=== PATIENT | male | born 1965 ===

== ENCOUNTER 2018-02-07 17:34 | Inpatient (IN) | payer MEDICARE, MEDICAID ==
--- NOTE | 2018-02-07 18:35 | C.PDOC ---
History Of Present Illness 52 y/o male, with PMHx of HIV, CVA with left side weakness, seizure, and schizophrenia, is sent to ED from [facility] for elevated BUN and creatinine. Limited history, pt is awake but confused. No complaints at this time. Time Seen by Provider: 02/07/18 18:34 Chief Complaint (Nursing): Abnormal Labs History Per: Patient History/Exam Limitations: clinical condition Past Medical History Reviewed: Historical Data, Nursing Documentation, Vital Signs Vital Signs: Last Vital Signs Temp 98.2 F 02/08/18 16:00 Pulse 83 02/08/18 16:00 Resp 20 02/08/18 16:00 BP 135/72 02/08/18 16:00 Pulse Ox 99 02/08/18 16:00 - Medical History PMH: HIV, Schizophrenia, Seizures, TIA Family History: States: Unknown Family Hx - Social History Hx Alcohol Use: No Hx Substance Use: No Review Of Systems Review Of Systems: ROS cannot be obtained secondary to pt's inabilty to answer questions. Physical Exam - Physical Exam Appears: Non-toxic, No Acute Distress Skin: Normal Color, Warm, Dry Head: Atraumatic, Normacephalic Eye(s): bilateral: Normal Inspection Oral Mucosa: Moist Neck: Supple Cardiovascular: Rhythm Regular Respiratory: Normal Breath Sounds, No Rales, No Rhonchi, No Wheezing Gastrointestinal/Abdominal: Soft, No Tenderness Back: No CVA Tenderness Neurological/Psych: Oriented x3 ED Course And Treatment - Laboratory Results Result Diagrams: 02/08/18 13:37 02/08/18 13:37 O2 Sat by Pulse Oximetry: 98 (RA) Pulse Ox Interpretation: Normal Medical Decision Making Medical Decision Makin yr old male presents from [place] for Elevated BUN:Cr. No other complaints. Has been at baseline mentation and physical capacity per RN from [facility]. Unk baseline Cr- per [facility] staff. Will likely require renal workup. Plan: Blood work UA CXR bladder scan Appreciate consult w/ Dr. Kait Gonzalez, to admit to his service. Afebrile here, no N/V. Urine unremarkable. Disposition - Disposition Disposition: HOSPITALIZED Disposition Time: 23:00 Condition: GOOD - Clinical Impression Clinical Impression: NIURKA (acute kidney injury), Elevated BUN, Elevated creatine kinase - Scribe Statement The provider has reviewed the documentation as recorded by the Scribe KP All medical record entries made by the Scribe were at my direction and personally dictated by me. I have reviewed the chart and agree that the record accurately reflects my personal performance of the history, physical exam, medical decision making, and the department course for this patient. I have also personally directed, reviewed, and agree with the discharge instructions and disposition.
[2018-02-07 18:37] LABS: BASO % 0.3 % (0.0-2.0); EOS # 0.1 K/uL (0.0-0.7); EOS % 1.3 % (0.0-4.0); MEAN CELL VOLUME 96.2 fL (80.0-94.0); MEAN CORPUSCULAR HEMOGLOBIN 32.5 pg (27.0-31.0); MEAN CORPUSCULAR HGB CONC 33.8 g/dL (33.0-37.0); MEAN PLATELET VOLUME 7.3 fL (7.2-11.7); MONO # 0.9 K/uL (0.0-0.8); MONO % 8.7 % (0.0-10.0); NEUT # 7.6 K/uL (1.8-7.0); NEUT % 70.7 % (50.0-75.0); RBC 3.39 Mil/uL (4.40-5.90); WHITE BLOOD COUNT 10.8 K/uL (4.8-10.8)
[2018-02-07 18:47] LABS: ALB/GLOB RATIO 1.1 (1.0-2.1); ALBUMIN 3.7 g/dL (3.5-5.0); CALCIUM 8.8 mg/dl (8.6-10.4)
[2018-02-07 20:33] LABS: URINE BACTERIA RARE (<OCC); URINE BILIRUBIN NEGATIVE (NEGATIVE); URINE BLOOD 2+ (NEGATIVE); URINE CLARITY Hazy (Clear); URINE COLOR Yellow (YELLOW); URINE GLUCOSE (UA) 3+ mg/dL (Normal); URINE LEUKOCYTE ESTERASE TRACE Leu/uL (Negative); URINE PROTEIN 2+ mg/dL (NEGATIVE); URINE UROBILINOGEN NORMAL mg/dL (0.2-1.0)
[2018-02-08] MEDS ORDERED: ENTECAVIR 1 MG PO SCH (00:30)
[2018-02-08] MEDS ORDERED: Sodium Chloride 0.9% 1,000 ML IV SCH (00:45)
--- NOTE | 2018-02-08 10:23 | CP.PCM.CON ---
History of Present Illness - History of Present Illness History of Present Illness: 52 y/o male, with PMHx of HIV, h/o CVA with left side, seizure history, and schizophrenia, is sent to ED from [facility] for elevated BUN and creatinine. Limited history, pt is awake but confused. No complaints at this time. Unable to get hx from patient Review of Systems - Review of Systems Systems not reviewed;Unavailable: Altered Mental Status Past Patient History - Past Medical History & Family History Past Medical History?: Yes Pertinent Family History: unknown - Past Social History Smoking Status: Heavy Smoker > 10 Cigarettes Daily Home Situation {Lives}: Halfway - CARDIAC Hx Cardiac Disorders: No - PULMONARY Hx Respiratory Disorders: No - NEUROLOGICAL Hx Seizures: Yes Hx Transient Ischemic Attacks (TIA): Yes - HEENT Hx HEENT Problems: No - RENAL Hx Chronic Kidney Disease: No - ENDOCRINE/METABOLIC Hx Endocrine Disorders: No - HEMATOLOGICAL/ONCOLOGICAL Hx Human Immunodeficiency Virus (HIV): Yes - INTEGUMENTARY Hx Dermatological Problems: No - MUSCULOSKELETAL/RHEUMATOLOGICAL Hx Musculoskeletal Disorders: Yes Hx Falls: Yes Hx Fractures: Yes Hx Unsteady Gait: Yes - GASTROINTESTINAL Hx Gastrointestinal Disorders: No - GENITOURINARY/GYNECOLOGICAL Hx Genitourinary Disorders: No - PSYCHIATRIC Hx Schizophrenia: Yes Hx Substance Use: No - SURGICAL HISTORY Hx Surgeries: No - ANESTHESIA Hx Anesthesia: Yes Hx Anesthesia Reactions: No Meds Allergies/Adverse Reactions: Allergies Allergy/AdvReac Type Severity Reaction Status Date / Time No Known Allergies Allergy Unverified 02/07/18 17:47 - Medications Medications: Current Medications Docusate Sodium (Colace) 100 mg PO HS [facility] Emtricitabine/Tenofovir (Truvada 200 Mg-300 Mg) 1 tab PO DAILY [facility] PRN Reason: Protocol Heparin Sodium (Porcine) (Heparin) 5,000 units SC Q12 [facility] Home Med (Etravirine [Intelence]) 200 mg PO BID [facility] Home Med (Entecavir [Entecavir]) 1 mg PO Q2D [facility] Sodium Chloride (Sodium Chloride 0.9%) 1,000 mls @ 50 mls/hr IV .Q20H [facility] Last Admin: 02/08/18 01:15 Dose: 50 mls/hr Leucovorin Calcium (Leucovorin) 10 mg PO DAILY [facility] Mirtazapine (Remeron) 15 mg PO HS [facility] Olanzapine (Zyprexa) 15 mg PO HS [facility] Raltegravir (Isentress) 400 mg PO BID [facility] PRN Reason: Protocol Topiramate (Topamax) 25 mg PO DAILY [facility] Vitamin B Complex/Vitamin C (Berocca) 1 tab PO DAILY [facility] Physical Exam - Constitutional Appears: No Acute Distress, Chronically Ill - Head Exam Head Exam: ATRAUMATIC, NORMAL INSPECTION - Eye Exam Eye Exam: EOMI, Normal appearance - Neck Exam Neck exam: Positive for: Normal Inspection. Negative for: Tenderness - Respiratory Exam Respiratory Exam: Clear to Auscultation Bilateral, NORMAL BREATHING PATTERN - Cardiovascular Exam Cardiovascular Exam: REGULAR RHYTHM, +S1 - GI/Abdominal Exam GI & Abdominal Exam: Distended, Organomegaly. absent: Tenderness - Extremities Exam Extremities exam: Positive for: normal inspection. Negative for: tenderness - Neurological Exam Neurological exam: Altered - Skin Skin Exam: Dry, Warm Results - Vital Signs Recent Vital Signs: Last Vital Signs Temp 98.1 F 02/08/18 00:00 Pulse 78 02/08/18 00:00 Resp 20 02/08/18 00:00 BP 140/83 02/08/18 00:00 Pulse Ox 98 02/08/18 01:19 - Labs Result Diagrams: 02/07/18 18:31 02/07/18 18:31 Labs: Laboratory Results - last 24 hr 02/07/18 02/07/18 02/07/18 18:31 18:31 18:58 WBC 10.8 RBC 3.39 L Hgb 11.0 L Hct 32.6 L MCV 96.2 H MCH 32.5 H MCHC 33.8 RDW 15.0 H Plt Count 209 MPV 7.3 Neut % (Auto) 70.7 Lymph % (Auto) 19.0 L [place] % (Auto) 8.7 Eos % (Auto) 1.3 Baso % (Auto) 0.3 Neut # (Auto) 7.6 H Lymph # (Auto) 2.0 [place] # (Auto) 0.9 H Eos # (Auto) 0.1 Baso # (Auto) 0.0 Sodium 140 Potassium 4.1 Chloride 113 H Carbon Dioxide 13 L Anion Gap 18 BUN 58 H Creatinine 6.3 H Est GFR ( Amer) 11 Est GFR (Non-Af Amer) 9 Random Glucose 100 Calcium 8.8 Magnesium 2.4 H Total Bilirubin 0.4 AST 86 H ALT 50 Alkaline Phosphatase 116 Total Protein 7.2 Albumin 3.7 Globulin 3.5 Albumin/Globulin Ratio 1.1 Urine Color Urine Clarity Urine pH Ur Specific [place] Urine Protein Urine Glucose (UA) Urine Ketones Urine Blood Urine Nitrate Urine Bilirubin Urine Urobilinogen Ur Leukocyte Esterase Urine WBC (Auto) Urine RBC (Auto) Urine Bacteria 02/07/18 20:13 WBC RBC Hgb Hct MCV MCH MCHC RDW Plt Count MPV Neut % (Auto) Lymph % (Auto) [place] % (Auto) Eos % (Auto) Baso % (Auto) Neut # (Auto) Lymph # (Auto) [place] # (Auto) Eos # (Auto) Baso # (Auto) Sodium Potassium Chloride Carbon Dioxide Anion Gap BUN Creatinine Est GFR ( Amer) Est GFR (Non-Af Amer) Random Glucose Calcium Magnesium Total Bilirubin AST ALT Alkaline Phosphatase Total Protein Albumin Globulin Albumin/Globulin Ratio Urine Color Yellow Urine Clarity Hazy Urine pH 7.0 Ur Specific [place] 1.010 Urine Protein 2+ H Urine Glucose (UA) 3+ H Urine Ketones Negative Urine Blood 2+ H Urine Nitrate Negative Urine Bilirubin Negative Urine Urobilinogen Normal Ur Leukocyte Esterase Trace Urine WBC (Auto) 6 H Urine RBC (Auto) 10 H Urine Bacteria Rare Assessment & Plan (1) NIURKA (acute kidney injury) Status: Acute (2) HIV (human immunodeficiency virus infection) Status: Acute (3) CVA (cerebral vascular accident) Status: Acute (4) Metabolic acidosis Status: Acute - Assessment and Plan (Free Text) Assessment: Unclear if renal failure is acute or acute on chronic No hx from patient Will need to contact family or NH Will check renal US- just done Will hydrate with bicarb gtt Obtain further workup for possible NIURKA Plan: renal US serial chemistries quantify protein excretion renal workup IV bicarb gtt
[2018-02-08] MEDS: Emtricitabine-Tenofovir 200 mg-300 mg Tab PO SCH (10:58)
[2018-02-08] MEDS: Vitamin B Complex/Vitamin C Tab PO SCH (10:58)
--- NOTE | 2018-02-08 11:37 | RAD ---
Chest x-ray single frontal view History: Admission. Comparison: None available. Findings: Biapical pleural thickening with upper lobe granulomatous changes. Small to moderate left pleural effusion with left basilar airspace opacity. Venous congestion. Right hilar prominence. Tortuous ectatic aorta. Mild cardiomegaly. Degenerative changes in the spine and shoulders. Impression: Biapical pleural thickening with upper lobe granulomatous changes. Small to moderate left pleural effusion with left basilar airspace opacity. Venous congestion. Right hilar prominence. Tortuous ectatic aorta. Mild cardiomegaly.
[2018-02-08] MEDS: Sodium Bicarbonate 8.4% 50 MEQ in Dextrose 5%/0.45% NS 1,000 ML IV SCH (11:46)
--- NOTE | 2018-02-08 13:28 | US ---
Renal ultrasound History: Elevated BUN and creatinine levels. Comparison: None available. Technique: Real-time sonography was performed through the kidneys. Findings: Calcification and plaque within the aorta. Under distended but otherwise grossly preserved urinary bladder. Right kidney: 9.0 x 5.2 x 4.6 centimeters. Increased echogenicity of the renal parenchymal cortex suggestive for medical renal disease. Upper pole hypoechoic cyst measuring 1.2 x 0.8 x 1.0 centimeters. Mid to lower pole hypoechoic cyst measuring 1.8 x 2.1 x 2.1 centimeters. Upper pole echogenic nonobstructive calcification/calculus measuring 4 millimeters. Midpole echogenic nonobstructive calcification/calculus measuring 4 millimeters. Left Kidney: 11.4 x 6.0 x 5.7 centimeters. Increased echogenicity of the renal parenchymal cortex suggestive for medical renal disease. Midpole echogenic calcification/calculus measuring 6 x 5 x 8 millimeters. Moderate left renal hydronephrosis. Left proximal ureter is dilated. Impression: Moderate left renal hydroureteronephrosis. 8 millimeter echogenic calculus/calcification within the left kidney. Right renal cysts. Two 4 millimeter echogenic calcifications/calculi in the right kidney. No gross right renal hydronephrosis. Increased echogenicity of the bilateral renal parenchymal cortices suggestive for medical renal disease. Clinical correlation.
[2018-02-08 13:41] LABS: HEMOGLOBIN 11.8 g/dL (12.0-18.0); MEAN CELL VOLUME 96.9 fL (80.0-94.0); MEAN CORPUSCULAR HEMOGLOBIN 33.2 pg (27.0-31.0); MEAN CORPUSCULAR HGB CONC 34.2 g/dL (33.0-37.0); MEAN PLATELET VOLUME 6.9 fL (7.2-11.7); RBC 3.57 Mil/uL (4.40-5.90); RED CELL DISTRIBUTION WIDTH 14.9 % (11.5-14.5); WHITE BLOOD COUNT 8.7 K/uL (4.8-10.8)
[2018-02-08 13:59] LABS: ALBUMIN 3.8 g/dL (3.5-5.0); ALT/SGPT 51 U/L (21-72); AST/SGOT 86 U/L (17-59); BLOOD UREA NITROGEN 58 mg/dL (9-20); CALCIUM 8.9 mg/dl (8.6-10.4); GFR NON-AFRICAN AMERICAN 9
[2018-02-08 14:36] LABS: HEPATITIS B CORE AB NEGATIVE (NEGATIVE)
[2018-02-08] MEDS: INTELENCE 200 MG PO SCH (19:51)
--- NOTE | 2018-02-08 23:14 | CP.PCM.HP ---
History of Present Illness - History of Present Illness History of Present Illness: 52-year-old male patient with PMH of HIV, CVA with left-sided weakness, schizophrenia and seizure is sent to ED from [facility] as he had elevated BUN and creatinine. Unable to get detailed history from patient as he is awake but confused. Present on Admission - Present on Admission Any Indicators Present on Admission: No Past Patient History - Past Medical History & Family History Past Medical History?: Yes - Past Social History Smoking Status: Heavy Smoker > 10 Cigarettes Daily Home Situation {Lives}: Detention - CARDIAC Hx Cardiac Disorders: No - PULMONARY Hx Respiratory Disorders: No - NEUROLOGICAL Hx Seizures: Yes Hx Transient Ischemic Attacks (TIA): Yes - HEENT Hx HEENT Problems: No - RENAL Hx Chronic Kidney Disease: No - ENDOCRINE/METABOLIC Hx Endocrine Disorders: No - HEMATOLOGICAL/ONCOLOGICAL Hx Human Immunodeficiency Virus (HIV): Yes - INTEGUMENTARY Hx Dermatological Problems: No - MUSCULOSKELETAL/RHEUMATOLOGICAL Hx Musculoskeletal Disorders: Yes Hx Falls: Yes Hx Fractures: Yes Hx Unsteady Gait: Yes - GASTROINTESTINAL Hx Gastrointestinal Disorders: No - GENITOURINARY/GYNECOLOGICAL Hx Genitourinary Disorders: No - PSYCHIATRIC Hx Schizophrenia: Yes Hx Substance Use: No - SURGICAL HISTORY Hx Surgeries: No - ANESTHESIA Hx Anesthesia: Yes Hx Anesthesia Reactions: No Meds Allergies/Adverse Reactions: Allergies Allergy/AdvReac Type Severity Reaction Status Date / Time No Known Allergies Allergy Unverified 02/07/18 17:47 Physical Exam - Constitutional Appears: Well - Head Exam Head Exam: ATRAUMATIC, NORMAL INSPECTION, NORMOCEPHALIC - Eye Exam Eye Exam: EOMI, Normal appearance, PERRL Pupil Exam: NORMAL ACCOMODATION, PERRL - ENT Exam ENT Exam: Mucous Membranes Moist, Normal Exam - Neck Exam Neck exam: Positive for: Normal Inspection - Respiratory Exam Respiratory Exam: Decreased Breath Sounds - Cardiovascular Exam Cardiovascular Exam: REGULAR RHYTHM, +S1, +S2 - GI/Abdominal Exam GI & Abdominal Exam: Diminished Bowel Sounds, Soft - Rectal Exam Rectal Exam: Deferred Results - Vital Signs Recent Vital Signs: Last Vital Signs Temp 98.2 F 02/08/18 16:00 Pulse 83 02/08/18 16:00 Resp 20 02/08/18 16:00 BP 135/72 02/08/18 16:00 Pulse Ox 98 02/08/18 21:04 - Labs Result Diagrams: 02/09/18 08:29 02/10/18 07:33 Labs: Laboratory Results - last 24 hr 02/08/18 02/08/18 13:37 13:37 WBC 8.7 RBC 3.57 L Hgb 11.8 L Hct 34.6 L MCV 96.9 H MCH 33.2 H MCHC 34.2 RDW 14.9 H Plt Count 216 MPV 6.9 L Sodium 144 Potassium 3.8 Chloride 114 H Carbon Dioxide 14 L Anion Gap 20 BUN 58 H Creatinine 6.4 H Est GFR ( Amer) 11 Est GFR (Non-Af Amer) 9 Random Glucose 152 H Calcium 8.9 Phosphorus 5.9 H Total Bilirubin 0.4 AST 86 H ALT 51 Alkaline Phosphatase 118 Total Protein 7.7 Albumin 3.8 Globulin 3.9 Albumin/Globulin Ratio 1.0 Hep B Core IgM Ab Negative
[2018-02-09] MEDS: Sodium Bicarbonate 8.4% 50 MEQ in Dextrose 5%/0.45% NS 1,000 ML IV SCH ×2 (03:11→14:56)
[2018-02-09 08:38] LABS: HEPATITIS B SURFACE AG Reactive (NEGATIVE)
[2018-02-09 08:41] LABS: HEPATITIS C ANTIBODY REACTIVE (NEGATIVE)
[2018-02-09 08:41] LABS: BASO % 0.1 % (0.0-2.0); EOS # 0.2 K/uL (0.0-0.7); EOS % 2.8 % (0.0-4.0); HEMOGLOBIN 10.8 g/dL (12.0-18.0); LYMPH # 1.4 K/uL (1.0-4.3); LYMPH % 17.4 % (20.0-40.0); MEAN CELL VOLUME 96.6 fL (80.0-94.0); MEAN CORPUSCULAR HEMOGLOBIN 33.8 pg (27.0-31.0); MEAN PLATELET VOLUME 7.2 fL (7.2-11.7); MONO # 0.5 K/uL (0.0-0.8); MONO % 6.5 % (0.0-10.0); NEUT # 5.8 K/uL (1.8-7.0); NEUT % 73.2 % (50.0-75.0); RBC 3.21 Mil/uL (4.40-5.90); RED CELL DISTRIBUTION WIDTH 14.9 % (11.5-14.5)
[2018-02-09 08:49] LABS: HEP B SURFACE AG CONF CONFIRMED POSITIVE
[2018-02-09 09:04] LABS: ALB/GLOB RATIO 0.9 (1.0-2.1); ALBUMIN 3.1 g/dL (3.5-5.0); CALCIUM 8.4 mg/dl (8.6-10.4)
[2018-02-09] MEDS: INTELENCE 200 MG PO SCH ×2 (10:06→17:25)
[2018-02-09] MEDS: ENTECAVIR 1 MG PO SCH (10:07)
[2018-02-09] MEDS: Emtricitabine-Tenofovir 200 mg-300 mg Tab PO SCH (10:08)
--- NOTE | 2018-02-09 11:03 | CP.PCM.PN ---
Subjective - Date & Time of Evaluation Date of Evaluation: 02/09/18 Time of Evaluation: 08:30 - Subjective Subjective: clinically same Objective - Vital Signs/Intake and Output Vital Signs (last 24 hours): Temp Pulse Resp BP Pulse Ox 98 F 80 20 147/83 99 02/09/18 00:00 02/09/18 00:00 02/09/18 00:00 02/09/18 00:00 02/09/18 00:00 Intake and Output: 02/09/18 02/09/18 06:59 18:59 Intake Total 600 Output Total 750 Balance -150 - Medications Medications: Current Medications Docusate Sodium (Colace) 100 mg PO HS [facility] Last Admin: 02/08/18 22:03 Dose: 100 mg Emtricitabine/Tenofovir (Truvada 200 Mg-300 Mg) 1 tab PO DAILY [facility] PRN Reason: Protocol Last Admin: 02/09/18 10:08 Dose: 1 tab Heparin Sodium (Porcine) (Heparin) 5,000 units SC Q12 [facility] Last Admin: 02/09/18 10:06 Dose: 5,000 units Home Med (Patient's Own Medication) 1 tab PO BID [facility] Last Admin: 02/09/18 10:06 Dose: 1 tab Home Med (Patient's Own Medication) 1 tab PO Q2D [facility] Last Admin: 02/09/18 10:07 Dose: 1 tab Sodium Bicarbonate 50 meq/ (Dextrose/Sodium Chloride) 1,050 mls @ 75 mls/hr IV .Q14H [facility] Last Admin: 02/09/18 03:11 Dose: 75 mls/hr Leucovorin Calcium (Leucovorin) 10 mg PO DAILY [facility] Last Admin: 02/09/18 10:08 Dose: 10 mg Mirtazapine (Remeron) 15 mg PO HS [facility] Last Admin: 02/08/18 22:04 Dose: 15 mg Olanzapine (Zyprexa) 15 mg PO HS [facility] Last Admin: 02/08/18 22:04 Dose: 15 mg Raltegravir (Isentress) 400 mg PO BID [facility] PRN Reason: Protocol Last Admin: 02/09/18 10:07 Dose: 400 mg Topiramate (Topamax) 25 mg PO DAILY [facility] Last Admin: 02/09/18 10:06 Dose: 25 mg Vitamin B Complex/Vitamin C (Berocca) 1 tab PO DAILY [facility] Last Admin: 02/08/18 10:58 Dose: 1 tab - Labs Labs: 02/09/18 08:29 02/09/18 08:29 - Constitutional Appears: Well - Head Exam Head Exam: ATRAUMATIC, NORMAL INSPECTION, NORMOCEPHALIC - Eye Exam Eye Exam: EOMI, Normal appearance, PERRL Pupil Exam: NORMAL ACCOMODATION, PERRL - ENT Exam ENT Exam: Mucous Membranes Moist, Normal Exam - Neck Exam Neck Exam: Full ROM, Normal Inspection. absent: Lymphadenopathy - Respiratory Exam Respiratory Exam: Decreased Breath Sounds - Cardiovascular Exam Cardiovascular Exam: REGULAR RHYTHM, +S1, +S2 - GI/Abdominal Exam GI & Abdominal Exam: Soft, Diminished Bowel Sounds - Rectal Exam Rectal Exam: Deferred
[2018-02-09] MEDS: Vitamin B Complex/Vitamin C Tab PO SCH (11:04)
--- NOTE | 2018-02-09 15:56 | CP.PCM.CON ---
History of Present Illness - History of Present Illness History of Present Illness: 52 y/o male, with PMHx of HIV, h/o CVA with left side weakness , seizure history , and schizophrenia, is sent to ED from shelter for elevated BUN and creatinine. will adjust doses of HAART meds - d/c truvada add viread weekly and epivir daily referred for ID eval for Hep B Hep C in setting of HIV eval in progress for renal failure Review of Systems - Review of Systems All systems: reviewed and no additional remarkable complaints except - Constitutional Constitutional: As Per HPI - EENT Eyes: absent: As Per HPI, Blind Spots, Blurred Vision, Change in Vision, Decreased Night Vision, Diplopia, Discharge, Dry Eye, Exophthalmos, Floaters, Irritation, Itchy Eyes, Loss of Peripheral Vision, Pain, Photophobia, Requires Corrective Lenses, Sees Flashes, Spots in Vision, Tunnel Vision, Other Visual Disturbances, Loss of Vision, Other Ears: absent: As Per HPI, Decreased Hearing, Ear Discharge, Ear Pain, Tinnitus, Abnormal Hearing, Disequilibrium, Dizziness, Other Nose/Mouth/Throat: absent: As Per HPI, Epistaxis, Nasal Congestion, Nasal Discharge, Nasal Obstruction, Nasal Trauma, Nose Pain, Post Nasal Drip, Sinus Pain, Sinus Pressure, Bleeding Gums, Change in Voice, Dental Pain, Dry Mouth, Dysphagia, Halitosis, Hoarsness, Lip Swelling, Mouth Lesions, Mouth Pain, Odynophagia, Sore Throat, Throat Swelling, Tongue Swelling, Facial Pain, Neck Pain, Neck Mass, Other - Cardiovascular Cardiovascular: absent: As Per HPI, Acrocyanosis, Chest Pain, Chest Pain at Rest , Chest Pain with Activity, Claudication, Diaphoresis, Dyspnea, Dyspnea on Exertion, Edema, Irregular Heart Rhythm, Pain Radiating to Arm/Neck/Jaw, Leg Edema, Leg Ulcers, Lightheadedness, Orthopnea, Palpitations, Paroxysmal Nocturnal Dyspnea, Pedal Edema, Radiating Pain, Rapid Heart Rate, Slow Heart Rate, Syncope, Other - Respiratory Respiratory: absent: As Per HPI, Cough, Dyspnea, Hemoptysis, Dyspnea on Exertion , Wheezing, Snoring, Stridor, Pain on Inspiration, Chest Congestion, Excessive Mucous Production, Change in Mucous Color, Pain with Coughing, Other - Gastrointestinal Gastrointestinal: absent: As Per HPI, Abdominal Pain, Belching, Bloating, Change in Bowel Habits, Change in Stool Character, Coffee Ground Emesis, Constipation, Cramping, Diarrhea, Dyspepsia, Dysphagia, Early Satiety, Excessive Flatus, Fecal Incontinence, Heartburn, Hematemesis, Hematochezia, Loose Stools, Melena, Nausea, Odynophagia, Temesmus, Vomiting, Other - Genitourinary Genitourinary: absent: As Per HPI, Change in Urinary Stream, Difficulty Urinating, Dysuria, Flank Pain, Hematuria, Pyuria, Nocturia, Urinary Incontinence, Urinary Frequency, Urinary Hesitance, Urinary Urgency, Voiding Freq/Small Amts, Freq UTI, Hx Renal/Bladder Calculi, Hx /Renal Surgery, Bladder Distension, Other - Musculoskeletal Musculoskeletal: As Per HPI - Integumentary Integumentary: As Per HPI, Skin Pain, Wounds - Neurological Neurological: As Per HPI - Psychiatric Psychiatric: absent: As Per HPI, Abnormal Sleep Pattern, Anhedonia, Anxiety, Auditory Hallucinations, Behavioral Changes, Change in Appetite, Change in Libido, Confusion, Depression, Difficulty Concentrating, Hallucinations, Homicidal Ideation, Hopelessness, Irritability, Memory Loss, Mood Swings, Panic Attacks, Paranoia, Suicidal Ideation, Visual Hallucinations, Tactile Hallucinations, Other - Endocrine Endocrine: absent: As Per HPI, Change in Body Appearance, Change in Libido, Cold Intolorance, Deepening of Voice, Excessive Sweating, Fatigue, Flushing, Heat Intolorance, Increase in Ring/Shoe/Hat Size, Palpitations, Polydipsia, Polyphagia, Polyuria, Other - Hematologic/Lymphatic Hematologic: absent: As Per HPI, Easy Bleeding, Easy Bruising, Lymphadenopathy, Other Past Patient History - Past Medical History & Family History Past Medical History?: Yes - Past Social History Smoking Status: Heavy Smoker > 10 Cigarettes Daily Home Situation {Lives}: Alf - CARDIAC Hx Cardiac Disorders: No - PULMONARY Hx Respiratory Disorders: No - NEUROLOGICAL Hx Seizures: Yes Hx Transient Ischemic Attacks (TIA): Yes - HEENT Hx HEENT Problems: No - RENAL Hx Chronic Kidney Disease: No - ENDOCRINE/METABOLIC Hx Endocrine Disorders: No - HEMATOLOGICAL/ONCOLOGICAL Hx Human Immunodeficiency Virus (HIV): Yes - INTEGUMENTARY Hx Dermatological Problems: No - MUSCULOSKELETAL/RHEUMATOLOGICAL Hx Musculoskeletal Disorders: Yes Hx Falls: Yes Hx Fractures: Yes Hx Unsteady Gait: Yes - GASTROINTESTINAL Hx Gastrointestinal Disorders: No - GENITOURINARY/GYNECOLOGICAL Hx Genitourinary Disorders: No - PSYCHIATRIC Hx Schizophrenia: Yes Hx Substance Use: No - SURGICAL HISTORY Hx Surgeries: No - ANESTHESIA Hx Anesthesia: Yes Hx Anesthesia Reactions: No Meds Allergies/Adverse Reactions: Allergies Allergy/AdvReac Type Severity Reaction Status Date / Time No Known Allergies Allergy Unverified 02/07/18 17:47 - Medications Medications: Current Medications Docusate Sodium (Colace) 100 mg PO HS [facility] Last Admin: 02/08/18 22:03 Dose: 100 mg Emtricitabine/Tenofovir (Truvada 200 Mg-300 Mg) 1 tab PO DAILY [facility] PRN Reason: Protocol Last Admin: 02/09/18 10:08 Dose: 1 tab Heparin Sodium (Porcine) (Heparin) 5,000 units SC Q12 [facility] Last Admin: 02/09/18 10:06 Dose: 5,000 units Home Med (Patient's Own Medication) 1 tab PO BID [facility] Last Admin: 02/09/18 10:06 Dose: 1 tab Home Med (Patient's Own Medication) 1 tab PO Q2D [facility] Last Admin: 02/09/18 10:07 Dose: 1 tab Sodium Bicarbonate 50 meq/ (Dextrose/Sodium Chloride) 1,050 mls @ 75 mls/hr IV .Q14H [facility] Last Admin: 02/09/18 14:56 Dose: 75 mls/hr Leucovorin Calcium (Leucovorin) 10 mg PO DAILY [facility] Last Admin: 02/09/18 10:08 Dose: 10 mg Mirtazapine (Remeron) 15 mg PO HS [facility] Last Admin: 02/08/18 22:04 Dose: 15 mg Olanzapine (Zyprexa) 15 mg PO [facility] Last Admin: 02/08/18 22:04 Dose: 15 mg Raltegravir (Isentress) 400 mg PO BID [facility] PRN Reason: Protocol Last Admin: 02/09/18 10:07 Dose: 400 mg Topiramate (Topamax) 25 mg PO DAILY [facility] Last Admin: 02/09/18 10:06 Dose: 25 mg Vitamin B Complex/Vitamin C (Berocca) 1 tab PO DAILY [facility] Last Admin: 02/09/18 11:04 Dose: 1 tab Physical Exam - Constitutional Appears: Non-toxic, Confused, Cachectic, Chronically Ill - Head Exam Head Exam: ATRAUMATIC, NORMAL INSPECTION, NORMOCEPHALIC - Eye Exam Eye Exam: EOMI, PERRL. absent: Scleral icterus - ENT Exam ENT Exam: Mucous Membranes Dry, Normal External Ear Exam, Normal Oropharynx - Neck Exam Neck exam: Negative for: Lymphadenopathy - Respiratory Exam Respiratory Exam: Decreased Breath Sounds, Rhonchi - Cardiovascular Exam Cardiovascular Exam: REGULAR RHYTHM, +S1, +S2 - GI/Abdominal Exam GI & Abdominal Exam: Diminished Bowel Sounds, Distended, Soft. absent: Rebound , Rigid, Tenderness - Rectal Exam Rectal Exam: Deferred - Exam Exam: NORMAL INSPECTION - Extremities Exam Extremities exam: Positive for: pedal pulses present. Negative for: calf tenderness, pedal edema, tenderness - Back Exam Back exam: absent: CVA tenderness (L), CVA tenderness (R), paraspinal tenderness - Neurological Exam Neurological exam: Alert, Altered, CN II-XII Intact, Motor Sensory Deficit - Psychiatric Exam Psychiatric exam: Depressed - Skin Skin Exam: Dry Results - Vital Signs Recent Vital Signs: Last Vital Signs Temp 98.1 F 02/09/18 07:15 Pulse 89 02/09/18 07:15 Resp 20 02/09/18 07:15 BP 131/75 02/09/18 07:15 Pulse Ox 95 02/09/18 07:15 - Labs Result Diagrams: 02/09/18 08:29 02/09/18 08:29 Labs: Laboratory Results - last 24 hr 02/08/18 02/08/18 02/09/18 13:37 13:37 08:29 WBC RBC Hgb Hct MCV MCH MCHC RDW Plt Count MPV Neut % (Auto) Lymph % (Auto) [place] % (Auto) Eos % (Auto) Baso % (Auto) Neut # (Auto) Lymph # (Auto) [place] # (Auto) Eos # (Auto) Baso # (Auto) Sodium 144 142 Potassium 3.8 3.8 Chloride 114 H 116 H Carbon Dioxide 14 L 13 L Anion Gap 20 17 BUN 58 H 54 H Creatinine 6.4 H 5.9 H Est GFR ( Amer) 11 12 Est GFR (Non-Af Amer) 9 10 Random Glucose 152 H 96 Calcium 8.9 8.4 L Phosphorus 5.9 H Magnesium 2.3 Total Bilirubin 0.4 0.3 AST 86 H 63 H D ALT 51 50 Alkaline Phosphatase 118 99 Total Protein 7.7 6.4 Albumin 3.8 3.1 L Globulin 3.9 3.3 Albumin/Globulin Ratio 1.0 0.9 L Hep Bs Antigen Reactive Hep Bs Ag Neutralizatn Confirmed positive H Hep Bs Antibody Negative Hep B Core IgM Ab Negative Hepatitis C Antibody Reactive 02/09/18 08:29 WBC 8.0 RBC 3.21 L Hgb 10.8 L Hct 31.0 L MCV 96.6 H MCH 33.8 H MCHC 35.0 RDW 14.9 H Plt Count 189 MPV 7.2 Neut % (Auto) 73.2 Lymph % (Auto) 17.4 L [place] % (Auto) 6.5 Eos % (Auto) 2.8 Baso % (Auto) 0.1 Neut # (Auto) 5.8 Lymph # (Auto) 1.4 [place] # (Auto) 0.5 Eos # (Auto) 0.2 Baso # (Auto) 0.0 Sodium Potassium Chloride Carbon Dioxide Anion Gap BUN Creatinine Est GFR ( Amer) Est GFR (Non-Af Amer) Random Glucose Calcium Phosphorus Magnesium Total Bilirubin AST ALT Alkaline Phosphatase Total Protein Albumin Globulin Albumin/Globulin Ratio Hep Bs Antigen Hep Bs Ag Neutralizatn Hep Bs Antibody Hep B Core IgM Ab Hepatitis C Antibody Assessment & Plan (1) NIURKA (acute kidney injury) Status: Acute (2) CVA (cerebral vascular accident) Status: Acute (3) HIV (human immunodeficiency virus infection) Status: Acute - Assessment and Plan (Free Text) Assessment: will review old chart check t cells monitor viral load may need rx for hep C Plan: renal eval in progress
--- NOTE | 2018-02-09 16:15 | CP.PCM.CON ---
History of Present Illness - History of Present Illness History of Present Illness: GI Service Consult CC: difficulty swallowing HPI: 52 year old man with CVA, HIV, Chronic HBV and HCV, [facility] disease[facility] No further information presently available. GI consult requested because patient has difficulty swallowing. D/W RN- she witnessed patient holds food bolus in mouth and can not swallow food, then spits it out. Patient states this problem began today. He coughs a lot. Also notes odynophagia. Poor historian. Aphasia due to prior CVA. Review of Systems - Constitutional Constitutional: Weakness - EENT Eyes: absent: Change in Vision - Cardiovascular Cardiovascular: absent: Chest Pain - Respiratory Respiratory: Cough - Gastrointestinal Gastrointestinal: As Per HPI, Dysphagia. absent: Abdominal Pain, Change in Bowel Habits, Melena - Neurological Neurological: Abnormal Gait, Weakness - Psychiatric Psychiatric: Behavioral Changes Past Patient History - Past Medical History & Family History Past Medical History?: Yes - Past Social History Smoking Status: Heavy Smoker > 10 Cigarettes Daily Drugs: Other (history of illicit drug use) Home Situation {Lives}: Correction - CARDIAC Hx Cardiac Disorders: No - PULMONARY Hx Respiratory Disorders: No - NEUROLOGICAL Hx Seizures: Yes Hx Transient Ischemic Attacks (TIA): Yes - HEENT Hx HEENT Problems: No - RENAL Hx Chronic Kidney Disease: No - ENDOCRINE/METABOLIC Hx Endocrine Disorders: No - HEMATOLOGICAL/ONCOLOGICAL Hx Human Immunodeficiency Virus (HIV): Yes - INTEGUMENTARY Hx Dermatological Problems: No - MUSCULOSKELETAL/RHEUMATOLOGICAL Hx Musculoskeletal Disorders: Yes Hx Falls: Yes Hx Fractures: Yes Hx Unsteady Gait: Yes - GASTROINTESTINAL Hx Gastrointestinal Disorders: No - GENITOURINARY/GYNECOLOGICAL Hx Genitourinary Disorders: No - PSYCHIATRIC Hx Schizophrenia: Yes Hx Substance Use: No - SURGICAL HISTORY Hx Surgeries: No - ANESTHESIA Hx Anesthesia: Yes Hx Anesthesia Reactions: No Meds Allergies/Adverse Reactions: Allergies Allergy/AdvReac Type Severity Reaction Status Date / Time No Known Allergies Allergy Unverified 02/07/18 17:47 - Medications Medications: Current Medications Docusate Sodium (Colace) 100 mg PO HS [facility] Last Admin: 02/08/18 22:03 Dose: 100 mg Heparin Sodium (Porcine) (Heparin) 5,000 units SC Q12 [facility] Last Admin: 02/09/18 10:06 Dose: 5,000 units Home Med (Patient's Own Medication) 1 tab PO BID [facility] Last Admin: 02/09/18 10:06 Dose: 1 tab Home Med (Patient's Own Medication) 1 tab PO Q2D [facility] Last Admin: 02/09/18 10:07 Dose: 1 tab Sodium Bicarbonate 50 meq/ (Dextrose/Sodium Chloride) 1,050 mls @ 75 mls/hr IV .Q14H [facility] Last Admin: 02/09/18 14:56 Dose: 75 mls/hr Lamivudine (Epivir) 50 mg PO Q24H [facility] PRN Reason: Protocol Leucovorin Calcium (Leucovorin) 10 mg PO DAILY [facility] Last Admin: 02/09/18 10:08 Dose: 10 mg Mirtazapine (Remeron) 15 mg PO HS [facility] Last Admin: 02/08/18 22:04 Dose: 15 mg Olanzapine (Zyprexa) 15 mg PO HS [facility] Last Admin: 02/08/18 22:04 Dose: 15 mg Raltegravir (Isentress) 400 mg PO BID [facility] PRN Reason: Protocol Last Admin: 02/09/18 10:07 Dose: 400 mg Tenofovir Disoproxil Fumarate (Viread) 300 mg PO Q7D [facility] PRN Reason: Protocol Topiramate (Topamax) 25 mg PO DAILY [facility] Last Admin: 02/09/18 10:06 Dose: 25 mg Vitamin B Complex/Vitamin C (Berocca) 1 tab PO DAILY [facility] Last Admin: 02/09/18 11:04 Dose: 1 tab Physical Exam - Constitutional Appears: Chronically Ill - Head Exam Additional comments: bitemporal wasting - Eye Exam Eye Exam: Normal appearance. absent: Scleral icterus - Neck Exam Additional comments: No thrush visible - Respiratory Exam Respiratory Exam: NORMAL BREATHING PATTERN - Cardiovascular Exam Cardiovascular Exam: REGULAR RHYTHM - GI/Abdominal Exam GI & Abdominal Exam: Soft. absent: Tenderness - Extremities Exam Extremities exam: Positive for: normal inspection Results - Vital Signs Recent Vital Signs: Last Vital Signs Temp 98.5 F 02/09/18 15:59 Pulse 85 02/09/18 15:59 Resp 20 02/09/18 15:59 BP 148/86 02/09/18 15:59 Pulse Ox 98 02/09/18 15:59 - Labs Result Diagrams: 02/09/18 08:29 02/09/18 08:29 Labs: Laboratory Results - last 24 hr 0902/08/18 02/09/18 13:37 13:37 08:29 WBC RBC Hgb Hct MCV MCH MCHC RDW Plt Count MPV Neut % (Auto) Lymph % (Auto) [place] % (Auto) Eos % (Auto) Baso % (Auto) Neut # (Auto) Lymph # (Auto) [place] # (Auto) Eos # (Auto) Baso # (Auto) Sodium 144 142 Potassium 3.8 3.8 Chloride 114 H 116 H Carbon Dioxide 14 L 13 L Anion Gap 20 17 BUN 58 H 54 H Creatinine 6.4 H 5.9 H Est GFR ( Amer) 11 12 Est GFR (Non-Af Amer) 9 10 Random Glucose 152 H 96 Calcium 8.9 8.4 L Phosphorus 5.9 H Magnesium 2.3 Total Bilirubin 0.4 0.3 AST 86 H 63 H D ALT 51 50 Alkaline Phosphatase 118 99 Total Protein 7.7 6.4 Albumin 3.8 3.1 L Globulin 3.9 3.3 Albumin/Globulin Ratio 1.0 0.9 L Hep Bs Antigen Reactive Hep Bs Ag Neutralizatn Confirmed positive H Hep Bs Antibody Negative Hep B Core IgM Ab Negative Hepatitis C Antibody Reactive 02/09/18 08:29 WBC 8.0 RBC 3.21 L Hgb 10.8 L Hct 31.0 L MCV 96.6 H MCH 33.8 H MCHC 35.0 RDW 14.9 H Plt Count 189 MPV 7.2 Neut % (Auto) 73.2 Lymph % (Auto) 17.4 L [place] % (Auto) 6.5 Eos % (Auto) 2.8 Baso % (Auto) 0.1 Neut # (Auto) 5.8 Lymph # (Auto) 1.4 [place] # (Auto) 0.5 Eos # (Auto) 0.2 Baso # (Auto) 0.0 Sodium Potassium Chloride Carbon Dioxide Anion Gap BUN Creatinine Est GFR ( Amer) Est GFR (Non-Af Amer) Random Glucose Calcium Phosphorus Magnesium Total Bilirubin AST ALT Alkaline Phosphatase Total Protein Albumin Globulin Albumin/Globulin Ratio Hep Bs Antigen Hep Bs Ag Neutralizatn Hep Bs Antibody Hep B Core IgM Ab Hepatitis C Antibody Assessment & Plan (1) Dysphagia Assessment and Plan: Difficulty swallowing. Unknown cause. H/O CVA and HIV- both of which could be causative. R/O Aspiration/cough Rec: swallow evaluation. Esophagram vs Modified Barium Swallow- will await speech pathologist's recommendation. Aspiration precautions. Puree diet for now Status: Acute (2) NIURKA (acute kidney injury) Assessment and Plan: subacute onset. managed by renal senior financial consultant Status: Acute (3) CVA (cerebral vascular accident) Status: Acute (4) HIV (human immunodeficiency virus infection) Assessment and Plan: ID seeing patient. Status: Acute - Date & Time Date: 02/09/18 Time: 16:22
[2018-02-09] MEDS: LamiVUDine 10 mg/ml Syringe PO SCH (17:30)
[2018-02-10] MEDS: Sodium Bicarbonate 8.4% 50 MEQ in Dextrose 5%/0.45% NS 1,000 ML IV SCH (04:45)
[2018-02-10 08:53] LABS: URINE CREATININE 28.5 mg/dL
--- NOTE | 2018-02-10 09:48 | CP.PCM.PN ---
Subjective - Date & Time of Evaluation Date of Evaluation: 02/10/18 Time of Evaluation: 09:45 - Subjective Subjective: Appears same metabolic acidosis not changed despite bicarb gtt creat elevated still left hydro on US, has echogenic kidneys too HBV and hep C noted Objective - Vital Signs/Intake and Output Vital Signs (last 24 hours): Temp Pulse Resp BP Pulse Ox 98.7 F 100 H 18 138/84 98 02/10/18 08:00 02/10/18 08:00 02/10/18 08:00 02/10/18 08:00 02/10/18 08:00 Intake and Output: 02/10/18 02/10/18 06:59 18:59 Intake Total 600 Output Total 1200 Balance -600 - Medications Medications: Current Medications Docusate Sodium (Colace) 100 mg PO HS [facility] Last Admin: 02/09/18 21:27 Dose: 100 mg Heparin Sodium (Porcine) (Heparin) 5,000 units SC Q12 [facility] Last Admin: 02/09/18 21:27 Dose: 5,000 units Home Med (Patient's Own Medication) 1 tab PO BID [facility] Last Admin: 02/09/18 17:25 Dose: 1 tab Home Med (Patient's Own Medication) 1 tab PO Q2D [facility] Last Admin: 02/09/18 10:07 Dose: 1 tab Sodium Bicarbonate 50 meq/ (Dextrose/Sodium Chloride) 1,050 mls @ 75 mls/hr IV .Q14H [facility] Last Admin: 02/10/18 04:45 Dose: 75 mls/hr Lamivudine (Epivir) 50 mg PO Q24H [facility] PRN Reason: Protocol Last Admin: 02/09/18 17:30 Dose: 50 mg Leucovorin Calcium (Leucovorin) 10 mg PO DAILY [facility] Last Admin: 02/09/18 10:08 Dose: 10 mg Mirtazapine (Remeron) 15 mg PO HS [facility] Last Admin: 02/09/18 21:27 Dose: 15 mg Olanzapine (Zyprexa) 15 mg PO HS [facility] Last Admin: 02/09/18 21:27 Dose: 15 mg Raltegravir (Isentress) 400 mg PO BID [facility] PRN Reason: Protocol Last Admin: 02/09/18 17:25 Dose: 400 mg Tenofovir Disoproxil Fumarate (Viread) 300 mg PO Q7D [facility] PRN Reason: Protocol Last Admin: 02/09/18 16:00 Dose: 300 mg Topiramate (Topamax) 25 mg PO DAILY [facility] Last Admin: 02/09/18 10:06 Dose: 25 mg Vitamin B Complex/Vitamin C (Berocca) 1 tab PO DAILY [facility] Last Admin: 02/09/18 11:04 Dose: 1 tab - Labs Labs: 02/09/18 08:29 02/10/18 07:33 - Constitutional Appears: Confused, Cachectic, Chronically Ill - Head Exam Head Exam: ATRAUMATIC, NORMAL INSPECTION - Eye Exam Eye Exam: EOMI, Normal appearance - Neck Exam Neck Exam: Normal Inspection. absent: Tenderness - Respiratory Exam Respiratory Exam: Rhonchi, NORMAL BREATHING PATTERN - Cardiovascular Exam Cardiovascular Exam: REGULAR RHYTHM, +S1 - GI/Abdominal Exam GI & Abdominal Exam: Soft. absent: Tenderness - Extremities Exam Extremities Exam: Normal Inspection. absent: Tenderness - Neurological Exam Neurological Exam: Altered, Motor Sensory Deficit - Skin Skin Exam: Dry, Warm Assessment and Plan (1) NIURKA (acute kidney injury) Status: Acute (2) HIV (human immunodeficiency virus infection) Status: Acute (3) CVA (cerebral vascular accident) Status: Acute (4) Metabolic acidosis Status: Acute - Assessment and Plan (Free Text) Plan: increase concentration and rate bicarb gtt recommend consult for hydro repeat chemistries
[2018-02-10] MEDS: Vitamin B Complex/Vitamin C Tab PO SCH (10:42)
[2018-02-10] MEDS: INTELENCE 200 MG PO SCH ×2 (10:51→17:45)
[2018-02-10] MEDS: Sodium Bicarbonate 8.4% 75 MEQ in Dextrose 5%/0.45% NS 1,000 ML IV SCH ×2 (10:52→22:40)
--- NOTE | 2018-02-10 12:02 | CP.PCM.PN ---
Subjective - Date & Time of Evaluation Date of Evaluation: 02/10/18 Time of Evaluation: 11:57 - Subjective Subjective: 55 year old male w hx cva Hiv+ admitted w renal insuffency pt is awake but not oriented pt also has [place] Psyc problems. pt has elevated creatine despite sebastian Us shows mild unitilatral [place]. A Renal insuffency non obstructing calculi podssible hydro. Suggest CT abdomen and pelvis wo contrast. recomendations to followwith ct results. Georges Objective - Vital Signs/Intake and Output Vital Signs (last 24 hours): Temp Pulse Resp BP Pulse Ox 98.7 F 100 H 18 138/84 98 02/10/18 08:00 02/10/18 08:00 02/10/18 08:00 02/10/18 08:00 02/10/18 08:00 Intake and Output: 02/10/18 02/10/18 06:59 18:59 Intake Total 600 Output Total 1200 Balance -600 - Medications Medications: Current Medications Calcium Acetate (Phoslo) 667 mg PO TID [facility] Last Admin: 02/10/18 10:42 Dose: 667 mg Docusate Sodium (Colace) 100 mg PO HS [facility] Last Admin: 02/09/18 21:27 Dose: 100 mg Heparin Sodium (Porcine) (Heparin) 5,000 units SC Q12 [facility] Last Admin: 02/10/18 10:43 Dose: 5,000 units Home Med (Patient's Own Medication) 1 tab PO BID [facility] Last Admin: 02/10/18 10:51 Dose: 1 tab Home Med (Patient's Own Medication) 1 tab PO Q2D [facility] Last Admin: 02/09/18 10:07 Dose: 1 tab Sodium Bicarbonate 75 meq/ (Dextrose/Sodium Chloride) 1,075 mls @ 100 mls/hr IV .[id number] [facility] Last Admin: 02/10/18 10:52 Dose: Not Given Lamivudine (Epivir) 50 mg PO Q24H [facility] PRN Reason: Protocol Last Admin: 02/09/18 17:30 Dose: 50 mg Leucovorin Calcium (Leucovorin) 10 mg PO DAILY [facility] Last Admin: 02/10/18 10:43 Dose: 10 mg Mirtazapine (Remeron) 15 mg PO HS [facility] Last Admin: 02/09/18 21:27 Dose: 15 mg Olanzapine (Zyprexa) 15 mg PO HS [facility] Last Admin: 02/09/18 21:27 Dose: 15 mg Raltegravir (Isentress) 400 mg PO BID [facility] PRN Reason: Protocol Last Admin: 02/10/18 10:43 Dose: 400 mg Tenofovir Disoproxil Fumarate (Viread) 300 mg PO Q7D [facility] PRN Reason: Protocol Last Admin: 02/09/18 16:00 Dose: 300 mg Topiramate (Topamax) 25 mg PO DAILY [facility] Last Admin: 02/10/18 10:51 Dose: 25 mg Vitamin B Complex/Vitamin C (Berocca) 1 tab PO DAILY [facility] Last Admin: 02/10/18 10:42 Dose: 1 tab - Labs Labs: 02/09/18 08:29 02/10/18 07:33
--- NOTE | 2018-02-10 12:30 | CP.PCM.PN ---
Subjective - Date & Time of Evaluation Date of Evaluation: 02/10/18 Time of Evaluation: 08:00 - Subjective Subjective: weak lethargic afebrile truvada d/c'd swithed to viriad q7 d and epivir Objective - Vital Signs/Intake and Output Vital Signs (last 24 hours): Temp Pulse Resp BP Pulse Ox 98.7 F 100 H 18 138/84 98 02/10/18 08:00 02/10/18 08:00 02/10/18 08:00 02/10/18 08:00 02/10/18 08:00 Intake and Output: 02/10/18 02/10/18 06:59 18:59 Intake Total 600 Output Total 1200 Balance -600 - Medications Medications: Current Medications Calcium Acetate (Phoslo) 667 mg PO TID [facility] Last Admin: 02/10/18 10:42 Dose: 667 mg Docusate Sodium (Colace) 100 mg PO HS [facility] Last Admin: 02/09/18 21:27 Dose: 100 mg Heparin Sodium (Porcine) (Heparin) 5,000 units SC Q12 [facility] Last Admin: 02/10/18 10:43 Dose: 5,000 units Home Med (Patient's Own Medication) 1 tab PO BID [facility] Last Admin: 02/10/18 10:51 Dose: 1 tab Home Med (Patient's Own Medication) 1 tab PO Q2D [facility] Last Admin: 02/09/18 10:07 Dose: 1 tab Sodium Bicarbonate 75 meq/ (Dextrose/Sodium Chloride) 1,075 mls @ 100 mls/hr IV .[id number] [facility] Last Admin: 02/10/18 10:52 Dose: Not Given Lamivudine (Epivir) 50 mg PO Q24H [facility] PRN Reason: Protocol Last Admin: 02/09/18 17:30 Dose: 50 mg Leucovorin Calcium (Leucovorin) 10 mg PO DAILY [facility] Last Admin: 02/10/18 10:43 Dose: 10 mg Mirtazapine (Remeron) 15 mg PO HS [facility] Last Admin: 02/09/18 21:27 Dose: 15 mg Olanzapine (Zyprexa) 15 mg PO HS [facility] Last Admin: 02/09/18 21:27 Dose: 15 mg Raltegravir (Isentress) 400 mg PO BID [facility] PRN Reason: Protocol Last Admin: 02/10/18 10:43 Dose: 400 mg Tenofovir Disoproxil Fumarate (Viread) 300 mg PO Q7D [facility] PRN Reason: Protocol Last Admin: 02/09/18 16:00 Dose: 300 mg Topiramate (Topamax) 25 mg PO DAILY [facility] Last Admin: 02/10/18 10:51 Dose: 25 mg Vitamin B Complex/Vitamin C (Berocca) 1 tab PO DAILY [facility] Last Admin: 02/10/18 10:42 Dose: 1 tab - Labs Labs: 02/09/18 08:29 02/10/18 07:33 - Constitutional Appears: Non-toxic, Confused, Cachectic, Chronically Ill - Head Exam Head Exam: NORMOCEPHALIC - Eye Exam Eye Exam: PERRL - ENT Exam ENT Exam: Mucous Membranes Dry - Neck Exam Neck Exam: absent: Lymphadenopathy - Respiratory Exam Respiratory Exam: Decreased Breath Sounds - Cardiovascular Exam Cardiovascular Exam: REGULAR RHYTHM, +S1, +S2 - GI/Abdominal Exam GI & Abdominal Exam: Distended, Soft - Rectal Exam Rectal Exam: Deferred - Exam Exam: NORMAL INSPECTION - Extremities Exam Extremities Exam: absent: Pedal Edema Assessment and Plan (1) NIURKA (acute kidney injury) Status: Acute (2) CVA (cerebral vascular accident) Status: Acute (3) HIV (human immunodeficiency virus infection) Status: Acute - Assessment and Plan (Free Text) Assessment: rx renewed
--- NOTE | 2018-02-10 17:27 | CT ---
Date of service: 02/10/2018 PROCEDURE: CT Abdomen and Pelvis. HISTORY: [place] COMPARISON: Comparison made with renal ultrasound 02/08/2018 TECHNIQUE: Contiguous axial images of the abdomen and pelvis without oral or intravenous contrast. Coronal and Sagittal reformats generated. Radiation dose: Total exam DLP = 454.04 mGy-cm. This CT exam was performed using one or more of the following dose reduction techniques: Automated exposure control, adjustment of the mA and/or kV according to patient size, and/or use of iterative reconstruction technique. FINDINGS: LOWER THORAX: There are atelectasis and or infiltrate changes left lung base. Mild atelectasis right lung base. . Changes of bilateral gynecomastia. Heart is enlarged with small to medium-sized pericardial effusion. Moderately large hiatal hernia with what appears represent a small amount of fluid in the distal esophagus likely due to reflux to wall thickening may in part be due to protrusion gastric mucosa however esophagitis or other intrinsic/invasive wall lesion not excluded. Clinical correlation recommended. LIVER: Unremarkable. No gross lesion or ductal dilatation. GALLBLADDER AND BILE DUCTS: Gallbladder is incompletely distended which in part accounts for thick-walled appearance. No intraluminal gallbladder calculi however correlation Clinical correlation recommended to exclude cholecystitis. . PANCREAS: Pancreas is poorly delineated though appears grossly without obvious masses or collections. SPLEEN: Spleen appears mildly enlarged. . ADRENALS: No adrenal lesions seen. KIDNEYS AND URETERS: There is a large 14 mm x 11 mm calculus within the proximal/mid left ureter with moderate to significant left-sided hydronephrosis. There is some thinning of the cortex of the left kidney. Additional nonobstructing calculi noted in the posterior aspect midpole left kidney the largest measuring 6.9 mm. Multiple scattered smaller calculi are present in the upper mid and lower pole. There are several on nonobstructing calculi seen in the upper mid and lower pole right kidney, 2 of the largest located in the lower pole adjacent to 1 another with combined size of approximately 8.7 mm in greatest dimension. 2.9 mm right renal cyst. BLADDER: The urinary bladder is partially collapsed about an in situ unclamped Owens catheter. Evaluation is therefore limited. The urinary bladder wall thickening likely due incomplete distention although muscular hypertrophy presumably contributes. Air is also present within the bladder lumen likely due to recent instrumentation however correlation with urinalysis to exclude infection with gas-forming organism. REPRODUCTIVE: Visualized few tiny prostatic calcifications. APPENDIX: Normal-appearing appendix. BOWEL: Stomach is distended with fluid and air. Multiple distended fluid-filled loops of small bowel in the left upper and mid abdomen. . Evaluation of the bowel is limited due to the lack of oral contrast material. The very large amount of stool seen throughout the colon consistent with fecal retention/constipation. . PERITONEUM: Unremarkable. No fluid collection. No free air. Small fat containing umbilical hernia. . Small fat containing left inguinal hernia. LYMPH NODES: Unremarkable. No enlarged lymph nodes. VASCULATURE: Unremarkable. No aortic aneurysm. BONES: Minor multilevel degenerative spondylosis of the lower thoracic and lumbar spine. ORIF hardware seen within the left femoral neck and proximal left femur. OTHER FINDINGS: None. IMPRESSION: There is a large calculus seen within the proximal to mid left ureter measuring up to approximately 14 mm in greatest dimension with moderate to significant left-sided hydronephrosis. Multiple additional bilateral renal calculi are also present. Large amount of stool throughout the colon consistent with fecal retention/constipation. Multiple distended fluid-filled loops of proximal small bowel left upper and mid abdomen. Mild splenomegaly. Patchy atelectasis/infiltrate changes left lung base. Cardiomegaly with small to medium-sized pericardial effusion. Large hiatal hernia with fluid level consistent with reflux. Wall thickening of the distal esophagus likely due to protrusion gastric mucosa however esophagitis or other intrinsic/invasive wall lesion not excluded. Clinical correlation recommended to determine whether endoscopy followup is recommended to exclude invasive wall lesion. See above discussion for additional
[2018-02-10] MEDS: LamiVUDine 10 mg/ml Syringe PO SCH (17:46)
--- NOTE | 2018-02-10 18:06 | CP.PCM.PN ---
Subjective - Date & Time of Evaluation Date of Evaluation: 02/10/18 Time of Evaluation: 08:30 - Subjective Subjective: clinically same Objective - Vital Signs/Intake and Output Vital Signs (last 24 hours): Temp Pulse Resp BP Pulse Ox 98.3 F 96 H 20 128/78 97 02/10/18 15:53 02/10/18 15:53 02/10/18 15:53 02/10/18 15:53 02/10/18 15:53 Intake and Output: 02/10/18 02/10/18 06:59 18:59 Intake Total 600 950 Output Total 1200 500 Balance -600 450 - Medications Medications: Current Medications Calcium Acetate (Phoslo) 667 mg PO TID [facility] Last Admin: 02/10/18 17:44 Dose: 667 mg Docusate Sodium (Colace) 100 mg PO HS [facility] Last Admin: 02/09/18 21:27 Dose: 100 mg Heparin Sodium (Porcine) (Heparin) 5,000 units SC Q12 [facility] Last Admin: 02/10/18 10:43 Dose: 5,000 units Home Med (Patient's Own Medication) 1 tab PO BID [facility] Last Admin: 02/10/18 17:45 Dose: 1 tab Home Med (Patient's Own Medication) 1 tab PO Q2D [facility] Last Admin: 02/09/18 10:07 Dose: 1 tab Sodium Bicarbonate 75 meq/ (Dextrose/Sodium Chloride) 1,075 mls @ 100 mls/hr IV .[id number] [facility] Last Admin: 02/10/18 10:52 Dose: Not Given Lamivudine (Epivir) 50 mg PO Q24H [facility] PRN Reason: Protocol Last Admin: 02/10/18 17:46 Dose: 50 mg Leucovorin Calcium (Leucovorin) 10 mg PO DAILY [facility] Last Admin: 02/10/18 10:43 Dose: 10 mg Mirtazapine (Remeron) 15 mg PO HS [facility] Last Admin: 02/09/18 21:27 Dose: 15 mg Olanzapine (Zyprexa) 15 mg PO HS [facility] Last Admin: 02/09/18 21:27 Dose: 15 mg Raltegravir (Isentress) 400 mg PO BID [facility] PRN Reason: Protocol Last Admin: 02/10/18 17:48 Dose: 400 mg Tenofovir Disoproxil Fumarate (Viread) 300 mg PO Q7D [facility] PRN Reason: Protocol Last Admin: 02/09/18 16:00 Dose: 300 mg Topiramate (Topamax) 25 mg PO DAILY [facility] Last Admin: 02/10/18 10:51 Dose: 25 mg Vitamin B Complex/Vitamin C (Berocca) 1 tab PO DAILY [facility] Last Admin: 02/10/18 10:42 Dose: 1 tab - Labs Labs: 02/09/18 08:29 02/10/18 07:33
--- NOTE | 2018-02-11 00:40 | CON ---
DATE: 02/10/2018 REASON FOR CONSULTATION: Left hydronephrosis and small non-obstructing calculi in a patient with renal insufficiency. HISTORY OF PRESENT ILLNESS: The patient was transferred from nursing facility where he has been confined. He has a history of having a stroke and also has a history of psychosis and HIV. The patient was noted to have elevated creatinine. He was transferred to the hospital. He has a Owens catheter in place. The patient can give no further history or details. He is awake, but not able to answer questions. REVIEW OF SYSTEMS: The patient appears to have no history of respiratory problems. GI, musculoskeletal, vascular, neurological, and urological symptoms cannot be assessed through history because the patient is noncommunicative. PHYSICAL EXAMINATION: HEENT: Head, ears, eyes, nose, and throat are within normal limits. NECK: Supple. There are no bruits, nodes or masses. CHEST: Clear bilaterally. There are no rales or rhonchi. HEART: Has normal sinus rhythm. ABDOMEN: Soft and nontender. Bladder is not distended. EXTREMITIES: Normal. : Penis is normal. The Owens catheter is in good position. Testicles, epididymis and cord are normal. RECTAL: Shows a 3+ non-nodular prostate. LABORATORY DATA: I have reviewed the ultrasound report and films, which show a hydronephrosis and small left non-obstructing calculi. I have also reviewed the laboratory data. IMPRESSION: Mild left hydronephrosis. PLAN: I would suggest he get a CAT scan of the abdomen and pelvis to further delineate this hydronephrosis. It is unlikely that renal failure is due to unilateral hydronephrosis; however, no evaluation of the patient can be done without consent from a responsible person since the patient is noncommunicative. In addition to which the patient is high risk for anesthesia that would be necessary for cysto and insertion of stent. We will discuss with you if CAT scan confirms that there is a significant hydronephrosis. Pete Su MD
[2018-02-11 07:30] LABS: HEMOGLOBIN 9.6 g/dL (12.0-18.0); MEAN CELL VOLUME 96.7 fL (80.0-94.0); MEAN CORPUSCULAR HEMOGLOBIN 33.5 pg (27.0-31.0); MEAN CORPUSCULAR HGB CONC 34.6 g/dL (33.0-37.0); MEAN PLATELET VOLUME 6.5 fL (7.2-11.7); RBC 2.86 Mil/uL (4.40-5.90); RED CELL DISTRIBUTION WIDTH 14.8 % (11.5-14.5); WHITE BLOOD COUNT 6.9 K/uL (4.8-10.8)
[2018-02-11 07:58] LABS: ALB/GLOB RATIO 0.9 (1.0-2.1); ALBUMIN 2.8 g/dL (3.5-5.0); CALCIUM 8.5 mg/dl (8.6-10.4)
[2018-02-11] MEDS: Sodium Bicarbonate 8.4% 75 MEQ in Dextrose 5%/0.45% NS 1,000 ML IV SCH ×2 (08:30→17:21)
--- NOTE | 2018-02-11 09:48 | CP.PCM.PN ---
Subjective - Date & Time of Evaluation Date of Evaluation: 02/11/18 Time of Evaluation: 09:45 - Subjective Subjective: remains weak, poor appetite Tenofovir stopped- might exacerbate renal failure Creat decreased to 5.3, met acidosis better with fluids [place] described as mild- followed by Objective - Vital Signs/Intake and Output Vital Signs (last 24 hours): Temp Pulse Resp BP Pulse Ox 98.1 F 98 H 20 127/79 99 02/11/18 08:00 02/11/18 08:00 02/11/18 08:00 02/11/18 08:00 02/11/18 08:00 Intake and Output: 02/11/18 02/11/18 06:59 18:59 Intake Total 250 600 Output Total 700 700 Balance -450 -100 - Medications Medications: Current Medications Calcium Acetate (Phoslo) 667 mg PO TID [facility] Last Admin: 02/10/18 17:44 Dose: 667 mg Docusate Sodium (Colace) 100 mg PO HS [facility] Last Admin: 02/10/18 21:52 Dose: 100 mg Heparin Sodium (Porcine) (Heparin) 5,000 units SC Q12 [facility] Last Admin: 02/10/18 21:53 Dose: 5,000 units Home Med (Patient's Own Medication) 1 tab PO BID [facility] Last Admin: 02/10/18 17:45 Dose: 1 tab Home Med (Patient's Own Medication) 1 tab PO Q2D [facility] Last Admin: 02/09/18 10:07 Dose: 1 tab Sodium Bicarbonate 75 meq/ (Dextrose/Sodium Chloride) 1,075 mls @ 100 mls/hr IV .[id number] [facility] Last Admin: 02/11/18 08:30 Dose: 100 mls/hr Lamivudine (Epivir) 50 mg PO Q24H [facility] PRN Reason: Protocol Last Admin: 02/10/18 17:46 Dose: 50 mg Leucovorin Calcium (Leucovorin) 10 mg PO DAILY [facility] Last Admin: 02/10/18 10:43 Dose: 10 mg Mirtazapine (Remeron) 15 mg PO [facility] Last Admin: 02/10/18 21:54 Dose: 15 mg Olanzapine (Zyprexa) 15 mg PO HS [facility] Last Admin: 02/10/18 21:52 Dose: 15 mg Raltegravir (Isentress) 400 mg PO BID [facility] PRN Reason: Protocol Last Admin: 02/10/18 17:48 Dose: 400 mg Tenofovir Disoproxil Fumarate (Viread) 300 mg PO Q7D [facility] PRN Reason: Protocol Last Admin: 02/09/18 16:00 Dose: 300 mg Topiramate (Topamax) 25 mg PO DAILY [facility] Last Admin: 02/10/18 10:51 Dose: 25 mg Vitamin B Complex/Vitamin C (Berocca) 1 tab PO DAILY [facility] Last Admin: 02/10/18 10:42 Dose: 1 tab - Labs Labs: 02/11/18 07:17 02/11/18 07:17 - Constitutional Appears: Confused, Cachectic, Chronically Ill - Head Exam Head Exam: ATRAUMATIC, NORMAL INSPECTION - Eye Exam Eye Exam: EOMI, Normal appearance - Neck Exam Neck Exam: Normal Inspection. absent: Tenderness - Respiratory Exam Respiratory Exam: Clear to Ausculation Bilateral, NORMAL BREATHING PATTERN - Cardiovascular Exam Cardiovascular Exam: REGULAR RHYTHM, +S1 - GI/Abdominal Exam GI & Abdominal Exam: Soft. absent: Tenderness - Extremities Exam Extremities Exam: Normal Inspection. absent: Tenderness - Neurological Exam Neurological Exam: Altered, Motor Sensory Deficit - Skin Skin Exam: Dry, Warm Assessment and Plan (1) NIURKA (acute kidney injury) Status: Acute (2) HIV (human immunodeficiency virus infection) Status: Acute (3) CVA (cerebral vascular accident) Status: Acute (4) Metabolic acidosis Status: Acute (5) CKD (chronic kidney disease) stage 5, GFR less than 15 ml/min Status: Acute - Assessment and Plan (Free Text) Plan: would continue IV bicarb gtt Serial chemistries Would need discussion with family before considering [employer]
[2018-02-11] MEDS: Vitamin B Complex/Vitamin C Tab PO SCH ×3 (10:59→13:25)
[2018-02-11] MEDS: INTELENCE 200 MG PO SCH ×4 (11:00→17:21)
[2018-02-11] MEDS: ENTECAVIR 1 MG PO SCH ×3 (11:00→13:27)
[2018-02-11] MEDS ORDERED: Barium Sulfate for Susp 98% w/w 340g Bottle ONE (11:09)
--- NOTE | 2018-02-11 11:53 | CP.PCM.PN ---
Subjective - Date & Time of Evaluation Date of Evaluation: 02/11/18 Time of Evaluation: 08:00 - Subjective Subjective: events noted off tenofovir +hydro rx in progress Objective - Vital Signs/Intake and Output Vital Signs (last 24 hours): Temp Pulse Resp BP Pulse Ox 98.1 F 98 H 20 127/79 99 02/11/18 08:00 02/11/18 08:00 02/11/18 08:00 02/11/18 08:00 02/11/18 08:00 Intake and Output: 02/11/18 02/11/18 06:59 18:59 Intake Total 250 600 Output Total 700 700 Balance -450 -100 - Medications Medications: Current Medications Calcium Acetate (Phoslo) 667 mg PO TID [facility] Last Admin: 02/11/18 10:59 Dose: 667 mg Docusate Sodium (Colace) 100 mg PO BID [facility] Heparin Sodium (Porcine) (Heparin) 5,000 units SC Q12 [facility] Last Admin: 02/11/18 11:00 Dose: 5,000 units Home Med (Patient's Own Medication) 1 tab PO BID [facility] Last Admin: 02/11/18 11:00 Dose: 1 tab Home Med (Patient's Own Medication) 1 tab PO Q2D [facility] Last Admin: 02/11/18 11:00 Dose: 1 tab Sodium Bicarbonate 75 meq/ (Dextrose/Sodium Chloride) 1,075 mls @ 100 mls/hr IV .[id number] [facility] Last Admin: 02/11/18 08:30 Dose: 100 mls/hr Metronidazole (Flagyl) 250 mg in 50 mls @ 100 mls/hr IVPB Q8H [facility] PRN Reason: Protocol Stop: 02/16/18 12:01 Lamivudine (Epivir) 50 mg PO Q24H [facility] PRN Reason: Protocol Last Admin: 02/10/18 17:46 Dose: 50 mg Leucovorin Calcium (Leucovorin) 10 mg PO DAILY [facility] Last Admin: 02/10/18 10:43 Dose: 10 mg Magnesium Hydroxide (Milk Of Magnesia) 30 ml PO HS [facility] Mirtazapine (Remeron) 15 mg PO HS [facility] Last Admin: 02/10/18 21:54 Dose: 15 mg Olanzapine (Zyprexa) 15 mg PO HS [facility] Last Admin: 02/10/18 21:52 Dose: 15 mg Pantoprazole Sodium (Protonix Inj) 40 mg IVP DAILY [facility] Last Admin: 02/11/18 10:59 Dose: 40 mg Raltegravir (Isentress) 400 mg PO BID [facility] PRN Reason: Protocol Last Admin: 02/11/18 11:00 Dose: 400 mg Tenofovir Disoproxil Fumarate (Viread) 300 mg PO Q7D [facility] PRN Reason: Protocol Last Admin: 02/09/18 16:00 Dose: 300 mg Topiramate (Topamax) 25 mg PO DAILY [facility] Last Admin: 02/11/18 10:59 Dose: 25 mg Vitamin B Complex/Vitamin C (Berocca) 1 tab PO DAILY [facility] Last Admin: 02/11/18 10:59 Dose: 1 tab - Labs Labs: 02/11/18 07:17 02/11/18 07:17 - Constitutional Appears: Confused, Cachectic, Chronically Ill - Head Exam Head Exam: NORMOCEPHALIC - Eye Exam Eye Exam: absent: Scleral icterus - ENT Exam ENT Exam: Mucous Membranes Dry - Neck Exam Neck Exam: absent: Lymphadenopathy - Respiratory Exam Respiratory Exam: Decreased Breath Sounds - Cardiovascular Exam Cardiovascular Exam: REGULAR RHYTHM - GI/Abdominal Exam GI & Abdominal Exam: Distended, Soft Assessment and Plan (1) INURKA (acute kidney injury) Status: Acute (2) CVA (cerebral vascular accident) Status: Acute (3) HIV (human immunodeficiency virus infection) Status: Acute - Assessment and Plan (Free Text) Assessment: await T cells
--- NOTE | 2018-02-11 11:59 | CP.PCM.PN ---
Subjective - Date & Time of Evaluation Date of Evaluation: 02/11/18 Time of Evaluation: 08:45 - Subjective Subjective: clinically same Objective - Vital Signs/Intake and Output Vital Signs (last 24 hours): Temp Pulse Resp BP Pulse Ox 98.1 F 98 H 20 127/79 99 02/11/18 08:00 02/11/18 08:00 02/11/18 08:00 02/11/18 08:00 02/11/18 08:00 Intake and Output: 02/11/18 02/11/18 06:59 18:59 Intake Total 250 600 Output Total 700 700 Balance -450 -100 - Medications Medications: Current Medications Calcium Acetate (Phoslo) 667 mg PO TID [facility] Last Admin: 02/11/18 10:59 Dose: 667 mg Docusate Sodium (Colace) 100 mg PO BID [facility] Heparin Sodium (Porcine) (Heparin) 5,000 units SC Q12 [facility] Last Admin: 02/11/18 11:00 Dose: 5,000 units Home Med (Patient's Own Medication) 1 tab PO BID [facility] Last Admin: 02/11/18 11:00 Dose: 1 tab Home Med (Patient's Own Medication) 1 tab PO Q2D [facility] Last Admin: 02/11/18 11:00 Dose: 1 tab Sodium Bicarbonate 75 meq/ (Dextrose/Sodium Chloride) 1,075 mls @ 100 mls/hr IV .[id number] [facility] Last Admin: 02/11/18 08:30 Dose: 100 mls/hr Metronidazole (Flagyl) 250 mg in 50 mls @ 100 mls/hr IVPB Q8H [facility] PRN Reason: Protocol Stop: 02/16/18 12:01 Lamivudine (Epivir) 50 mg PO Q24H [facility] PRN Reason: Protocol Last Admin: 02/10/18 17:46 Dose: 50 mg Leucovorin Calcium (Leucovorin) 10 mg PO DAILY [facility] Last Admin: 02/10/18 10:43 Dose: 10 mg Magnesium Hydroxide (Milk Of Magnesia) 30 ml PO HS [facility] Mirtazapine (Remeron) 15 mg PO HS [facility] Last Admin: 02/10/18 21:54 Dose: 15 mg Olanzapine (Zyprexa) 15 mg PO HS [facility] Last Admin: 02/10/18 21:52 Dose: 15 mg Pantoprazole Sodium (Protonix Inj) 40 mg IVP DAILY [facility] Last Admin: 02/11/18 10:59 Dose: 40 mg Raltegravir (Isentress) 400 mg PO BID [facility] PRN Reason: Protocol Last Admin: 02/11/18 11:00 Dose: 400 mg Tenofovir Disoproxil Fumarate (Viread) 300 mg PO Q7D [facility] PRN Reason: Protocol Last Admin: 02/09/18 16:00 Dose: 300 mg Topiramate (Topamax) 25 mg PO DAILY [facility] Last Admin: 02/11/18 10:59 Dose: 25 mg Vitamin B Complex/Vitamin C (Berocca) 1 tab PO DAILY [facility] Last Admin: 02/11/18 10:59 Dose: 1 tab - Labs Labs: 02/11/18 07:17 02/11/18 07:17 - Constitutional Appears: Well - Head Exam Head Exam: ATRAUMATIC, NORMAL INSPECTION, NORMOCEPHALIC - Eye Exam Eye Exam: EOMI, Normal appearance, PERRL Pupil Exam: NORMAL ACCOMODATION, PERRL - ENT Exam ENT Exam: Mucous Membranes Moist, Normal Exam - Neck Exam Neck Exam: Full ROM, Normal Inspection. absent: Lymphadenopathy - Respiratory Exam Respiratory Exam: Decreased Breath Sounds - Cardiovascular Exam Cardiovascular Exam: REGULAR RHYTHM, +S1, +S2 - GI/Abdominal Exam GI & Abdominal Exam: Soft, Diminished Bowel Sounds - Rectal Exam Rectal Exam: Deferred Assessment and Plan - Assessment and Plan (Free Text) Plan: Renal consult GI consult ID consultation Spoke to brother Lukas at length Status post modified barium swallow the report is pending MetroGel IV IPV Leucovorin Demerol Zyprexa Topamax PhosLo will also add Fleet enema as patient CT scan revealed out of stool also fluid levels Surgical consult with Dr. Pelayo As ordered 24 hour rneidng pt has renal stone on left side so s/ urology consult
[2018-02-11] MEDS: metroNIDAZOLE IV 250mg/50 ml 250 MG/50 ML BAG IVPB SCH ×2 (12:10→19:30)
[2018-02-11] MEDS: LamiVUDine 10 mg/ml Syringe PO SCH (17:20)
[2018-02-11 18:25] LABS: % CD4 (T HELPER CELL) 20 Percent (30-61); % CD8 (SUPPRESSOR T CELL) 58 Percent (12-42); ABSOLUTE CD4 CELLS 260 Cells/mcL (490-1740); ABSOLUTE CD8 CELLS 767 Cells/mcL (180-1170); ABSOLUTE LYMPHOCYTES 1326 Cells/mcL (850-3900); HELPER/SUPPRESSOR RATIO 0.34 Ratio (0.86-5.00)
[2018-02-11] MEDS: Magnesium Hydroxide Susp 30 ml UD PO SCH (22:08)
[2018-02-12 02:36] LABS: ANCA SCREEN NEGATIVE (NEGATIVE)
[2018-02-12] MEDS: metroNIDAZOLE IV 250mg/50 ml 250 MG/50 ML BAG IVPB SCH ×3 (03:42→20:24)
[2018-02-12] MEDS: Sodium Bicarbonate 8.4% 75 MEQ in Dextrose 5%/0.45% NS 1,000 ML IV SCH ×3 (04:30→19:21)
--- NOTE | 2018-02-12 05:28 | CP.PCM.CON ---
History of Present Illness - History of Present Illness History of Present Illness: Surgery 52 M w PMH of CVA, HIV, hep B/C came from assisted for elevated BUN and Cr. Pt was also found to have 1.5cm kidney stone on the L side w hydronephrosis. Ascites also noted. PT denes fever, abd pain. Tolerating Pureed diet. Pt was never on dialysis in the past. Poor historian 2/2 CVA PMH see above PSH tracheostomy Review of Systems - Review of Systems Review of Systems: See HPI Past Patient History - Past Medical History & Family History Past Medical History?: Yes - Past Social History Smoking Status: Heavy Smoker > 10 Cigarettes Daily Home Situation {Lives}: Fpc - CARDIAC Hx Cardiac Disorders: No - PULMONARY Hx Respiratory Disorders: No - NEUROLOGICAL HX Cerebrovascular Accident: Yes (left side weakness) - HEENT Hx HEENT Problems: No - RENAL Hx Chronic Kidney Disease: No - ENDOCRINE/METABOLIC Hx Endocrine Disorders: No - HEMATOLOGICAL/ONCOLOGICAL Hx Human Immunodeficiency Virus (HIV): Yes - INTEGUMENTARY Hx Dermatological Problems: No - MUSCULOSKELETAL/RHEUMATOLOGICAL Hx Musculoskeletal Disorders: Yes Hx Falls: Yes Hx Fractures: Yes Hx Unsteady Gait: Yes - GASTROINTESTINAL Hx Gastrointestinal Disorders: No - GENITOURINARY/GYNECOLOGICAL Hx Genitourinary Disorders: No - PSYCHIATRIC Hx Schizophrenia: Yes Hx Substance Use: No - SURGICAL HISTORY Hx Surgeries: No - ANESTHESIA Hx Anesthesia: Yes Hx Anesthesia Reactions: No Meds Allergies/Adverse Reactions: Allergies Allergy/AdvReac Type Severity Reaction Status Date / Time No Known Allergies Allergy Unverified 02/07/18 17:47 - Medications Medications: Current Medications Calcium Acetate (Phoslo) 667 mg PO TID [facility] Last Admin: 02/11/18 17:20 Dose: 667 mg Docusate Sodium (Colace) 100 mg PO BID [facility] Last Admin: 02/11/18 17:20 Dose: 100 mg Heparin Sodium (Porcine) (Heparin) 5,000 units SC Q12 [facility] Last Admin: 02/11/18 22:08 Dose: 5,000 units Home Med (Patient's Own Medication) 1 tab PO BID [facility] Last Admin: 02/11/18 17:21 Dose: 1 tab Home Med (Patient's Own Medication) 1 tab PO Q2D [facility] Last Admin: 02/11/18 13:27 Dose: 1 tab Sodium Bicarbonate 75 meq/ (Dextrose/Sodium Chloride) 1,075 mls @ 100 mls/hr IV .[id number] [facility] Last Admin: 02/12/18 04:30 Dose: 100 mls/hr Metronidazole (Flagyl) 250 mg in 50 mls @ 100 mls/hr IVPB Q8H [facility] PRN Reason: Protocol Stop: 02/16/18 12:01 Last Admin: 02/12/18 03:42 Dose: 100 mls/hr Ceftriaxone Sodium 1 gm/ (Sodium Chloride) 100 mls @ 100 mls/hr IVPB DAILY [facility] PRN Reason: Protocol Last Admin: 02/11/18 13:49 Dose: 100 mls/hr Lamivudine (Epivir) 50 mg PO Q24H [facility] PRN Reason: Protocol Last Admin: 02/11/18 17:20 Dose: 50 mg Leucovorin Calcium (Leucovorin) 10 mg PO DAILY [facility] Last Admin: 02/11/18 13:26 Dose: 10 mg Magnesium Hydroxide (Milk Of Magnesia) 30 ml PO HS [facility] Last Admin: 02/11/18 22:08 Dose: 30 ml Mirtazapine (Remeron) 15 mg PO HS [facility] Last Admin: 02/11/18 22:08 Dose: 15 mg Olanzapine (Zyprexa) 15 mg PO HS [facility] Last Admin: 02/11/18 22:08 Dose: 15 mg Pantoprazole Sodium (Protonix Inj) 40 mg IVP DAILY [facility] Last Admin: 02/11/18 10:59 Dose: 40 mg Raltegravir (Isentress) 400 mg PO BID [facility] PRN Reason: Protocol Last Admin: 02/11/18 17:20 Dose: 400 mg Tenofovir Disoproxil Fumarate (Viread) 300 mg PO Q7D [facility] PRN Reason: Protocol Last Admin: 02/09/18 16:00 Dose: 300 mg Topiramate (Topamax) 25 mg PO DAILY [facility] Last Admin: 02/11/18 13:26 Dose: 25 mg Vitamin B Complex/Vitamin C (Berocca) 1 tab PO DAILY [facility] Last Admin: 02/11/18 13:25 Dose: 1 tab Physical Exam - Head Exam Head Exam: ATRAUMATIC, NORMAL INSPECTION, NORMOCEPHALIC - Eye Exam Eye Exam: EOMI, Normal appearance, PERRL Pupil Exam: NORMAL ACCOMODATION, PERRL - ENT Exam ENT Exam: Mucous Membranes Moist, Normal Exam - Neck Exam Neck exam: Negative for: Normal Inspection Additional comments: tracheostomy scar healed - Respiratory Exam Respiratory Exam: NORMAL BREATHING PATTERN - Cardiovascular Exam Cardiovascular Exam: REGULAR RHYTHM, +S1, +S2 - GI/Abdominal Exam GI & Abdominal Exam: Soft. absent: Tenderness - Extremities Exam Extremities exam: Negative for: full ROM - Back Exam Back exam: NORMAL INSPECTION - Neurological Exam Neurological exam: Alert, Oriented x3 - Psychiatric Exam Psychiatric exam: Normal Mood - Skin Skin Exam: Dry, Intact Results - Vital Signs Recent Vital Signs: Last Vital Signs Temp 98.3 F 02/12/18 00:11 Pulse 102 H 02/12/18 00:11 Resp 20 02/12/18 00:11 BP 146/84 02/12/18 00:11 Pulse Ox 98 02/12/18 00:11 - Labs Result Diagrams: 02/11/18 07:17 02/11/18 07:17 Labs: Laboratory Results - last 24 hr 02/08/18 02/10/18 02/11/18 13:37 06:52 07:17 WBC 6.9 RBC 2.86 L Hgb 9.6 L Hct 27.7 L MCV 96.7 H MCH 33.5 H MCHC 34.6 RDW 14.8 H Plt Count 189 MPV 6.5 L Sodium Potassium Chloride Carbon Dioxide Anion Gap BUN Creatinine Est GFR ( Amer) Est GFR (Non-Af Amer) Random Glucose Calcium Phosphorus Magnesium Total Bilirubin AST ALT Alkaline Phosphatase Total Protein Albumin Globulin Albumin/Globulin Ratio ANCA Screen Negative c-ANCA Titer TNP Proteinase 3 (PR3) 1.1 H p-ANCA Titer TNP Atypical p-ANCA Titer TNP Myeloperoxidase Ab <1.0 Absolute Lymphs (Flow) 1326 % CD4 Cells 20 L Absolute CD4 Count 260 L T-Help/Suppress Ratio 0.34 L % CD8 Cells 58 H Absolute CD8 Count 767 HIV 1&2 Antibody Screen 02/11/18 02/11/18 07:17 17:23 WBC RBC Hgb Hct MCV MCH MCHC RDW Plt Count MPV Sodium 145 Potassium 3.7 Chloride 116 H Carbon Dioxide 17 L Anion Gap 15 BUN 53 H Creatinine 5.3 H Est GFR ( Amer) 14 Est GFR (Non-Af Amer) 11 Random Glucose 100 Calcium 8.5 L Phosphorus 4.4 Magnesium 2.1 Total Bilirubin 0.3 AST 50 ALT 42 Alkaline Phosphatase 83 Total Protein 5.9 L Albumin 2.8 L Globulin 3.1 Albumin/Globulin Ratio 0.9 L ANCA Screen c-ANCA Titer Proteinase 3 (PR3) p-ANCA Titer Atypical p-ANCA Titer Myeloperoxidase Ab Absolute Lymphs (Flow) % CD4 Cells Absolute CD4 Count T-Help/Suppress Ratio % CD8 Cells Absolute CD8 Count HIV 1&2 Antibody Screen Reactive Assessment & Plan - Assessment and Plan (Free Text) Assessment: Fluid on CT : Not enough to drain NIURKA Cr 5.4 possibly 2/2 hydronephrosis -Pt may need temporary catheter for dialysis if Cr doesn't improve after Urologic intervention -NO surgical intervention regarding fluid in abdomen seen on CT DW Dr. Leslie
[2018-02-12 07:42] LABS: HEMOGLOBIN 9.1 g/dL (12.0-18.0); MEAN CELL VOLUME 95.8 fL (80.0-94.0); MEAN CORPUSCULAR HEMOGLOBIN 33.3 pg (27.0-31.0); MEAN CORPUSCULAR HGB CONC 34.8 g/dL (33.0-37.0); MEAN PLATELET VOLUME 6.7 fL (7.2-11.7); RBC 2.72 Mil/uL (4.40-5.90); RED CELL DISTRIBUTION WIDTH 14.5 % (11.5-14.5); WHITE BLOOD COUNT 8.4 K/uL (4.8-10.8)
[2018-02-12 08:00] LABS: ALB/GLOB RATIO 0.8 (1.0-2.1); ALBUMIN 2.6 g/dL (3.5-5.0); CALCIUM 8.2 mg/dl (8.6-10.4)
--- NOTE | 2018-02-12 09:57 | RAD ---
Date of service: 02/11/2018 PROCEDURE: Modified barium swallow study. HISTORY: dysphagia COMPARISON: None available. TECHNIQUE: Under fluoroscopic guidance, barium meals of various consistency were administered to the patient by the speech pathologist. FINDINGS: Moderate aspiration noted with thin and honey thick liquids. IMPRESSION: Moderate aspiration observed of within an honey thick liquids. . Please refer to the detailed report and recommendations of the speech pathologist.
[2018-02-12] MEDS: Vitamin B Complex/Vitamin C Tab PO SCH (11:22)
[2018-02-12] MEDS: INTELENCE 200 MG PO SCH ×2 (11:25→18:02)
--- NOTE | 2018-02-12 11:36 | CP.PCM.PN ---
Subjective - Date & Time of Evaluation Date of Evaluation: 02/12/18 Time of Evaluation: 11:33 - Subjective Subjective: F/U dysphagia Pt states he ate breakfast well. D/W RN- pt ate slowly, seallowed slowly. Speech therapist- MBS shows aspiration. Discussed NG feeds or PEG with pt and he refuses. Will monitor. Abnl CT- hiatal hernia? Objective - Vital Signs/Intake and Output Vital Signs (last 24 hours): Temp Pulse Resp BP Pulse Ox 97.7 F 81 20 128/70 97 02/12/18 08:23 02/12/18 08:23 02/12/18 08:23 02/12/18 08:23 02/12/18 08:23 Intake and Output: 02/12/18 02/12/18 06:59 18:59 Intake Total 1080 800 Output Total 800 800 Balance 280 0 - Medications Medications: Current Medications Calcium Acetate (Phoslo) 667 mg PO TID [facility] Last Admin: 02/12/18 11:27 Dose: 667 mg Docusate Sodium (Colace) 100 mg PO BID [facility] Last Admin: 02/12/18 11:22 Dose: 100 mg Heparin Sodium (Porcine) (Heparin) 5,000 units SC Q12 [facility] Last Admin: 02/12/18 11:29 Dose: 5,000 units Home Med (Patient's Own Medication) 1 tab PO BID [facility] Last Admin: 02/12/18 11:25 Dose: 1 tab Home Med (Patient's Own Medication) 1 tab PO Q2D [facility] Last Admin: 02/11/18 13:27 Dose: 1 tab Sodium Bicarbonate 75 meq/ (Dextrose/Sodium Chloride) 1,075 mls @ 100 mls/hr IV .[id number] [facility] Last Admin: 02/12/18 04:30 Dose: 100 mls/hr Metronidazole (Flagyl) 250 mg in 50 mls @ 100 mls/hr IVPB Q8H [facility] PRN Reason: Protocol Stop: 02/16/18 12:01 Last Admin: 02/12/18 03:42 Dose: 100 mls/hr Ceftriaxone Sodium 1 gm/ (Sodium Chloride) 100 mls @ 100 mls/hr IVPB DAILY [facility] PRN Reason: Protocol Last Admin: 02/12/18 11:05 Dose: 100 mls/hr Lamivudine (Epivir) 50 mg PO Q24H [facility] PRN Reason: Protocol Last Admin: 02/11/18 17:20 Dose: 50 mg Leucovorin Calcium (Leucovorin) 10 mg PO DAILY [facility] Last Admin: 02/12/18 11:25 Dose: 10 mg Magnesium Hydroxide (Milk Of Magnesia) 30 ml PO HS [facility] Last Admin: 02/11/18 22:08 Dose: 30 ml Mirtazapine (Remeron) 15 mg PO HS [facility] Last Admin: 02/11/18 22:08 Dose: 15 mg Olanzapine (Zyprexa) 15 mg PO HS [facility] Last Admin: 02/11/18 22:08 Dose: 15 mg Pantoprazole Sodium (Protonix Inj) 40 mg IVP DAILY [facility] Last Admin: 02/12/18 11:28 Dose: 40 mg Raltegravir (Isentress) 400 mg PO BID [facility] PRN Reason: Protocol Last Admin: 02/12/18 11:22 Dose: 400 mg Tenofovir Disoproxil Fumarate (Viread) 300 mg PO Q7D [facility] PRN Reason: Protocol Last Admin: 02/09/18 16:00 Dose: 300 mg Topiramate (Topamax) 25 mg PO DAILY [facility] Last Admin: 02/11/18 13:26 Dose: 25 mg Vitamin B Complex/Vitamin C (Berocca) 1 tab PO DAILY [facility] Last Admin: 02/12/18 11:22 Dose: 1 tab - Labs Labs: 02/12/18 07:23 02/12/18 07:23 - Constitutional Appears: Chronically Ill - Head Exam Head Exam: NORMOCEPHALIC - Eye Exam Eye Exam: absent: Scleral icterus - Respiratory Exam Respiratory Exam: Clear to Ausculation Bilateral - Cardiovascular Exam Cardiovascular Exam: REGULAR RHYTHM - GI/Abdominal Exam GI & Abdominal Exam: Soft. absent: Tenderness (palpable fullness in mid abdomen ) Assessment and Plan (1) Dysphagia Assessment & Plan: At risk for [id number]. S/P CVA. Pt does not want NG or PEG. Will monitor May need EGD to evaluate abnl CT- likely hiatal hernia with fluid in distal esophagus Status: Acute (2) NIURKA (acute kidney injury) Assessment & Plan: May need dialysis Status: Acute (3) CVA (cerebral vascular accident) Status: Acute (4) HIV (human immunodeficiency virus infection) Assessment & Plan: Followed and managed by ID HIV, HCV, HBV Status: Acute
--- NOTE | 2018-02-12 13:04 | CP.PCM.PN ---
Subjective - Date & Time of Evaluation Date of Evaluation: 02/12/18 Time of Evaluation: 09:00 - Subjective Subjective: clinically same Objective - Vital Signs/Intake and Output Vital Signs (last 24 hours): Temp Pulse Resp BP Pulse Ox 97.7 F 81 20 128/70 97 02/12/18 08:23 02/12/18 08:23 02/12/18 08:23 02/12/18 08:23 02/12/18 08:23 Intake and Output: 02/12/18 02/12/18 06:59 18:59 Intake Total 1080 800 Output Total 800 800 Balance 280 0 - Medications Medications: Current Medications Calcium Acetate (Phoslo) 667 mg PO TID [facility] Last Admin: 02/12/18 11:27 Dose: 667 mg Docusate Sodium (Colace) 100 mg PO BID [facility] Last Admin: 02/12/18 11:22 Dose: 100 mg Heparin Sodium (Porcine) (Heparin) 5,000 units SC Q12 [facility] Last Admin: 02/12/18 11:29 Dose: 5,000 units Home Med (Patient's Own Medication) 1 tab PO BID [facility] Last Admin: 02/12/18 11:25 Dose: 1 tab Home Med (Patient's Own Medication) 1 tab PO Q2D [facility] Last Admin: 02/11/18 13:27 Dose: 1 tab Sodium Bicarbonate 75 meq/ (Dextrose/Sodium Chloride) 1,075 mls @ 100 mls/hr IV .[id number] [facility] Last Admin: 02/12/18 04:30 Dose: 100 mls/hr Metronidazole (Flagyl) 250 mg in 50 mls @ 100 mls/hr IVPB Q8H [facility] PRN Reason: Protocol Stop: 02/16/18 12:01 Last Admin: 02/12/18 12:39 Dose: 100 mls/hr Ceftriaxone Sodium 1 gm/ (Sodium Chloride) 100 mls @ 100 mls/hr IVPB DAILY [facility] PRN Reason: Protocol Last Admin: 02/12/18 11:05 Dose: 100 mls/hr Lamivudine (Epivir) 50 mg PO Q24H [facility] PRN Reason: Protocol Last Admin: 02/11/18 17:20 Dose: 50 mg Leucovorin Calcium (Leucovorin) 10 mg PO DAILY [facility] Last Admin: 02/12/18 11:25 Dose: 10 mg Magnesium Hydroxide (Milk Of Magnesia) 30 ml PO HS [facility] Last Admin: 02/11/18 22:08 Dose: 30 ml Mirtazapine (Remeron) 15 mg PO HS [facility] Last Admin: 02/11/18 22:08 Dose: 15 mg Olanzapine (Zyprexa) 15 mg PO HS [facility] Last Admin: 02/11/18 22:08 Dose: 15 mg Pantoprazole Sodium (Protonix Inj) 40 mg IVP DAILY [facility] Last Admin: 02/12/18 11:28 Dose: 40 mg Raltegravir (Isentress) 400 mg PO BID [facility] PRN Reason: Protocol Last Admin: 02/12/18 11:22 Dose: 400 mg Tenofovir Disoproxil Fumarate (Viread) 300 mg PO Q7D [facility] PRN Reason: Protocol Last Admin: 02/09/18 16:00 Dose: 300 mg Topiramate (Topamax) 25 mg PO DAILY [facility] Last Admin: 02/11/18 13:26 Dose: 25 mg Vitamin B Complex/Vitamin C (Berocca) 1 tab PO DAILY [facility] Last Admin: 02/12/18 11:22 Dose: 1 tab - Labs Labs: 02/12/18 07:23 02/12/18 07:23
[2018-02-12] MEDS ORDERED: Potassium Chloride 20 mEq/15 ml LIQ UD PO ONE (13:45)
--- NOTE | 2018-02-12 15:35 | CP.PCM.PN ---
Subjective - Date & Time of Evaluation Date of Evaluation: 02/12/18 Time of Evaluation: 08:00 - Subjective Subjective: more alert refusing PEG iv rx in progress Objective - Vital Signs/Intake and Output Vital Signs (last 24 hours): Temp Pulse Resp BP Pulse Ox 97.7 F 81 20 128/70 97 02/12/18 08:23 02/12/18 08:23 02/12/18 08:23 02/12/18 08:23 02/12/18 08:23 Intake and Output: 02/12/18 02/12/18 06:59 18:59 Intake Total 1080 800 Output Total 800 800 Balance 280 0 - Medications Medications: Current Medications Calcium Acetate (Phoslo) 667 mg PO TID [facility] Last Admin: 02/12/18 14:58 Dose: 667 mg Docusate Sodium (Colace) 100 mg PO BID [facility] Last Admin: 02/12/18 11:22 Dose: 100 mg Heparin Sodium (Porcine) (Heparin) 5,000 units SC Q12 [facility] Last Admin: 02/12/18 11:29 Dose: 5,000 units Home Med (Patient's Own Medication) 1 tab PO BID [facility] Last Admin: 02/12/18 11:25 Dose: 1 tab Home Med (Patient's Own Medication) 1 tab PO Q2D [facility] Last Admin: 02/11/18 13:27 Dose: 1 tab Sodium Bicarbonate 75 meq/ (Dextrose/Sodium Chloride) 1,075 mls @ 100 mls/hr IV .[id number] [facility] Last Admin: 02/12/18 04:30 Dose: 100 mls/hr Metronidazole (Flagyl) 250 mg in 50 mls @ 100 mls/hr IVPB Q8H [facility] PRN Reason: Protocol Stop: 02/16/18 12:01 Last Admin: 02/12/18 12:39 Dose: 100 mls/hr Ceftriaxone Sodium 1 gm/ (Sodium Chloride) 100 mls @ 100 mls/hr IVPB DAILY [facility] PRN Reason: Protocol Last Admin: 02/12/18 11:05 Dose: 100 mls/hr Lamivudine (Epivir) 50 mg PO Q24H [facility] PRN Reason: Protocol Last Admin: 02/11/18 17:20 Dose: 50 mg Leucovorin Calcium (Leucovorin) 10 mg PO DAILY [facility] Last Admin: 02/12/18 11:25 Dose: 10 mg Magnesium Hydroxide (Milk Of Magnesia) 30 ml PO HS [facility] Last Admin: 02/11/18 22:08 Dose: 30 ml Mirtazapine (Remeron) 15 mg PO HS [facility] Last Admin: 02/11/18 22:08 Dose: 15 mg Olanzapine (Zyprexa) 15 mg PO HS [facility] Last Admin: 02/11/18 22:08 Dose: 15 mg Pantoprazole Sodium (Protonix Inj) 40 mg IVP DAILY [facility] Last Admin: 02/12/18 11:28 Dose: 40 mg Raltegravir (Isentress) 400 mg PO BID [facility] PRN Reason: Protocol Last Admin: 02/12/18 11:22 Dose: 400 mg Tenofovir Disoproxil Fumarate (Viread) 300 mg PO Q7D [facility] PRN Reason: Protocol Last Admin: 02/09/18 16:00 Dose: 300 mg Topiramate (Topamax) 25 mg PO DAILY [facility] Last Admin: 02/12/18 14:58 Dose: 25 mg Vitamin B Complex/Vitamin C (Berocca) 1 tab PO DAILY [facility] Last Admin: 02/12/18 11:22 Dose: 1 tab - Labs Labs: 02/12/18 07:23 02/12/18 07:23 - Constitutional Appears: Non-toxic, Chronically Ill - Head Exam Head Exam: NORMOCEPHALIC - Eye Exam Eye Exam: PERRL - ENT Exam ENT Exam: Mucous Membranes Dry - Neck Exam Neck Exam: absent: Lymphadenopathy - Respiratory Exam Respiratory Exam: Decreased Breath Sounds - Cardiovascular Exam Cardiovascular Exam: REGULAR RHYTHM - GI/Abdominal Exam GI & Abdominal Exam: Distended - Rectal Exam Rectal Exam: Deferred - Extremities Exam Extremities Exam: absent: Pedal Edema - Back Exam Back Exam: absent: CVA tenderness (L), CVA tenderness (R), paraspinal tenderness - Neurological Exam Neurological Exam: Alert, Awake, CN II-XII Intact, Motor Sensory Deficit Assessment and Plan (1) NIURKA (acute kidney injury) Status: Acute (2) CVA (cerebral vascular accident) Status: Acute (3) HIV (human immunodeficiency virus infection) Status: Acute - Assessment and Plan (Free Text) Assessment: cont iv and po rx
--- NOTE | 2018-02-12 15:41 | CP.PCM.PN ---
Subjective - Date & Time of Evaluation Date of Evaluation: 02/12/18 Time of Evaluation: 15:39 - Subjective Subjective: on ivf with hco3 chronically ill poor historian jaz in Objective - Vital Signs/Intake and Output Vital Signs (last 24 hours): Temp Pulse Resp BP Pulse Ox 97.7 F 81 20 128/70 97 02/12/18 08:23 02/12/18 08:23 02/12/18 08:23 02/12/18 08:23 02/12/18 08:23 Intake and Output: 02/12/18 02/12/18 06:59 18:59 Intake Total 1080 800 Output Total 800 800 Balance 280 0 - Medications Medications: Current Medications Calcium Acetate (Phoslo) 667 mg PO TID [facility] Last Admin: 02/12/18 14:58 Dose: 667 mg Docusate Sodium (Colace) 100 mg PO BID [facility] Last Admin: 02/12/18 11:22 Dose: 100 mg Heparin Sodium (Porcine) (Heparin) 5,000 units SC Q12 [facility] Last Admin: 02/12/18 11:29 Dose: 5,000 units Home Med (Patient's Own Medication) 1 tab PO BID [facility] Last Admin: 02/12/18 11:25 Dose: 1 tab Home Med (Patient's Own Medication) 1 tab PO Q2D [facility] Last Admin: 02/11/18 13:27 Dose: 1 tab Sodium Bicarbonate 75 meq/ (Dextrose/Sodium Chloride) 1,075 mls @ 100 mls/hr IV .[id number] [facility] Last Admin: 02/12/18 04:30 Dose: 100 mls/hr Metronidazole (Flagyl) 250 mg in 50 mls @ 100 mls/hr IVPB Q8H [facility] PRN Reason: Protocol Stop: 02/16/18 12:01 Last Admin: 02/12/18 12:39 Dose: 100 mls/hr Ceftriaxone Sodium 1 gm/ (Sodium Chloride) 100 mls @ 100 mls/hr IVPB DAILY [facility] PRN Reason: Protocol Last Admin: 02/12/18 11:05 Dose: 100 mls/hr Lamivudine (Epivir) 50 mg PO Q24H [facility] PRN Reason: Protocol Last Admin: 02/11/18 17:20 Dose: 50 mg Leucovorin Calcium (Leucovorin) 10 mg PO DAILY [facility] Last Admin: 02/12/18 11:25 Dose: 10 mg Magnesium Hydroxide (Milk Of Magnesia) 30 ml PO HS [facility] Last Admin: 02/11/18 22:08 Dose: 30 ml Mirtazapine (Remeron) 15 mg PO HS [facility] Last Admin: 02/11/18 22:08 Dose: 15 mg Olanzapine (Zyprexa) 15 mg PO HS [facility] Last Admin: 02/11/18 22:08 Dose: 15 mg Pantoprazole Sodium (Protonix Inj) 40 mg IVP DAILY [facility] Last Admin: 02/12/18 11:28 Dose: 40 mg Raltegravir (Isentress) 400 mg PO BID [facility] PRN Reason: Protocol Last Admin: 02/12/18 11:22 Dose: 400 mg Tenofovir Disoproxil Fumarate (Viread) 300 mg PO Q7D [facility] PRN Reason: Protocol Last Admin: 02/09/18 16:00 Dose: 300 mg Topiramate (Topamax) 25 mg PO DAILY [facility] Last Admin: 02/12/18 14:58 Dose: 25 mg Vitamin B Complex/Vitamin C (Berocca) 1 tab PO DAILY [facility] Last Admin: 02/12/18 11:22 Dose: 1 tab - Labs Labs: 02/12/18 07:23 02/12/18 07:23 - Constitutional Appears: Confused, Chronically Ill - Head Exam Head Exam: ATRAUMATIC - Eye Exam Eye Exam: EOMI - ENT Exam ENT Exam: Mucous Membranes Moist - Respiratory Exam Respiratory Exam: Decreased Breath Sounds - Cardiovascular Exam Cardiovascular Exam: REGULAR RHYTHM - GI/Abdominal Exam GI & Abdominal Exam: Soft. absent: Tenderness - Extremities Exam Extremities Exam: Pedal Edema Assessment and Plan - Assessment and Plan (Free Text) Assessment: elxie obstructing stone on ivf with hco3 for metabolic acidosis f/u recommendations
[2018-02-12] MEDS: LamiVUDine 10 mg/ml Syringe PO SCH (18:00)
--- NOTE | 2018-02-12 18:14 | CP.PCM.PN ---
Subjective - Date & Time of Evaluation Date of Evaluation: 02/12/18 Time of Evaluation: 18:13 - Subjective Subjective: General surgery progress note for Dr. Gabby Handley, PGY-2 Pt S & E at bedside at 1620 Pt reports no problems. Currently eating pureed diet. Objective - Vital Signs/Intake and Output Vital Signs (last 24 hours): Temp Pulse Resp BP Pulse Ox 98.2 F 102 H 20 145/78 98 02/12/18 16:00 02/12/18 16:00 02/12/18 16:00 02/12/18 16:00 02/12/18 16:00 Intake and Output: 02/12/18 02/12/18 06:59 18:59 Intake Total 1080 800 Output Total 800 800 Balance 280 0 - Medications Medications: Current Medications Calcium Acetate (Phoslo) 667 mg PO TID [facility] Last Admin: 02/12/18 18:02 Dose: 667 mg Docusate Sodium (Colace) 100 mg PO BID [facility] Last Admin: 02/12/18 18:02 Dose: 100 mg Heparin Sodium (Porcine) (Heparin) 5,000 units SC Q12 [facility] Last Admin: 02/12/18 11:29 Dose: 5,000 units Home Med (Patient's Own Medication) 1 tab PO BID [facility] Last Admin: 02/12/18 18:02 Dose: 1 tab Home Med (Patient's Own Medication) 1 tab PO Q2D [facility] Last Admin: 02/11/18 13:27 Dose: 1 tab Sodium Bicarbonate 75 meq/ (Dextrose/Sodium Chloride) 1,075 mls @ 100 mls/hr IV .[id number] [facility] Last Admin: 02/12/18 04:30 Dose: 100 mls/hr Metronidazole (Flagyl) 250 mg in 50 mls @ 100 mls/hr IVPB Q8H [facility] PRN Reason: Protocol Stop: 02/16/18 12:01 Last Admin: 02/12/18 12:39 Dose: 100 mls/hr Ceftriaxone Sodium 1 gm/ (Sodium Chloride) 100 mls @ 100 mls/hr IVPB DAILY [facility] PRN Reason: Protocol Last Admin: 02/12/18 11:05 Dose: 100 mls/hr Lamivudine (Epivir) 50 mg PO Q24H [facility] PRN Reason: Protocol Last Admin: 02/12/18 18:00 Dose: 50 mg Leucovorin Calcium (Leucovorin) 10 mg PO DAILY [facility] Last Admin: 02/12/18 11:25 Dose: 10 mg Magnesium Hydroxide (Milk Of Magnesia) 30 ml PO HS [facility] Last Admin: 02/11/18 22:08 Dose: 30 ml Mirtazapine (Remeron) 15 mg PO HS [facility] Last Admin: 02/11/18 22:08 Dose: 15 mg Olanzapine (Zyprexa) 15 mg PO HS [facility] Last Admin: 02/11/18 22:08 Dose: 15 mg Pantoprazole Sodium (Protonix Inj) 40 mg IVP DAILY [facility] Last Admin: 02/12/18 11:28 Dose: 40 mg Raltegravir (Isentress) 400 mg PO BID [facility] PRN Reason: Protocol Last Admin: 02/12/18 18:02 Dose: 400 mg Tenofovir Disoproxil Fumarate (Viread) 300 mg PO Q7D [facility] PRN Reason: Protocol Last Admin: 02/09/18 16:00 Dose: 300 mg Topiramate (Topamax) 25 mg PO DAILY [facility] Last Admin: 02/12/18 14:58 Dose: 25 mg Vitamin B Complex/Vitamin C (Berocca) 1 tab PO DAILY [facility] Last Admin: 02/12/18 11:22 Dose: 1 tab - Labs Labs: 02/12/18 07:23 02/12/18 07:23 Assessment and Plan - Assessment and Plan (Free Text) Assessment: 52M
--- NOTE | 2018-02-12 18:15 | CP.PCM.PCO ---
Physician Communication Note - Physician Communication Note Physician Communication Note: Creatinine down trending, will place HD catheter if increases
[2018-02-12] MEDS: Magnesium Hydroxide Susp 30 ml UD PO SCH (22:32)
[2018-02-13] MEDS: Sodium Bicarbonate 8.4% 75 MEQ in Dextrose 5%/0.45% NS 1,000 ML IV SCH ×3 (02:30→15:14)
[2018-02-13] MEDS: metroNIDAZOLE IV 250mg/50 ml 250 MG/50 ML BAG IVPB SCH ×3 (03:58→20:30)
[2018-02-13 06:58] LABS: INR 1.2; PROTHROMBIN TIME 12.6 SECONDS (9.7-12.2)
[2018-02-13 07:16] LABS: BASO % 0.2 % (0.0-2.0); EOS # 0.2 K/uL (0.0-0.7); EOS % 3.2 % (0.0-4.0); HEMOGLOBIN 8.8 g/dL (12.0-18.0); LYMPH # 1.2 K/uL (1.0-4.3); LYMPH % 23.4 % (20.0-40.0); MEAN CELL VOLUME 97.2 fL (80.0-94.0); MEAN CORPUSCULAR HEMOGLOBIN 33.2 pg (27.0-31.0); MEAN CORPUSCULAR HGB CONC 34.1 g/dL (33.0-37.0); MEAN PLATELET VOLUME 6.9 fL (7.2-11.7); MONO # 0.7 K/uL (0.0-0.8); MONO % 13.2 % (0.0-10.0); NEUT # 3.1 K/uL (1.8-7.0); RBC 2.64 Mil/uL (4.40-5.90); RED CELL DISTRIBUTION WIDTH 14.7 % (11.5-14.5); WHITE BLOOD COUNT 5.1 K/uL (4.8-10.8)
[2018-02-13 07:54] LABS: ALB/GLOB RATIO 0.9 (1.0-2.1); ALBUMIN 2.7 g/dL (3.5-5.0); CALCIUM 8.3 mg/dl (8.6-10.4)
--- NOTE | 2018-02-13 10:28 | CP.PCM.PN ---
Subjective - Date & Time of Evaluation Date of Evaluation: 02/13/18 Time of Evaluation: 08:15 - Subjective Subjective: clinically same Objective - Vital Signs/Intake and Output Vital Signs (last 24 hours): Temp Pulse Resp BP Pulse Ox 97.9 F 90 20 127/73 97 02/13/18 08:21 02/13/18 08:21 02/13/18 08:21 02/13/18 08:21 02/13/18 08:21 Intake and Output: 02/13/18 02/13/18 06:59 18:59 Intake Total 1960 Output Total 1900 Balance 60 - Medications Medications: Current Medications Calcium Acetate (Phoslo) 667 mg PO TID [facility] Last Admin: 02/12/18 18:02 Dose: 667 mg Docusate Sodium (Colace) 100 mg PO BID [facility] Last Admin: 02/12/18 18:02 Dose: 100 mg Heparin Sodium (Porcine) (Heparin) 5,000 units SC Q12 [facility] Last Admin: 02/12/18 22:32 Dose: 5,000 units Home Med (Patient's Own Medication) 1 tab PO BID [facility] Last Admin: 02/12/18 18:02 Dose: 1 tab Home Med (Patient's Own Medication) 1 tab PO Q2D [facility] Last Admin: 02/11/18 13:27 Dose: 1 tab Sodium Bicarbonate 75 meq/ (Dextrose/Sodium Chloride) 1,075 mls @ 100 mls/hr IV .[id number] [facility] Last Admin: 02/13/18 02:30 Dose: Not Given Metronidazole (Flagyl) 250 mg in 50 mls @ 100 mls/hr IVPB Q8H [facility] PRN Reason: Protocol Stop: 02/16/18 12:01 Last Admin: 02/13/18 03:58 Dose: 100 mls/hr Ceftriaxone Sodium 1 gm/ (Sodium Chloride) 100 mls @ 100 mls/hr IVPB DAILY [facility] PRN Reason: Protocol Last Admin: 02/12/18 11:05 Dose: 100 mls/hr Lamivudine (Epivir) 50 mg PO Q24H [facility] PRN Reason: Protocol Last Admin: 02/12/18 18:00 Dose: 50 mg Leucovorin Calcium (Leucovorin) 10 mg PO DAILY [facility] Last Admin: 02/12/18 11:25 Dose: 10 mg Magnesium Hydroxide (Milk Of Magnesia) 30 ml PO HS [facility] Last Admin: 02/12/18 22:32 Dose: 30 ml Mirtazapine (Remeron) 15 mg PO HS [facility] Last Admin: 02/12/18 22:32 Dose: 15 mg Olanzapine (Zyprexa) 15 mg PO HS [facility] Last Admin: 02/12/18 22:32 Dose: 15 mg Pantoprazole Sodium (Protonix Inj) 40 mg IVP DAILY [facility] Last Admin: 02/12/18 11:28 Dose: 40 mg Raltegravir (Isentress) 400 mg PO BID [facility] PRN Reason: Protocol Last Admin: 02/12/18 18:02 Dose: 400 mg Tenofovir Disoproxil Fumarate (Viread) 300 mg PO Q7D [facility] PRN Reason: Protocol Last Admin: 02/09/18 16:00 Dose: 300 mg Topiramate (Topamax) 25 mg PO DAILY [facility] Last Admin: 02/12/18 14:58 Dose: 25 mg Vitamin B Complex/Vitamin C (Berocca) 1 tab PO DAILY [facility] Last Admin: 02/12/18 11:22 Dose: 1 tab - Labs Labs: 02/13/18 06:43 02/13/18 06:43 PT 12.6 SECONDS (9.7-12.2) H 02/13/18 06:43 INR 1.2 02/13/18 06:43
[2018-02-13] MEDS: Vitamin B Complex/Vitamin C Tab PO SCH (10:53)
[2018-02-13] MEDS: INTELENCE 200 MG PO SCH ×2 (10:54→17:41)
[2018-02-13] MEDS: ENTECAVIR 1 MG PO SCH (10:54)
--- NOTE | 2018-02-13 11:25 | CP.PCM.PN ---
Subjective - Date & Time of Evaluation Date of Evaluation: 02/13/18 Time of Evaluation: 11:23 - Subjective Subjective: Failed swallow study? Left hydro confirmed on CT scan creat better with IV fluids, bicarb gtt patient is poor dialysis candidate due to multiple co-morbidities Would consider left ureteral stent to maximize renal function Meanwhile continue IFV fluids Objective - Vital Signs/Intake and Output Vital Signs (last 24 hours): Temp Pulse Resp BP Pulse Ox 97.9 F 90 20 127/73 97 02/13/18 08:21 02/13/18 08:21 02/13/18 08:21 02/13/18 08:21 02/13/18 08:21 Intake and Output: 02/13/18 02/13/18 06:59 18:59 Intake Total 1960 Output Total 1900 Balance 60 - Medications Medications: Current Medications Calcium Acetate (Phoslo) 667 mg PO TID [facility] Last Admin: 02/13/18 10:54 Dose: Not Given Docusate Sodium (Colace) 100 mg PO BID [facility] Last Admin: 02/13/18 10:53 Dose: Not Given Heparin Sodium (Porcine) (Heparin) 5,000 units SC Q12 [facility] Last Admin: 02/13/18 10:53 Dose: Not Given Home Med (Patient's Own Medication) 1 tab PO BID [facility] Last Admin: 02/13/18 10:54 Dose: Not Given Home Med (Patient's Own Medication) 1 tab PO Q2D [facility] Last Admin: 02/13/18 10:54 Dose: Not Given Sodium Bicarbonate 75 meq/ (Dextrose/Sodium Chloride) 1,075 mls @ 100 mls/hr IV .[id number] [facility] Last Admin: 02/13/18 02:30 Dose: Not Given Metronidazole (Flagyl) 250 mg in 50 mls @ 100 mls/hr IVPB Q8H [facility] PRN Reason: Protocol Stop: 02/16/18 12:01 Last Admin: 02/13/18 03:58 Dose: 100 mls/hr Ceftriaxone Sodium 1 gm/ (Sodium Chloride) 100 mls @ 100 mls/hr IVPB DAILY [facility] PRN Reason: Protocol Last Admin: 02/13/18 10:54 Dose: 100 mls/hr Lamivudine (Epivir) 50 mg PO Q24H [facility] PRN Reason: Protocol Last Admin: 02/12/18 18:00 Dose: 50 mg Leucovorin Calcium (Leucovorin) 10 mg PO DAILY [facility] Last Admin: 02/13/18 10:54 Dose: Not Given Magnesium Hydroxide (Milk Of Magnesia) 30 ml PO HS [facility] Last Admin: 02/12/18 22:32 Dose: 30 ml Mirtazapine (Remeron) 15 mg PO HS [facility] Last Admin: 02/12/18 22:32 Dose: 15 mg Olanzapine (Zyprexa) 15 mg PO HS [facility] Last Admin: 02/12/18 22:32 Dose: 15 mg Pantoprazole Sodium (Protonix Inj) 40 mg IVP DAILY [facility] Last Admin: 02/13/18 10:55 Dose: 40 mg Raltegravir (Isentress) 400 mg PO BID [facility] PRN Reason: Protocol Last Admin: 02/13/18 10:53 Dose: Not Given Tenofovir Disoproxil Fumarate (Viread) 300 mg PO Q7D [facility] PRN Reason: Protocol Last Admin: 02/09/18 16:00 Dose: 300 mg Topiramate (Topamax) 25 mg PO DAILY [facility] Last Admin: 02/13/18 10:54 Dose: Not Given Vitamin B Complex/Vitamin C (Berocca) 1 tab PO DAILY [facility] Last Admin: 02/13/18 10:53 Dose: Not Given - Labs Labs: 02/13/18 06:43 02/13/18 06:43 PT 12.6 SECONDS (9.7-12.2) H 02/13/18 06:43 INR 1.2 02/13/18 06:43 Assessment and Plan (1) NIURKA (acute kidney injury) Status: Acute (2) HIV (human immunodeficiency virus infection) Status: Acute (3) CVA (cerebral vascular accident) Status: Acute (4) Metabolic acidosis Status: Acute (5) CKD (chronic kidney disease) stage 5, GFR less than 15 ml/min Status: Acute
[2018-02-13] MEDS ORDERED: Propofol 10 mg/ml Inj (20 ML) ONE (13:16)
[2018-02-13] MEDS: Sodium Chloride 0.9% 1,000 ML IV SCH (14:17)
[2018-02-13] MEDS: LamiVUDine 10 mg/ml Syringe PO SCH (17:40)
--- NOTE | 2018-02-13 18:24 | CP.PCM.PN ---
Subjective - Date & Time of Evaluation Date of Evaluation: 02/13/18 Time of Evaluation: 08:00 - Subjective Subjective: events noted more alert nad afeb failed swallowing has left hydro possible ureteral stent Objective - Vital Signs/Intake and Output Vital Signs (last 24 hours): Temp Pulse Resp BP Pulse Ox 98.1 F 89 20 146/81 96 02/13/18 16:00 02/13/18 16:00 02/13/18 16:00 02/13/18 16:00 02/13/18 16:00 Intake and Output: 02/13/18 02/13/18 06:59 18:59 Intake Total 1960 150 Output Total 1900 800 Balance 60 -650 - Medications Medications: Current Medications Calcium Acetate (Phoslo) 667 mg PO TID [facility] Last Admin: 02/13/18 17:40 Dose: 667 mg Docusate Sodium (Colace) 100 mg PO BID [facility] Last Admin: 02/13/18 17:40 Dose: 100 mg Heparin Sodium (Porcine) (Heparin) 5,000 units SC Q12 [facility] Last Admin: 02/13/18 10:53 Dose: Not Given Home Med (Patient's Own Medication) 1 tab PO BID [facility] Last Admin: 02/13/18 17:41 Dose: 1 tab Home Med (Patient's Own Medication) 1 tab PO Q2D [facility] Last Admin: 02/13/18 10:54 Dose: Not Given Sodium Bicarbonate 75 meq/ (Dextrose/Sodium Chloride) 1,075 mls @ 100 mls/hr IV .[id number] [facility] Last Admin: 02/13/18 15:14 Dose: 100 mls/hr Metronidazole (Flagyl) 250 mg in 50 mls @ 100 mls/hr IVPB Q8H [facility] PRN Reason: Protocol Stop: 02/16/18 12:01 Last Admin: 02/13/18 15:13 Dose: 100 mls/hr Ceftriaxone Sodium 1 gm/ (Sodium Chloride) 100 mls @ 100 mls/hr IVPB DAILY [facility] PRN Reason: Protocol Last Admin: 02/13/18 10:54 Dose: 100 mls/hr Sodium Chloride (Sodium Chloride 0.9%) 1,000 mls @ 50 mls/hr IV .Q20H [facility] Last Admin: 02/13/18 14:17 Dose: Not Given Lamivudine (Epivir) 50 mg PO Q24H [facility] PRN Reason: Protocol Last Admin: 02/13/18 17:40 Dose: 50 mg Leucovorin Calcium (Leucovorin) 10 mg PO DAILY [facility] Last Admin: 02/13/18 10:54 Dose: Not Given Magnesium Hydroxide (Milk Of Magnesia) 30 ml PO HS [facility] Last Admin: 02/12/18 22:32 Dose: 30 ml Mirtazapine (Remeron) 15 mg PO HS [facility] Last Admin: 02/12/18 22:32 Dose: 15 mg Olanzapine (Zyprexa) 15 mg PO HS [facility] Last Admin: 02/12/18 22:32 Dose: 15 mg Pantoprazole Sodium (Protonix Inj) 40 mg IVP DAILY [facility] Last Admin: 02/13/18 10:55 Dose: 40 mg Raltegravir (Isentress) 400 mg PO BID [facility] PRN Reason: Protocol Last Admin: 02/13/18 17:41 Dose: 400 mg Tenofovir Disoproxil Fumarate (Viread) 300 mg PO Q7D [facility] PRN Reason: Protocol Last Admin: 02/09/18 16:00 Dose: 300 mg Topiramate (Topamax) 25 mg PO DAILY [facility] Last Admin: 02/13/18 10:54 Dose: Not Given Vitamin B Complex/Vitamin C (Berocca) 1 tab PO DAILY [facility] Last Admin: 02/13/18 10:53 Dose: Not Given - Labs Labs: 02/13/18 06:43 02/13/18 06:43 PT 12.6 SECONDS (9.7-12.2) H 02/13/18 06:43 INR 1.2 02/13/18 06:43 - Constitutional Appears: No Acute Distress, Confused, Chronically Ill - Head Exam Head Exam: NORMOCEPHALIC - Eye Exam Eye Exam: absent: Scleral icterus - ENT Exam ENT Exam: Mucous Membranes Dry - Neck Exam Neck Exam: absent: Thyromegaly - Respiratory Exam Respiratory Exam: absent: Decreased Breath Sounds - Cardiovascular Exam Cardiovascular Exam: REGULAR RHYTHM, +S1, +S2 - GI/Abdominal Exam GI & Abdominal Exam: Distended - Exam Exam: NORMAL INSPECTION - Extremities Exam Extremities Exam: absent: Pedal Edema - Back Exam Back Exam: absent: CVA tenderness (L), CVA tenderness (R) - Neurological Exam Neurological Exam: Alert, Altered, Awake Assessment and Plan (1) NIURKA (acute kidney injury) Status: Acute (2) CVA (cerebral vascular accident) Status: Acute (3) HIV (human immunodeficiency virus infection) Status: Acute - Assessment and Plan (Free Text) Assessment: failed swallowing has left hydro possible ureteral stent
[2018-02-13] MEDS: Magnesium Hydroxide Susp 30 ml UD PO SCH (21:27)
[2018-02-14] MEDS: metroNIDAZOLE IV 250mg/50 ml 250 MG/50 ML BAG IVPB SCH ×3 (04:02→20:00)
--- NOTE | 2018-02-14 08:19 | CP.PCM.PN ---
Subjective - Date & Time of Evaluation Date of Evaluation: 02/14/18 Time of Evaluation: 08:25 - Subjective Subjective: f/u dysphagia. Denies fever, CP, SOB, RIBERA, cough, RB. melena, hemoptysis Objective - Vital Signs/Intake and Output Vital Signs (last 24 hours): Temp Pulse Resp BP Pulse Ox 97.9 F 85 20 118/76 99 02/14/18 00:00 02/14/18 00:00 02/14/18 00:00 02/14/18 00:00 02/14/18 00:00 Intake and Output: 02/14/18 02/14/18 06:59 18:59 Intake Total 1250 Output Total 1900 Balance -650 - Medications Medications: Current Medications Calcium Acetate (Phoslo) 667 mg PO TID [facility] Last Admin: 02/13/18 17:40 Dose: 667 mg Docusate Sodium (Colace) 100 mg PO BID [facility] Last Admin: 02/13/18 17:40 Dose: 100 mg Heparin Sodium (Porcine) (Heparin) 5,000 units SC Q12 [facility] Last Admin: 02/13/18 21:20 Dose: Not Given Home Med (Patient's Own Medication) 1 tab PO BID [facility] Last Admin: 02/13/18 17:41 Dose: 1 tab Home Med (Patient's Own Medication) 1 tab PO Q2D [facility] Last Admin: 02/13/18 10:54 Dose: Not Given Sodium Bicarbonate 75 meq/ (Dextrose/Sodium Chloride) 1,075 mls @ 100 mls/hr IV .[id number] [facility] Last Admin: 02/14/18 00:00 Dose: Not Given Metronidazole (Flagyl) 250 mg in 50 mls @ 100 mls/hr IVPB Q8H [facility] PRN Reason: Protocol Stop: 02/16/18 12:01 Last Admin: 02/14/18 04:02 Dose: 100 mls/hr Ceftriaxone Sodium 1 gm/ (Sodium Chloride) 100 mls @ 100 mls/hr IVPB DAILY [facility] PRN Reason: Protocol Last Admin: 02/13/18 10:54 Dose: 100 mls/hr Sodium Chloride (Sodium Chloride 0.9%) 1,000 mls @ 50 mls/hr IV .Q20H [facility] Last Admin: 02/13/18 14:17 Dose: Not Given Lamivudine (Epivir) 50 mg PO Q24H [facility] PRN Reason: Protocol Last Admin: 02/13/18 17:40 Dose: 50 mg Leucovorin Calcium (Leucovorin) 10 mg PO DAILY [facility] Last Admin: 02/13/18 10:54 Dose: Not Given Magnesium Hydroxide (Milk Of Magnesia) 30 ml PO HS [facility] Last Admin: 02/13/18 21:27 Dose: 30 ml Mirtazapine (Remeron) 15 mg PO HS [facility] Last Admin: 02/13/18 21:29 Dose: 15 mg Olanzapine (Zyprexa) 15 mg PO HS [facility] Last Admin: 02/13/18 21:30 Dose: 15 mg Pantoprazole Sodium (Protonix Inj) 40 mg IVP DAILY [facility] Last Admin: 02/13/18 10:55 Dose: 40 mg Raltegravir (Isentress) 400 mg PO BID [facility] PRN Reason: Protocol Last Admin: 02/13/18 17:41 Dose: 400 mg Tenofovir Disoproxil Fumarate (Viread) 300 mg PO Q7D [facility] PRN Reason: Protocol Last Admin: 02/09/18 16:00 Dose: 300 mg Topiramate (Topamax) 25 mg PO DAILY [facility] Last Admin: 02/13/18 10:54 Dose: Not Given Vitamin B Complex/Vitamin C (Berocca) 1 tab PO DAILY [facility] Last Admin: 02/13/18 10:53 Dose: Not Given - Labs Labs: 02/13/18 06:43 02/13/18 06:43 PT 12.6 SECONDS (9.7-12.2) H 02/13/18 06:43 INR 1.2 02/13/18 06:43 - Constitutional Appears: Well - Respiratory Exam Respiratory Exam: Clear to Ausculation Bilateral - Cardiovascular Exam Cardiovascular Exam: RRR - GI/Abdominal Exam GI & Abdominal Exam: Soft, Normal Bowel Sounds. absent: Tenderness, Mass, Rebound - Neurological Exam Neurological Exam: Alert, Oriented x3 Assessment and Plan (1) Esophagitis Assessment & Plan: Should not interfere with swallowing. Rec: PPI Status: Acute (2) Hiatal hernia Status: Acute (3) NIURKA (acute kidney injury) Status: Acute (4) CVA (cerebral vascular accident) Status: Acute (5) Dysphagia Assessment & Plan: Multifactorial. Poor p.o., but ate saturday. He does not want PEG. Status: Acute (6) HIV (human immunodeficiency virus infection) Status: Acute
--- NOTE | 2018-02-14 08:53 | CP.PCM.PN ---
Subjective - Date & Time of Evaluation Date of Evaluation: 02/13/18 Time of Evaluation: 14:00 - Subjective Subjective: Patient seen today , comfortable , denies any complaints , for EGD today Objective - Vital Signs/Intake and Output Vital Signs (last 24 hours): Temp Pulse Resp BP Pulse Ox 98.5 F 81 20 136/83 95 02/14/18 08:21 02/14/18 08:21 02/14/18 08:21 02/14/18 08:21 02/14/18 08:21 Intake and Output: 02/14/18 02/14/18 06:59 18:59 Intake Total 1250 Output Total 1900 Balance -650 - Medications Medications: Current Medications Calcium Acetate (Phoslo) 667 mg PO TID [facility] Last Admin: 02/13/18 17:40 Dose: 667 mg Docusate Sodium (Colace) 100 mg PO BID [facility] Last Admin: 02/13/18 17:40 Dose: 100 mg Heparin Sodium (Porcine) (Heparin) 5,000 units SC Q12 [facility] Last Admin: 02/13/18 21:20 Dose: Not Given Home Med (Patient's Own Medication) 1 tab PO BID [facility] Last Admin: 02/13/18 17:41 Dose: 1 tab Home Med (Patient's Own Medication) 1 tab PO Q2D [facility] Last Admin: 02/13/18 10:54 Dose: Not Given Sodium Bicarbonate 75 meq/ (Dextrose/Sodium Chloride) 1,075 mls @ 100 mls/hr IV .[id number] [facility] Last Admin: 02/14/18 00:00 Dose: Not Given Metronidazole (Flagyl) 250 mg in 50 mls @ 100 mls/hr IVPB Q8H [facility] PRN Reason: Protocol Stop: 02/16/18 12:01 Last Admin: 02/14/18 04:02 Dose: 100 mls/hr Ceftriaxone Sodium 1 gm/ (Sodium Chloride) 100 mls @ 100 mls/hr IVPB DAILY [facility] PRN Reason: Protocol Last Admin: 02/13/18 10:54 Dose: 100 mls/hr Sodium Chloride (Sodium Chloride 0.9%) 1,000 mls @ 50 mls/hr IV .Q20H [facility] Last Admin: 02/13/18 14:17 Dose: Not Given Lamivudine (Epivir) 50 mg PO Q24H [facility] PRN Reason: Protocol Last Admin: 02/13/18 17:40 Dose: 50 mg Leucovorin Calcium (Leucovorin) 10 mg PO DAILY [facility] Last Admin: 02/13/18 10:54 Dose: Not Given Magnesium Hydroxide (Milk Of Magnesia) 30 ml PO HS [facility] Last Admin: 02/13/18 21:27 Dose: 30 ml Mirtazapine (Remeron) 15 mg PO HS [facility] Last Admin: 02/13/18 21:29 Dose: 15 mg Olanzapine (Zyprexa) 15 mg PO HS [facility] Last Admin: 02/13/18 21:30 Dose: 15 mg Pantoprazole Sodium (Protonix Inj) 40 mg IVP DAILY [facility] Last Admin: 02/13/18 10:55 Dose: 40 mg Raltegravir (Isentress) 400 mg PO BID [facility] PRN Reason: Protocol Last Admin: 02/13/18 17:41 Dose: 400 mg Tenofovir Disoproxil Fumarate (Viread) 300 mg PO Q7D [facility] PRN Reason: Protocol Last Admin: 02/09/18 16:00 Dose: 300 mg Topiramate (Topamax) 25 mg PO DAILY [facility] Last Admin: 02/13/18 10:54 Dose: Not Given Vitamin B Complex/Vitamin C (Berocca) 1 tab PO DAILY [facility] Last Admin: 02/13/18 10:53 Dose: Not Given - Labs Labs: 02/13/18 06:43 02/13/18 06:43 PT 12.6 SECONDS (9.7-12.2) H 02/13/18 06:43 INR 1.2 02/13/18 06:43 Assessment and Plan - Assessment and Plan (Free Text) Assessment: A/P 52 y/o male, with PMHx of HIV, h/o CVA with left side, seizure history, and schizophrenia, admitted for elevated BUN and creatinine. bun/cr- trending down - today 59/5 CT scan-there is a large calculus seen within the proximal to mid left ureter measuring up to approximately 14 mm in greatest dimension with moderate to significant left-sided hydronephrosis. Multiple additional bilateral renal calculi are also present. D/w Dr. Laureano not a candidate for HD secondary to multiple co morbidities and recommends urology eval fo r possible stent Dr. Monroy reconsulted and plan for cystoscopy with stent tomorrow and requested medical clearance consent obtained from brother for procedure and anaesthesia D/w with Dr. Gonzalez , the above plan and need medical clearance for the procedure Order placed for cardiology consult with Dr. Chau
[2018-02-14 09:21] LABS: ALB/GLOB RATIO 0.9 (1.0-2.1); ALBUMIN 2.8 g/dL (3.5-5.0); CALCIUM 8.5 mg/dl (8.6-10.4)
--- NOTE | 2018-02-14 09:48 | RAD ---
Date of service: 02/14/2018 HISTORY: ileus COMPARISON: CT abdomen and pelvis from 02/10/2018. FINDINGS: BOWEL: There is large amount of stool in the colon and rectum. The small bowel loops are normal in caliber. No free intraperitoneal air BONES: Normal. OTHER FINDINGS: None. IMPRESSION: Severe constipation. Nonobstructive bowel gas pattern.
--- NOTE | 2018-02-14 09:50 | CP.PCM.CON ---
History of Present Illness - History of Present Illness History of Present Illness: CC: Preop Clearence HPI: 52 year old man with post obstructive renal failure, with hydronephrosis. He is scheduled for cystoscopy to relieve renal failure. 1. HIV chronic on HAART 2. CVA chronic with dysarthria 3. ARF post obstructive Review of Systems - Review of Systems All systems: reviewed and no additional remarkable complaints except Review of Systems: + Weakness Past Patient History - Past Medical History & Family History Past Medical History?: Yes - Past Social History Smoking Status: Heavy Smoker > 10 Cigarettes Daily Home Situation {Lives}: [facility] - CARDIAC Hx Cardiac Disorders: No - PULMONARY Hx Respiratory Disorders: No - NEUROLOGICAL HX Cerebrovascular Accident: Yes (left side weakness) - HEENT Hx HEENT Problems: No - RENAL Hx Chronic Kidney Disease: No - ENDOCRINE/METABOLIC Hx Endocrine Disorders: No - HEMATOLOGICAL/ONCOLOGICAL Hx Human Immunodeficiency Virus (HIV): Yes - INTEGUMENTARY Hx Dermatological Problems: No - MUSCULOSKELETAL/RHEUMATOLOGICAL Hx Musculoskeletal Disorders: Yes Hx Falls: Yes Hx Fractures: Yes Hx Unsteady Gait: Yes - GASTROINTESTINAL Hx Gastrointestinal Disorders: No - GENITOURINARY/GYNECOLOGICAL Hx Genitourinary Disorders: No - PSYCHIATRIC Hx Schizophrenia: Yes Hx Substance Use: No - SURGICAL HISTORY Hx Surgeries: No - ANESTHESIA Hx Anesthesia: Yes Hx Anesthesia Reactions: No Meds Allergies/Adverse Reactions: Allergies Allergy/AdvReac Type Severity Reaction Status Date / Time No Known Allergies Allergy Unverified 02/07/18 17:47 - Medications Medications: Current Medications Calcium Acetate (Phoslo) 667 mg PO TID [facility] Last Admin: 02/13/18 17:40 Dose: 667 mg Docusate Sodium (Colace) 100 mg PO BID [facility] Last Admin: 02/13/18 17:40 Dose: 100 mg Heparin Sodium (Porcine) (Heparin) 5,000 units SC Q12 [facility] Last Admin: 02/13/18 21:20 Dose: Not Given Home Med (Patient's Own Medication) 1 tab PO BID [facility] Last Admin: 02/13/18 17:41 Dose: 1 tab Home Med (Patient's Own Medication) 1 tab PO Q2D [facility] Last Admin: 02/13/18 10:54 Dose: Not Given Sodium Bicarbonate 75 meq/ (Dextrose/Sodium Chloride) 1,075 mls @ 100 mls/hr IV .[id number] [facility] Last Admin: 02/14/18 00:00 Dose: Not Given Metronidazole (Flagyl) 250 mg in 50 mls @ 100 mls/hr IVPB Q8H [facility] PRN Reason: Protocol Stop: 02/16/18 12:01 Last Admin: 02/14/18 04:02 Dose: 100 mls/hr Ceftriaxone Sodium 1 gm/ (Sodium Chloride) 100 mls @ 100 mls/hr IVPB DAILY [facility] PRN Reason: Protocol Last Admin: 02/13/18 10:54 Dose: 100 mls/hr Sodium Chloride (Sodium Chloride 0.9%) 1,000 mls @ 50 mls/hr IV .Q20H [facility] Last Admin: 02/13/18 14:17 Dose: Not Given Lamivudine (Epivir) 50 mg PO Q24H [facility] PRN Reason: Protocol Last Admin: 02/13/18 17:40 Dose: 50 mg Leucovorin Calcium (Leucovorin) 10 mg PO DAILY [facility] Last Admin: 02/13/18 10:54 Dose: Not Given Magnesium Hydroxide (Milk Of Magnesia) 30 ml PO HS [facility] Last Admin: 02/13/18 21:27 Dose: 30 ml Mirtazapine (Remeron) 15 mg PO HS [facility] Last Admin: 02/13/18 21:29 Dose: 15 mg Olanzapine (Zyprexa) 15 mg PO HS [facility] Last Admin: 02/13/18 21:30 Dose: 15 mg Pantoprazole Sodium (Protonix Inj) 40 mg IVP DAILY [facility] Last Admin: 02/13/18 10:55 Dose: 40 mg Raltegravir (Isentress) 400 mg PO BID [facility] PRN Reason: Protocol Last Admin: 02/13/18 17:41 Dose: 400 mg Tenofovir Disoproxil Fumarate (Viread) 300 mg PO Q7D [facility] PRN Reason: Protocol Last Admin: 02/09/18 16:00 Dose: 300 mg Topiramate (Topamax) 25 mg PO DAILY [facility] Last Admin: 02/13/18 10:54 Dose: Not Given Vitamin B Complex/Vitamin C (Berocca) 1 tab PO DAILY [facility] Last Admin: 02/13/18 10:53 Dose: Not Given Physical Exam - Constitutional Appears: Cachectic, Chronically Ill - Eye Exam Eye Exam: absent: PERRL, Scleral icterus - ENT Exam ENT Exam: Mucous Membranes Dry Additional comments: Dysarthria - Neck Exam Neck exam: Negative for: Lymphadenopathy, Thyromegaly - Respiratory Exam Respiratory Exam: Rhonchi, NORMAL BREATHING PATTERN - Cardiovascular Exam Cardiovascular Exam: REGULAR RHYTHM, RRR, +S1, +S2. absent: JVD - GI/Abdominal Exam GI & Abdominal Exam: Normal Bowel Sounds. absent: Organomegaly - Extremities Exam Extremities exam: Positive for: pedal pulses present. Negative for: pedal edema - Neurological Exam Neurological exam: Oriented x3 Additional comments: Facial weakness - Psychiatric Exam Psychiatric exam: Depressed, Flat Affect Results - Vital Signs Recent Vital Signs: Last Vital Signs Temp 98.5 F 02/14/18 08:21 Pulse 81 02/14/18 08:21 Resp 20 02/14/18 08:21 BP 136/83 02/14/18 08:21 Pulse Ox 95 02/14/18 08:21 - Labs Result Diagrams: 02/13/18 06:43 02/14/18 08:34 Labs: Laboratory Results - last 24 hr 02/11/18 02/12/18 02/14/18 17:23 07:23 08:34 Sodium 147 Potassium 4.2 Chloride 117 H Carbon Dioxide 20 L Anion Gap 14 BUN 56 H Creatinine 4.8 H Est GFR ( Amer) 15 Est GFR (Non-Af Amer) 13 Random Glucose 92 Calcium 8.5 L Total Bilirubin 0.2 AST 72 H ALT 67 Alkaline Phosphatase 86 Total Protein 5.9 L Albumin 2.8 L Globulin 3.1 Albumin/Globulin Ratio 0.9 L PTH Intact Whole Molec 112 H HIV-1 RNA Qnt (RT-PCR) <1.30 not detected - EKG Data EKG Interpreted by: Myself EKG shows normal: Sinus rhythm Assessment & Plan - Assessment and Plan (Free Text) Assessment: 52 year old man with AIDS on HAART, acute renal failure due to hydronephrosis. HE IS ACCEPTABLE RISK FOR URGENT PROCEDURE. HE DOES NOT REQUIRE ANY FURTHER CARDIAC WORK UP AT THIS TIME.
[2018-02-14] MEDS: Sodium Bicarbonate 8.4% 75 MEQ in Dextrose 5%/0.45% NS 1,000 ML IV SCH ×3 (11:04→21:02)
[2018-02-14] MEDS: Sodium Chloride 0.9% 1,000 ML IV SCH (11:05)
[2018-02-14] MEDS: INTELENCE 200 MG PO SCH ×2 (11:05→18:08)
[2018-02-14] MEDS: Vitamin B Complex/Vitamin C Tab PO SCH (11:06)
--- NOTE | 2018-02-14 11:10 | CP.PCM.PCO ---
Physician Communication Note - Physician Communication Note Physician Communication Note: medically cleared fro cysto as per Dr. Garibay
--- NOTE | 2018-02-14 13:27 | CP.PCM.PN ---
Subjective - Date & Time of Evaluation Date of Evaluation: 02/14/18 Time of Evaluation: 13:25 - Subjective Subjective: s/p cysto; ? stent placement Now with increased UO Creat better-4.8 Maintained on bicarb gtt Awake- appears same as before Objective - Vital Signs/Intake and Output Vital Signs (last 24 hours): Temp Pulse Resp BP Pulse Ox 98.5 F 81 20 136/83 95 02/14/18 08:21 02/14/18 08:21 02/14/18 08:21 02/14/18 08:21 02/14/18 08:21 Intake and Output: 02/14/18 02/14/18 06:59 18:59 Intake Total 1250 Output Total 1900 Balance -650 - Medications Medications: Current Medications Calcium Acetate (Phoslo) 667 mg PO TID [facility] Last Admin: 02/14/18 11:04 Dose: Not Given Docusate Sodium (Colace) 100 mg PO BID [facility] Last Admin: 02/14/18 11:06 Dose: Not Given Home Med (Patient's Own Medication) 1 tab PO BID [facility] Last Admin: 02/14/18 11:05 Dose: Not Given Home Med (Patient's Own Medication) 1 tab PO Q2D [facility] Last Admin: 02/13/18 10:54 Dose: Not Given Sodium Bicarbonate 75 meq/ (Dextrose/Sodium Chloride) 1,075 mls @ 100 mls/hr IV .[id number] [facility] Last Admin: 02/14/18 11:04 Dose: Not Given Metronidazole (Flagyl) 250 mg in 50 mls @ 100 mls/hr IVPB Q8H [facility] PRN Reason: Protocol Stop: 02/16/18 12:01 Last Admin: 02/14/18 04:02 Dose: 100 mls/hr Ceftriaxone Sodium 1 gm/ (Sodium Chloride) 100 mls @ 100 mls/hr IVPB DAILY [facility] PRN Reason: Protocol Last Admin: 02/14/18 11:03 Dose: 100 mls/hr Sodium Chloride (Sodium Chloride 0.9%) 1,000 mls @ 50 mls/hr IV .Q20H [facility] Last Admin: 02/14/18 11:05 Dose: Not Given Lamivudine (Epivir) 50 mg PO Q24H [facility] PRN Reason: Protocol Last Admin: 02/13/18 17:40 Dose: 50 mg Leucovorin Calcium (Leucovorin) 10 mg PO DAILY [facility] Last Admin: 02/14/18 11:05 Dose: Not Given Magnesium Hydroxide (Milk Of Magnesia) 30 ml PO HS [facility] Last Admin: 02/13/18 21:27 Dose: 30 ml Mirtazapine (Remeron) 15 mg PO HS [facility] Last Admin: 02/13/18 21:29 Dose: 15 mg Olanzapine (Zyprexa) 15 mg PO HS [facility] Last Admin: 02/13/18 21:30 Dose: 15 mg Pantoprazole Sodium (Protonix Inj) 40 mg IVP DAILY [facility] Last Admin: 02/14/18 11:04 Dose: Not Given Raltegravir (Isentress) 400 mg PO BID [facility] PRN Reason: Protocol Last Admin: 02/14/18 11:05 Dose: Not Given Tenofovir Disoproxil Fumarate (Viread) 300 mg PO Q7D [facility] PRN Reason: Protocol Last Admin: 02/09/18 16:00 Dose: 300 mg Topiramate (Topamax) 25 mg PO DAILY [facility] Last Admin: 02/14/18 11:05 Dose: Not Given Vitamin B Complex/Vitamin C (Berocca) 1 tab PO DAILY [facility] Last Admin: 02/14/18 11:06 Dose: Not Given - Labs Labs: 02/13/18 06:43 02/14/18 08:34 PT 12.6 SECONDS (9.7-12.2) H 02/13/18 06:43 INR 1.2 02/13/18 06:43 - Constitutional Appears: No Acute Distress, Confused, Cachectic, Chronically Ill - Head Exam Head Exam: ATRAUMATIC, NORMAL INSPECTION - Eye Exam Eye Exam: EOMI, Normal appearance - Neck Exam Neck Exam: Normal Inspection. absent: Tenderness - Respiratory Exam Respiratory Exam: Clear to Ausculation Bilateral, NORMAL BREATHING PATTERN - Cardiovascular Exam Cardiovascular Exam: REGULAR RHYTHM, +S1 - GI/Abdominal Exam GI & Abdominal Exam: Soft. absent: Tenderness - Extremities Exam Extremities Exam: Normal Inspection. absent: Tenderness - Neurological Exam Neurological Exam: Altered - Skin Skin Exam: Dry, Warm Assessment and Plan (1) NIURKA (acute kidney injury) Status: Acute (2) HIV (human immunodeficiency virus infection) Status: Acute (3) CVA (cerebral vascular accident) Status: Acute (4) Metabolic acidosis Status: Acute (5) CKD (chronic kidney disease) stage 5, GFR less than 15 ml/min Status: Acute - Assessment and Plan (Free Text) Plan: Continue IV fluids Repeat chemistries Follow UO, rx
[2018-02-14] MEDS ORDERED: Iohexol 240 (50 ml) ONE (13:50)
[2018-02-14] MEDS ORDERED: Propofol 10 mg/ml Inj (20 ML) ONE (13:56)
--- NOTE | 2018-02-14 14:27 | PCM.SURG1 ---
Surgeon's Initial Post Op Note - Surgeon's Notes Surgeon: Georges Dice Manager: NADINE Type of Anesthesia: General LMA Anesthesia Administered By: Staff Pre-Operative Diagnosis: Left ureteral calculi/[place] Operative Findings: same Post-Operative Diagnosis: same Operation Performed: Cysto insert jj stent Specimen/Specimens Removed: na Estimated Blood Loss: EBL {In ML}: 0 Blood Products Given: N/A Drains Used: No Drains Post-Op Condition: Good Date of Surgery/Procedure: 02/14/18 Time of Surgery/Procedure: 14:26 (stent must be removed or changed within 2 mos)
--- NOTE | 2018-02-14 15:38 | CP.PCM.PN ---
Subjective - Date & Time of Evaluation Date of Evaluation: 02/14/18 Time of Evaluation: 07:45 - Subjective Subjective: clinically same Objective - Vital Signs/Intake and Output Vital Signs (last 24 hours): Temp Pulse Resp BP Pulse Ox 97.8 F 76 14 140/85 99 02/14/18 15:30 02/14/18 15:30 02/14/18 15:30 02/14/18 15:30 02/14/18 15:30 Intake and Output: 02/14/18 02/14/18 06:59 18:59 Intake Total 1250 100 Output Total 1900 100 Balance -650 0 - Medications Medications: Current Medications Calcium Acetate (Phoslo) 667 mg PO TID [facility] Last Admin: 02/14/18 13:55 Dose: Not Given Docusate Sodium (Colace) 100 mg PO BID [facility] Last Admin: 02/14/18 11:06 Dose: Not Given Home Med (Patient's Own Medication) 1 tab PO BID [facility] Last Admin: 02/14/18 11:05 Dose: Not Given Home Med (Patient's Own Medication) 1 tab PO Q2D [facility] Last Admin: 02/13/18 10:54 Dose: Not Given Sodium Bicarbonate 75 meq/ (Dextrose/Sodium Chloride) 1,075 mls @ 100 mls/hr IV .[id number] [facility] Last Admin: 02/14/18 11:04 Dose: Not Given Metronidazole (Flagyl) 250 mg in 50 mls @ 100 mls/hr IVPB Q8H [facility] PRN Reason: Protocol Stop: 02/16/18 12:01 Last Admin: 02/14/18 12:00 Dose: 100 mls/hr Ceftriaxone Sodium 1 gm/ (Sodium Chloride) 100 mls @ 100 mls/hr IVPB DAILY [facility] PRN Reason: Protocol Last Admin: 02/14/18 11:03 Dose: 100 mls/hr Sodium Chloride (Sodium Chloride 0.9%) 1,000 mls @ 50 mls/hr IV .Q20H [facility] Last Admin: 02/14/18 11:05 Dose: Not Given Lamivudine (Epivir) 50 mg PO Q24H [facility] PRN Reason: Protocol Last Admin: 02/13/18 17:40 Dose: 50 mg Leucovorin Calcium (Leucovorin) 10 mg PO DAILY [facility] Last Admin: 02/14/18 11:05 Dose: Not Given Magnesium Hydroxide (Milk Of Magnesia) 30 ml PO HS [facility] Last Admin: 02/13/18 21:27 Dose: 30 ml Mirtazapine (Remeron) 15 mg PO HS [facility] Last Admin: 02/13/18 21:29 Dose: 15 mg Olanzapine (Zyprexa) 15 mg PO HS [facility] Last Admin: 02/13/18 21:30 Dose: 15 mg Pantoprazole Sodium (Protonix Inj) 40 mg IVP DAILY [facility] Last Admin: 02/14/18 11:04 Dose: Not Given Raltegravir (Isentress) 400 mg PO BID [facility] PRN Reason: Protocol Last Admin: 02/14/18 11:05 Dose: Not Given Tenofovir Disoproxil Fumarate (Viread) 300 mg PO Q7D [facility] PRN Reason: Protocol Last Admin: 02/09/18 16:00 Dose: 300 mg Topiramate (Topamax) 25 mg PO DAILY [facility] Last Admin: 02/14/18 11:05 Dose: Not Given Vitamin B Complex/Vitamin C (Berocca) 1 tab PO DAILY [facility] Last Admin: 02/14/18 11:06 Dose: Not Given - Labs Labs: 02/13/18 06:43 02/14/18 08:34 PT 12.6 SECONDS (9.7-12.2) H 02/13/18 06:43 INR 1.2 02/13/18 06:43
--- NOTE | 2018-02-14 15:39 | RAD ---
Date of service: 02/14/2018 HISTORY: LEFT URETERAL STONE COMPARISON: CT abdomen and pelvis from 02/10/2018. FINDINGS: There is redemonstration of a 2.3 cm left ureteral stone at the level of L3. BOWEL: There is large amount of stool in the colon and rectum. There is mild gaseous distension of the small bowel. BONES: Left femoral dynamic rods. Otherwise the bones are within normal limits. OTHER FINDINGS: None. IMPRESSION: 2.3 cm left ureteral stone at the level of L3. Severe constipation and fecal impaction in the rectum.
--- NOTE | 2018-02-14 17:54 | RAD ---
Date of service: 02/14/2018 PROCEDURE: Intraoperative Fluoroscopy. HISTORY: LEFT URETERAL STONE FINDINGS: Fluoroscopic assistance was provided for cystogram and stent placement. Please refer to the operative report from [facility]. Total fluoroscopic time (continuous mode) utilized during the procedure 10.0 (seconds). Total exam DLP: 1.70 (mGy).
[2018-02-14] MEDS: LamiVUDine 10 mg/ml Syringe PO SCH (18:08)
--- NOTE | 2018-02-14 18:40 | CP.PCM.PN ---
Subjective - Date & Time of Evaluation Date of Evaluation: 02/14/18 Time of Evaluation: 08:00 - Subjective Subjective: s/p stent for hydro improving Objective - Vital Signs/Intake and Output Vital Signs (last 24 hours): Temp Pulse Resp BP Pulse Ox 97.8 F 76 14 140/85 99 02/14/18 15:30 02/14/18 15:30 02/14/18 15:30 02/14/18 15:30 02/14/18 15:30 Intake and Output: 02/14/18 02/14/18 06:59 18:59 Intake Total 1250 200 Output Total 1900 200 Balance -650 0 - Medications Medications: Current Medications Calcium Acetate (Phoslo) 667 mg PO TID [facility] Last Admin: 02/14/18 18:07 Dose: 667 mg Docusate Sodium (Colace) 100 mg PO BID [facility] Last Admin: 02/14/18 18:07 Dose: 100 mg Home Med (Patient's Own Medication) 1 tab PO BID [facility] Last Admin: 02/14/18 18:08 Dose: 1 tab Home Med (Patient's Own Medication) 1 tab PO Q2D [facility] Last Admin: 02/13/18 10:54 Dose: Not Given Sodium Bicarbonate 75 meq/ (Dextrose/Sodium Chloride) 1,075 mls @ 100 mls/hr IV .[id number] [facility] Last Admin: 02/14/18 11:04 Dose: Not Given Metronidazole (Flagyl) 250 mg in 50 mls @ 100 mls/hr IVPB Q8H [facility] PRN Reason: Protocol Stop: 02/16/18 12:01 Last Admin: 02/14/18 12:00 Dose: 100 mls/hr Ceftriaxone Sodium 1 gm/ (Sodium Chloride) 100 mls @ 100 mls/hr IVPB DAILY [facility] PRN Reason: Protocol Last Admin: 02/14/18 11:03 Dose: 100 mls/hr Sodium Chloride (Sodium Chloride 0.9%) 1,000 mls @ 50 mls/hr IV .Q20H [facility] Last Admin: 02/14/18 11:05 Dose: Not Given Lamivudine (Epivir) 50 mg PO Q24H [facility] PRN Reason: Protocol Last Admin: 02/14/18 18:08 Dose: 50 mg Leucovorin Calcium (Leucovorin) 10 mg PO DAILY [facility] Last Admin: 02/14/18 11:05 Dose: Not Given Magnesium Hydroxide (Milk Of Magnesia) 30 ml PO HS [facility] Last Admin: 02/13/18 21:27 Dose: 30 ml Mirtazapine (Remeron) 15 mg PO HS [facility] Last Admin: 02/13/18 21:29 Dose: 15 mg Olanzapine (Zyprexa) 15 mg PO HS [facility] Last Admin: 02/13/18 21:30 Dose: 15 mg Pantoprazole Sodium (Protonix Inj) 40 mg IVP DAILY [facility] Last Admin: 02/14/18 11:04 Dose: Not Given Raltegravir (Isentress) 400 mg PO BID [facility] PRN Reason: Protocol Last Admin: 02/14/18 18:08 Dose: 400 mg Tenofovir Disoproxil Fumarate (Viread) 300 mg PO Q7D [facility] PRN Reason: Protocol Last Admin: 02/09/18 16:00 Dose: 300 mg Topiramate (Topamax) 25 mg PO DAILY [facility] Last Admin: 02/14/18 11:05 Dose: Not Given Vitamin B Complex/Vitamin C (Berocca) 1 tab PO DAILY [facility] Last Admin: 02/14/18 11:06 Dose: Not Given - Labs Labs: 02/13/18 06:43 02/14/18 08:34 PT 12.6 SECONDS (9.7-12.2) H 02/13/18 06:43 INR 1.2 02/13/18 06:43 - Constitutional Appears: Non-toxic, Chronically Ill - Head Exam Head Exam: NORMOCEPHALIC - Eye Exam Eye Exam: PERRL - ENT Exam ENT Exam: Mucous Membranes Dry - Neck Exam Neck Exam: absent: Lymphadenopathy - Respiratory Exam Respiratory Exam: Decreased Breath Sounds - Cardiovascular Exam Cardiovascular Exam: REGULAR RHYTHM - GI/Abdominal Exam GI & Abdominal Exam: Distended, Soft Assessment and Plan (1) NIURKA (acute kidney injury) Status: Acute (2) CVA (cerebral vascular accident) Status: Acute (3) HIV (human immunodeficiency virus infection) Status: Acute - Assessment and Plan (Free Text) Assessment: rx renewed
[2018-02-14] MEDS: Magnesium Hydroxide Susp 30 ml UD PO SCH (21:35)
[2018-02-15 01:14] VITALS: RESP 20
[2018-02-15] MEDS: metroNIDAZOLE IV 250mg/50 ml 250 MG/50 ML BAG IVPB SCH ×3 (03:58→21:01)
[2018-02-15] MEDS: Sodium Chloride 0.9% 1,000 ML IV SCH (05:15)
[2018-02-15] MEDS: Sodium Bicarbonate 8.4% 75 MEQ in Dextrose 5%/0.45% NS 1,000 ML IV SCH ×3 (06:17→22:47)
[2018-02-15 07:16] LABS: ALB/GLOB RATIO 0.9 (1.0-2.1); ALBUMIN 2.8 g/dL (3.5-5.0); CALCIUM 8.6 mg/dl (8.6-10.4)
--- NOTE | 2018-02-15 08:39 | CP.PCM.PN ---
Subjective - Date & Time of Evaluation Date of Evaluation: 02/15/18 Time of Evaluation: 08:37 - Subjective Subjective: F/u poor po Reports CONSTIPATION. dENIES RB, melena, fever, chills, SZ, LOC , RIBERA cough HAd ureteral stent placed yest Eating soft diet Objective - Vital Signs/Intake and Output Vital Signs (last 24 hours): Temp Pulse Resp BP Pulse Ox 97.9 F 85 20 112/76 99 02/15/18 08:08 02/15/18 08:08 02/15/18 08:08 02/15/18 08:08 02/15/18 08:08 Intake and Output: 02/15/18 02/15/18 06:59 18:59 Intake Total 2080 Output Total 2300 Balance -220 - Medications Medications: Current Medications Calcium Acetate (Phoslo) 667 mg PO TID [facility] Last Admin: 02/14/18 18:07 Dose: 667 mg Docusate Sodium (Colace) 100 mg PO BID [facility] Last Admin: 02/14/18 18:07 Dose: 100 mg Home Med (Patient's Own Medication) 1 tab PO BID [facility] Last Admin: 02/14/18 18:08 Dose: 1 tab Home Med (Patient's Own Medication) 1 tab PO Q2D [facility] Last Admin: 02/13/18 10:54 Dose: Not Given Sodium Bicarbonate 75 meq/ (Dextrose/Sodium Chloride) 1,075 mls @ 100 mls/hr IV .[id number] [facility] Last Admin: 02/15/18 07:47 Dose: Not Given Metronidazole (Flagyl) 250 mg in 50 mls @ 100 mls/hr IVPB Q8H [facility] PRN Reason: Protocol Stop: 02/16/18 12:01 Last Admin: 02/15/18 03:58 Dose: 100 mls/hr Ceftriaxone Sodium 1 gm/ (Sodium Chloride) 100 mls @ 100 mls/hr IVPB DAILY [facility] PRN Reason: Protocol Last Admin: 02/14/18 11:03 Dose: 100 mls/hr Sodium Chloride (Sodium Chloride 0.9%) 1,000 mls @ 50 mls/hr IV .Q20H [facility] Last Admin: 02/15/18 05:15 Dose: Not Given Lamivudine (Epivir) 50 mg PO Q24H [facility] PRN Reason: Protocol Last Admin: 02/14/18 18:08 Dose: 50 mg Leucovorin Calcium (Leucovorin) 10 mg PO DAILY [facility] Last Admin: 02/14/18 11:05 Dose: Not Given Magnesium Hydroxide (Milk Of Magnesia) 30 ml PO HS [facility] Last Admin: 02/14/18 21:35 Dose: 30 ml Mirtazapine (Remeron) 15 mg PO HS [facility] Last Admin: 02/14/18 21:35 Dose: 15 mg Olanzapine (Zyprexa) 15 mg PO HS [facility] Last Admin: 02/14/18 21:35 Dose: 15 mg Pantoprazole Sodium (Protonix Inj) 40 mg IVP DAILY [facility] Last Admin: 02/14/18 11:04 Dose: Not Given Raltegravir (Isentress) 400 mg PO BID [facility] PRN Reason: Protocol Last Admin: 02/14/18 18:08 Dose: 400 mg Tenofovir Disoproxil Fumarate (Viread) 300 mg PO Q7D [facility] PRN Reason: Protocol Last Admin: 02/09/18 16:00 Dose: 300 mg Topiramate (Topamax) 25 mg PO DAILY [facility] Last Admin: 02/14/18 11:05 Dose: Not Given Vitamin B Complex/Vitamin C (Berocca) 1 tab PO DAILY [facility] Last Admin: 02/14/18 11:06 Dose: Not Given - Labs Labs: 02/13/18 06:43 02/15/18 06:29 PT 12.6 SECONDS (9.7-12.2) H 02/13/18 06:43 INR 1.2 02/13/18 06:43 - Constitutional Appears: Well - Respiratory Exam Respiratory Exam: Clear to Ausculation Bilateral - Cardiovascular Exam Cardiovascular Exam: RRR - GI/Abdominal Exam GI & Abdominal Exam: Soft, Normal Bowel Sounds. absent: Tenderness, Mass, Rebound Additional comments: Protuberant - Extremities Exam Extremities Exam: absent: Calf Tenderness - Neurological Exam Neurological Exam: Alert, Awake, Oriented x3 Assessment and Plan (1) Esophagitis Assessment & Plan: Seen at EGD Status: Acute (2) Hiatal hernia Status: Acute (3) NIURKA (acute kidney injury) Assessment & Plan: ureteral stone. s/p stent Status: Acute (4) CVA (cerebral vascular accident) Status: Acute (5) Dysphagia Assessment & Plan: Seems like able to swallow. po intake afffected by ARF and constipation Status: Acute (6) HIV (human immunodeficiency virus infection) Status: Acute (7) Constipation Assessment & Plan: seen on CT and KUB. Rx with meds Status: Acute
[2018-02-15] MEDS: Vitamin B Complex/Vitamin C Tab PO SCH (10:07)
[2018-02-15] MEDS: ENTECAVIR 1 MG PO SCH ×2 (10:10→10:31)
[2018-02-15] MEDS: INTELENCE 200 MG PO SCH ×3 (10:10→19:20)
--- NOTE | 2018-02-15 11:43 | CP.PCM.PN ---
Subjective - Date & Time of Evaluation Date of Evaluation: 02/15/18 Time of Evaluation: 11:41 - Subjective Subjective: on ivf with hco3 labs reviewed confused unable to obtain ROS Objective - Vital Signs/Intake and Output Vital Signs (last 24 hours): Temp Pulse Resp BP Pulse Ox 97.9 F 85 20 112/76 99 02/15/18 08:08 02/15/18 08:08 02/15/18 08:08 02/15/18 08:08 02/15/18 08:08 Intake and Output: 02/15/18 02/15/18 06:59 18:59 Intake Total 2080 Output Total 2300 Balance -220 - Medications Medications: Current Medications Calcium Acetate (Phoslo) 667 mg PO TID [facility] Last Admin: 02/15/18 10:07 Dose: 667 mg Docusate Sodium (Colace) 100 mg PO BID [facility] Last Admin: 02/15/18 10:07 Dose: 100 mg Home Med (Patient's Own Medication) 1 tab PO BID [facility] Last Admin: 02/15/18 10:31 Dose: 1 tab Home Med (Patient's Own Medication) 1 tab PO Q2D [facility] Last Admin: 02/15/18 10:31 Dose: 1 tab Sodium Bicarbonate 75 meq/ (Dextrose/Sodium Chloride) 1,075 mls @ 100 mls/hr IV .[id number] [facility] Last Admin: 02/15/18 07:47 Dose: Not Given Metronidazole (Flagyl) 250 mg in 50 mls @ 100 mls/hr IVPB Q8H [facility] PRN Reason: Protocol Stop: 02/16/18 12:01 Last Admin: 02/15/18 03:58 Dose: 100 mls/hr Ceftriaxone Sodium 1 gm/ (Sodium Chloride) 100 mls @ 100 mls/hr IVPB DAILY [facility] PRN Reason: Protocol Last Admin: 02/15/18 10:08 Dose: 100 mls/hr Sodium Chloride (Sodium Chloride 0.9%) 1,000 mls @ 50 mls/hr IV .Q20H [facility] Last Admin: 02/15/18 05:15 Dose: Not Given Lactulose (Enulose) 20 gm PO HS [facility] Lamivudine (Epivir) 50 mg PO Q24H [facility] PRN Reason: Protocol Last Admin: 02/14/18 18:08 Dose: 50 mg Leucovorin Calcium (Leucovorin) 10 mg PO DAILY [facility] Last Admin: 02/15/18 10:07 Dose: 10 mg Magnesium Hydroxide (Milk Of Magnesia) 30 ml PO HS [facility] Last Admin: 02/14/18 21:35 Dose: 30 ml Mirtazapine (Remeron) 15 mg PO HS [facility] Last Admin: 02/14/18 21:35 Dose: 15 mg Olanzapine (Zyprexa) 15 mg PO HS [facility] Last Admin: 02/14/18 21:35 Dose: 15 mg Pantoprazole Sodium (Protonix Inj) 40 mg IVP DAILY [facility] Last Admin: 02/15/18 10:08 Dose: 40 mg Polyethylene Glycol (Miralax) 17 gm PO QNOON [facility] Raltegravir (Isentress) 400 mg PO BID [facility] PRN Reason: Protocol Last Admin: 02/15/18 10:07 Dose: 400 mg Tenofovir Disoproxil Fumarate (Viread) 300 mg PO Q7D [facility] PRN Reason: Protocol Last Admin: 02/09/18 16:00 Dose: 300 mg Topiramate (Topamax) 25 mg PO DAILY [facility] Last Admin: 02/15/18 10:07 Dose: 25 mg Vitamin B Complex/Vitamin C (Berocca) 1 tab PO DAILY [facility] Last Admin: 02/15/18 10:07 Dose: 1 tab - Labs Labs: 02/13/18 06:43 02/15/18 06:29 PT 12.6 SECONDS (9.7-12.2) H 02/13/18 06:43 INR 1.2 02/13/18 06:43 - Constitutional Appears: Confused, Chronically Ill - Head Exam Head Exam: ATRAUMATIC, NORMAL INSPECTION - Eye Exam Eye Exam: EOMI - Neck Exam Neck Exam: Full ROM. absent: Lymphadenopathy - Respiratory Exam Respiratory Exam: Decreased Breath Sounds - Cardiovascular Exam Cardiovascular Exam: REGULAR RHYTHM. absent: Rubs - GI/Abdominal Exam GI & Abdominal Exam: Distended. absent: Tenderness - Extremities Exam Extremities Exam: Pedal Edema Assessment and Plan - Assessment and Plan (Free Text) Assessment: obstructive uropathy, stone NIURKA improving post stent continue ivf with hco3 daily labs
[2018-02-15] MEDS: POLYETHYLENE GLYCOL 3350 17 GM/Dose PACKET PO SCH (12:25)
--- NOTE | 2018-02-15 14:03 | CP.PCM.PN ---
Subjective - Date & Time of Evaluation Date of Evaluation: 02/15/18 Time of Evaluation: 14:16 - Subjective Subjective: Patient s/p post urology procedure Operation Performed: Cysto insert jj stent Specimen/Specimens Removed: na Estimated Blood Loss: EBL {In ML}: 0 Blood Products Given: N/A Drains Used: No Drains Post-Op Condition: Good Date of Surgery/Procedure: 02/14/18 Time of Surgery/Procedure: 14:26 (stent must be removed or changed within 2 mos) HPI: 52 year old man with post obstructive renal failure, with hydronephrosis. He is scheduled for cystoscopy to relieve renal failure. 1. HIV chronic on HAART 2. CVA chronic with dysarthria 3. ARF post obstructive No new complaints Objective - Vital Signs/Intake and Output Vital Signs (last 24 hours): Temp Pulse Resp BP Pulse Ox 97.9 F 85 20 112/76 99 02/15/18 08:08 02/15/18 08:08 02/15/18 08:08 02/15/18 08:08 02/15/18 08:08 Intake and Output: 02/15/18 02/15/18 06:59 18:59 Intake Total 2080 Output Total 2300 Balance -220 - Medications Medications: Current Medications Calcium Acetate (Phoslo) 667 mg PO TID [facility] Last Admin: 02/15/18 13:03 Dose: 667 mg Docusate Sodium (Colace) 100 mg PO BID [facility] Last Admin: 02/15/18 10:07 Dose: 100 mg Home Med (Patient's Own Medication) 1 tab PO BID [facility] Last Admin: 02/15/18 10:31 Dose: 1 tab Home Med (Patient's Own Medication) 1 tab PO Q2D [facility] Last Admin: 02/15/18 10:31 Dose: 1 tab Sodium Bicarbonate 75 meq/ (Dextrose/Sodium Chloride) 1,075 mls @ 100 mls/hr IV .[id number] [facility] Last Admin: 02/15/18 07:47 Dose: Not Given Metronidazole (Flagyl) 250 mg in 50 mls @ 100 mls/hr IVPB Q8H [facility] PRN Reason: Protocol Stop: 02/16/18 12:01 Last Admin: 02/15/18 12:14 Dose: 100 mls/hr Ceftriaxone Sodium 1 gm/ (Sodium Chloride) 100 mls @ 100 mls/hr IVPB DAILY [facility] PRN Reason: Protocol Last Admin: 02/15/18 10:08 Dose: 100 mls/hr Sodium Chloride (Sodium Chloride 0.9%) 1,000 mls @ 50 mls/hr IV .Q20H [facility] Last Admin: 02/15/18 05:15 Dose: Not Given Lactulose (Enulose) 20 gm PO HS [facility] Lamivudine (Epivir) 50 mg PO Q24H [facility] PRN Reason: Protocol Last Admin: 02/14/18 18:08 Dose: 50 mg Leucovorin Calcium (Leucovorin) 10 mg PO DAILY [facility] Last Admin: 02/15/18 10:07 Dose: 10 mg Magnesium Hydroxide (Milk Of Magnesia) 30 ml PO HS [facility] Last Admin: 02/14/18 21:35 Dose: 30 ml Mirtazapine (Remeron) 15 mg PO HS [facility] Last Admin: 02/14/18 21:35 Dose: 15 mg Olanzapine (Zyprexa) 15 mg PO HS [facility] Last Admin: 02/14/18 21:35 Dose: 15 mg Pantoprazole Sodium (Protonix Inj) 40 mg IVP DAILY [facility] Last Admin: 02/15/18 10:08 Dose: 40 mg Polyethylene Glycol (Miralax) 17 gm PO QNOON [facility] Last Admin: 02/15/18 12:25 Dose: 17 gm Raltegravir (Isentress) 400 mg PO BID [facility] PRN Reason: Protocol Last Admin: 02/15/18 10:07 Dose: 400 mg Tenofovir Disoproxil Fumarate (Viread) 300 mg PO Q7D [facility] PRN Reason: Protocol Last Admin: 02/09/18 16:00 Dose: 300 mg Topiramate (Topamax) 25 mg PO DAILY [facility] Last Admin: 02/15/18 10:07 Dose: 25 mg Vitamin B Complex/Vitamin C (Berocca) 1 tab PO DAILY [facility] Last Admin: 02/15/18 10:07 Dose: 1 tab - Labs Labs: 02/13/18 06:43 02/15/18 06:29 PT 12.6 SECONDS (9.7-12.2) H 02/13/18 06:43 INR 1.2 02/13/18 06:43 - Constitutional Appears: Chronically Ill - Head Exam Head Exam: ATRAUMATIC, NORMAL INSPECTION, NORMOCEPHALIC - Eye Exam Eye Exam: EOMI, Normal appearance, PERRL - ENT Exam ENT Exam: Mucous Membranes Moist, Normal Oropharynx - Neck Exam Neck Exam: Full ROM, Normal Inspection - Respiratory Exam Respiratory Exam: Clear to Ausculation Bilateral. absent: Rhonchi, Wheezes - Cardiovascular Exam Cardiovascular Exam: REGULAR RHYTHM, +S1, +S2. absent: Murmur - Extremities Exam Extremities Exam: Normal Inspection. absent: Calf Tenderness, Pedal Edema - Neurological Exam Neurological Exam: Alert, Awake - Skin Skin Exam: Normal Color, Warm Assessment and Plan - Assessment and Plan (Free Text) Assessment: HIV chronic CVA Obstructive uropathy now s/p urology/cysto/stent Creat 5.3 > 4.6 improving, K+ WNL > EKG NSR > BP & HR: controlled > Afebrile > Anemia noted No perioperative evidence of cardiac complications Will sign off call if questions
--- NOTE | 2018-02-15 14:55 | CP.PCM.PN ---
Subjective - Date & Time of Evaluation Date of Evaluation: 02/15/18 Time of Evaluation: 07:30 - Subjective Subjective: clinically same Objective - Vital Signs/Intake and Output Vital Signs (last 24 hours): Temp Pulse Resp BP Pulse Ox 97.9 F 85 20 112/76 99 02/15/18 08:08 02/15/18 08:08 02/15/18 08:08 02/15/18 08:08 02/15/18 08:08 Intake and Output: 02/15/18 02/15/18 06:59 18:59 Intake Total 2080 Output Total 2300 Balance -220 - Medications Medications: Current Medications Calcium Acetate (Phoslo) 667 mg PO TID [facility] Last Admin: 02/15/18 13:03 Dose: 667 mg Docusate Sodium (Colace) 100 mg PO BID [facility] Last Admin: 02/15/18 10:07 Dose: 100 mg Home Med (Patient's Own Medication) 1 tab PO BID [facility] Last Admin: 02/15/18 10:31 Dose: 1 tab Home Med (Patient's Own Medication) 1 tab PO Q2D [facility] Last Admin: 02/15/18 10:31 Dose: 1 tab Metronidazole (Flagyl) 250 mg in 50 mls @ 100 mls/hr IVPB Q8H [facility] PRN Reason: Protocol Stop: 02/16/18 12:01 Last Admin: 02/15/18 12:14 Dose: 100 mls/hr Ceftriaxone Sodium 1 gm/ (Sodium Chloride) 100 mls @ 100 mls/hr IVPB DAILY [facility] PRN Reason: Protocol Last Admin: 02/15/18 10:08 Dose: 100 mls/hr Sodium Chloride (Sodium Chloride 0.9%) 1,000 mls @ 50 mls/hr IV .Q20H [facility] Last Admin: 02/15/18 05:15 Dose: Not Given Lactulose (Enulose) 20 gm PO [facility] Lamivudine (Epivir) 50 mg PO Q24H [facility] PRN Reason: Protocol Last Admin: 02/14/18 18:08 Dose: 50 mg Leucovorin Calcium (Leucovorin) 10 mg PO DAILY [facility] Last Admin: 02/15/18 10:07 Dose: 10 mg Magnesium Hydroxide (Milk Of Magnesia) 30 ml PO [facility] Last Admin: 02/14/18 21:35 Dose: 30 ml Mirtazapine (Remeron) 15 mg PO HS [facility] Last Admin: 02/14/18 21:35 Dose: 15 mg Olanzapine (Zyprexa) 15 mg PO HS [facility] Last Admin: 02/14/18 21:35 Dose: 15 mg Pantoprazole Sodium (Protonix Inj) 40 mg IVP DAILY [facility] Last Admin: 02/15/18 10:08 Dose: 40 mg Polyethylene Glycol (Miralax) 17 gm PO QNOON [facility] Last Admin: 02/15/18 12:25 Dose: 17 gm Raltegravir (Isentress) 400 mg PO BID [facility] PRN Reason: Protocol Last Admin: 02/15/18 10:07 Dose: 400 mg Tenofovir Disoproxil Fumarate (Viread) 300 mg PO Q7D [facility] PRN Reason: Protocol Last Admin: 02/09/18 16:00 Dose: 300 mg Topiramate (Topamax) 25 mg PO DAILY [facility] Last Admin: 02/15/18 10:07 Dose: 25 mg Vitamin B Complex/Vitamin C (Berocca) 1 tab PO DAILY [facility] Last Admin: 02/15/18 10:07 Dose: 1 tab - Labs Labs: 02/13/18 06:43 02/15/18 06:29 PT 12.6 SECONDS (9.7-12.2) H 02/13/18 06:43 INR 1.2 02/13/18 06:43 - Constitutional Appears: Well - Head Exam Head Exam: ATRAUMATIC, NORMAL INSPECTION, NORMOCEPHALIC - Eye Exam Eye Exam: EOMI, Normal appearance, PERRL Pupil Exam: NORMAL ACCOMODATION, PERRL - ENT Exam ENT Exam: Mucous Membranes Moist, Normal Exam - Neck Exam Neck Exam: Full ROM, Normal Inspection. absent: Lymphadenopathy - Respiratory Exam Respiratory Exam: Decreased Breath Sounds - Cardiovascular Exam Cardiovascular Exam: REGULAR RHYTHM, +S1, +S2 - GI/Abdominal Exam GI & Abdominal Exam: Soft, Diminished Bowel Sounds - Rectal Exam Rectal Exam: Deferred
[2018-02-15] MEDS: LamiVUDine 10 mg/ml Syringe PO SCH (19:20)
[2018-02-15] MEDS: Magnesium Hydroxide Susp 30 ml UD PO SCH (22:26)
--- NOTE | 2018-02-15 22:53 | CARD ---
APPROVED REPORT Date of service: 02/13/2018 EKG Measurement Heart [id number] <Conclusion> Normal sinus rhythm Normal ECG
[2018-02-16] MEDS: metroNIDAZOLE IV 250mg/50 ml 250 MG/50 ML BAG IVPB SCH ×2 (03:36→12:23)
[2018-02-16 09:33] LABS: ALB/GLOB RATIO 0.9 (1.0-2.1); ALBUMIN 2.9 g/dL (3.5-5.0); CALCIUM 8.7 mg/dl (8.6-10.4)
[2018-02-16] MEDS: Vitamin B Complex/Vitamin C Tab PO SCH (10:14)
[2018-02-16] MEDS: INTELENCE 200 MG PO SCH ×2 (10:16→18:00)
--- NOTE | 2018-02-16 11:07 | CP.PCM.PN ---
Subjective - Date & Time of Evaluation Date of Evaluation: 02/16/18 Time of Evaluation: 11:00 - Subjective Subjective: f/u esophagitis. Denies dysphagia, fever, chills, abdom pain, RIBERA, cough, diarrhea, RB, melena Objective - Vital Signs/Intake and Output Vital Signs (last 24 hours): Temp Pulse Resp BP Pulse Ox 97.8 F 85 20 147/88 100 02/16/18 08:00 02/16/18 08:00 02/16/18 08:00 02/16/18 08:00 02/16/18 08:00 Intake and Output: 02/16/18 02/16/18 06:59 18:59 Intake Total 2000 Output Total 2200 Balance -200 - Medications Medications: Current Medications Calcium Acetate (Phoslo) 667 mg PO TID [facility] Last Admin: 02/16/18 10:14 Dose: 667 mg Docusate Sodium (Colace) 100 mg PO BID [facility] Last Admin: 02/16/18 10:14 Dose: 100 mg Home Med (Patient's Own Medication) 1 tab PO BID [facility] Last Admin: 02/16/18 10:16 Dose: 1 tab Home Med (Patient's Own Medication) 1 tab PO Q2D [facility] Last Admin: 02/15/18 10:31 Dose: 1 tab Metronidazole (Flagyl) 250 mg in 50 mls @ 100 mls/hr IVPB Q8H [facility] PRN Reason: Protocol Stop: 02/16/18 12:01 Last Admin: 02/16/18 03:36 Dose: 100 mls/hr Ceftriaxone Sodium 1 gm/ (Sodium Chloride) 100 mls @ 100 mls/hr IVPB DAILY [facility] PRN Reason: Protocol Last Admin: 02/16/18 10:23 Dose: 100 mls/hr Sodium Chloride (Sodium Chloride 0.9%) 1,000 mls @ 50 mls/hr IV .Q20H [facility] Last Admin: 02/15/18 05:15 Dose: Not Given Sodium Bicarbonate 75 meq/ (Dextrose/Sodium Chloride) 1,075 mls @ 100 mls/hr IV .[id number] [facility] Last Admin: 02/15/18 22:47 Dose: 100 mls/hr Lactulose (Enulose) 20 gm PO HS [facility] Last Admin: 02/15/18 23:05 Dose: 20 gm Lamivudine (Epivir) 50 mg PO Q24H [facility] PRN Reason: Protocol Last Admin: 02/15/18 19:20 Dose: 50 mg Leucovorin Calcium (Leucovorin) 10 mg PO DAILY [facility] Last Admin: 02/16/18 10:32 Dose: 10 mg Magnesium Hydroxide (Milk Of Magnesia) 30 ml PO HS [facility] Last Admin: 02/15/18 22:26 Dose: 30 ml Mirtazapine (Remeron) 15 mg PO HS [facility] Last Admin: 02/15/18 22:26 Dose: 15 mg Olanzapine (Zyprexa) 15 mg PO HS [facility] Last Admin: 02/15/18 22:26 Dose: 15 mg Pantoprazole Sodium (Protonix Inj) 40 mg IVP DAILY [facility] Last Admin: 02/16/18 10:14 Dose: 40 mg Polyethylene Glycol (Miralax) 17 gm PO QNOON [facility] Last Admin: 02/15/18 12:25 Dose: 17 gm Raltegravir (Isentress) 400 mg PO BID [facility] PRN Reason: Protocol Last Admin: 02/16/18 10:14 Dose: 400 mg Tenofovir Disoproxil Fumarate (Viread) 300 mg PO Q7D [facility] PRN Reason: Protocol Last Admin: 02/09/18 16:00 Dose: 300 mg Topiramate (Topamax) 25 mg PO DAILY [facility] Last Admin: 02/15/18 10:07 Dose: 25 mg Vitamin B Complex/Vitamin C (Berocca) 1 tab PO DAILY [facility] Last Admin: 02/16/18 10:14 Dose: 1 tab - Labs Labs: 02/13/18 06:43 02/16/18 09:02 PT 12.6 SECONDS (9.7-12.2) H 02/13/18 06:43 INR 1.2 02/13/18 06:43 - Neck Exam Neck Exam: absent: Tenderness - Respiratory Exam Respiratory Exam: Clear to Ausculation Bilateral - Cardiovascular Exam Cardiovascular Exam: RRR - GI/Abdominal Exam GI & Abdominal Exam: Soft, Normal Bowel Sounds. absent: Tenderness, Rebound - Neurological Exam Neurological Exam: Alert, Oriented x3 Assessment and Plan (1) Esophagitis Status: Acute (2) Hiatal hernia Status: Acute (3) NIURKA (acute kidney injury) Status: Acute (4) CVA (cerebral vascular accident) Status: Acute (5) Dysphagia Assessment & Plan: reports eating better. Status: Acute (6) HIV (human immunodeficiency virus infection) Status: Acute (7) Constipation Assessment & Plan: continue meds. Status: Acute
[2018-02-16] MEDS: Sodium Bicarbonate 8.4% 75 MEQ in Dextrose 5%/0.45% NS 1,000 ML IV SCH ×3 (11:59→22:51)
[2018-02-16] MEDS: Sodium Chloride 0.9% 1,000 ML IV SCH (12:01)
[2018-02-16] MEDS: POLYETHYLENE GLYCOL 3350 17 GM/Dose PACKET PO SCH (12:18)
--- NOTE | 2018-02-16 13:57 | CP.PCM.PN ---
Subjective - Date & Time of Evaluation Date of Evaluation: 02/16/18 Time of Evaluation: 07:30 - Subjective Subjective: clinically same Objective - Vital Signs/Intake and Output Vital Signs (last 24 hours): Temp Pulse Resp BP Pulse Ox 97.8 F 85 20 147/88 100 02/16/18 08:00 02/16/18 08:00 02/16/18 08:00 02/16/18 08:00 02/16/18 08:00 Intake and Output: 02/16/18 02/16/18 06:59 18:59 Intake Total 2000 Output Total 2200 Balance -200 - Medications Medications: Current Medications Calcium Acetate (Phoslo) 667 mg PO TID [facility] Last Admin: 02/16/18 13:10 Dose: 667 mg Docusate Sodium (Colace) 100 mg PO BID [facility] Last Admin: 02/16/18 10:14 Dose: 100 mg Home Med (Patient's Own Medication) 1 tab PO BID [facility] Last Admin: 02/16/18 10:16 Dose: 1 tab Home Med (Patient's Own Medication) 1 tab PO Q2D [facility] Last Admin: 02/15/18 10:31 Dose: 1 tab Ceftriaxone Sodium 1 gm/ (Sodium Chloride) 100 mls @ 100 mls/hr IVPB DAILY [facility] PRN Reason: Protocol Last Admin: 02/16/18 10:23 Dose: 100 mls/hr Sodium Chloride (Sodium Chloride 0.9%) 1,000 mls @ 50 mls/hr IV .Q20H [facility] Last Admin: 02/16/18 12:01 Dose: Not Given Sodium Bicarbonate 75 meq/ (Dextrose/Sodium Chloride) 1,075 mls @ 100 mls/hr IV .[id number] [facility] Last Admin: 02/16/18 11:59 Dose: 100 mls/hr Lactulose (Enulose) 20 gm PO [facility] Last Admin: 02/15/18 23:05 Dose: 20 gm Lamivudine (Epivir) 50 mg PO Q24H [facility] PRN Reason: Protocol Last Admin: 02/15/18 19:20 Dose: 50 mg Leucovorin Calcium (Leucovorin) 10 mg PO DAILY [facility] Last Admin: 02/16/18 10:32 Dose: 10 mg Magnesium Hydroxide (Milk Of Magnesia) 30 ml PO [facility] Last Admin: 02/15/18 22:26 Dose: 30 ml Mirtazapine (Remeron) 15 mg PO HS [facility] Last Admin: 02/15/18 22:26 Dose: 15 mg Olanzapine (Zyprexa) 15 mg PO HS [facility] Last Admin: 02/15/18 22:26 Dose: 15 mg Pantoprazole Sodium (Protonix Inj) 40 mg IVP DAILY [facility] Last Admin: 02/16/18 10:14 Dose: 40 mg Polyethylene Glycol (Miralax) 17 gm PO QNOON [facility] Last Admin: 02/16/18 12:18 Dose: 17 gm Raltegravir (Isentress) 400 mg PO BID [facility] PRN Reason: Protocol Last Admin: 02/16/18 10:14 Dose: 400 mg Tenofovir Disoproxil Fumarate (Viread) 300 mg PO Q7D [facility] PRN Reason: Protocol Last Admin: 02/09/18 16:00 Dose: 300 mg Topiramate (Topamax) 25 mg PO DAILY [facility] Last Admin: 02/16/18 12:17 Dose: 25 mg Vitamin B Complex/Vitamin C (Berocca) 1 tab PO DAILY [facility] Last Admin: 02/16/18 10:14 Dose: 1 tab - Labs Labs: 02/13/18 06:43 02/16/18 09:02 PT 12.6 SECONDS (9.7-12.2) H 02/13/18 06:43 INR 1.2 02/13/18 06:43 - Constitutional Appears: Well - Head Exam Head Exam: ATRAUMATIC, NORMAL INSPECTION, NORMOCEPHALIC - Eye Exam Eye Exam: EOMI, Normal appearance, PERRL Pupil Exam: NORMAL ACCOMODATION, PERRL - ENT Exam ENT Exam: Mucous Membranes Moist, Normal Exam - Neck Exam Neck Exam: Full ROM, Normal Inspection. absent: Lymphadenopathy - Respiratory Exam Respiratory Exam: Decreased Breath Sounds - Cardiovascular Exam Cardiovascular Exam: REGULAR RHYTHM, +S1, +S2 - GI/Abdominal Exam GI & Abdominal Exam: Soft, Diminished Bowel Sounds - Rectal Exam Rectal Exam: Deferred Assessment and Plan - Assessment and Plan (Free Text) Plan: Status post cystoscopy Continue on anti-HIV medicine Continue Flagyl and Cipro Follow-up with cardiology Follow-up with GI Follow-up with the ID Follow-up with the renal Follow-up with the urology Follow-up with the surgery Septic workup IV antibiotic Discussed with the brotherLukas before
--- NOTE | 2018-02-16 15:43 | CP.PCM.PN ---
Subjective - Date & Time of Evaluation Date of Evaluation: 02/16/18 Time of Evaluation: 08:00 - Subjective Subjective: no fever renal function improving Objective - Vital Signs/Intake and Output Vital Signs (last 24 hours): Temp Pulse Resp BP Pulse Ox 97.8 F 85 20 147/88 100 02/16/18 08:00 02/16/18 08:00 02/16/18 08:00 02/16/18 08:00 02/16/18 08:00 Intake and Output: 02/16/18 02/16/18 06:59 18:59 Intake Total 2000 1300 Output Total 2200 1400 Balance -200 -100 - Medications Medications: Current Medications Calcium Acetate (Phoslo) 667 mg PO TID [facility] Last Admin: 02/16/18 13:10 Dose: 667 mg Docusate Sodium (Colace) 100 mg PO BID [facility] Last Admin: 02/16/18 10:14 Dose: 100 mg Home Med (Patient's Own Medication) 1 tab PO BID [facility] Last Admin: 02/16/18 10:16 Dose: 1 tab Home Med (Patient's Own Medication) 1 tab PO Q2D [facility] Last Admin: 02/15/18 10:31 Dose: 1 tab Sodium Bicarbonate 75 meq/ (Dextrose/Sodium Chloride) 1,075 mls @ 100 mls/hr IV .[id number] [facility] Last Admin: 02/16/18 11:59 Dose: 100 mls/hr Lactulose (Enulose) 20 gm PO HS [facility] Last Admin: 02/15/18 23:05 Dose: 20 gm Lamivudine (Epivir) 50 mg PO Q24H [facility] PRN Reason: Protocol Last Admin: 02/15/18 19:20 Dose: 50 mg Leucovorin Calcium (Leucovorin) 10 mg PO DAILY [facility] Last Admin: 02/16/18 10:32 Dose: 10 mg Magnesium Hydroxide (Milk Of Magnesia) 30 ml PO [facility] Last Admin: 02/15/18 22:26 Dose: 30 ml Mirtazapine (Remeron) 15 mg PO HS [facility] Last Admin: 02/15/18 22:26 Dose: 15 mg Olanzapine (Zyprexa) 15 mg PO HS [facility] Last Admin: 02/15/18 22:26 Dose: 15 mg Pantoprazole Sodium (Protonix Inj) 40 mg IVP DAILY [facility] Last Admin: 02/16/18 10:14 Dose: 40 mg Polyethylene Glycol (Miralax) 17 gm PO QNOON [facility] Last Admin: 02/16/18 12:18 Dose: 17 gm Raltegravir (Isentress) 400 mg PO BID [facility] PRN Reason: Protocol Last Admin: 02/16/18 10:14 Dose: 400 mg Tenofovir Disoproxil Fumarate (Viread) 300 mg PO Q7D [facility] PRN Reason: Protocol Last Admin: 02/09/18 16:00 Dose: 300 mg Topiramate (Topamax) 25 mg PO DAILY [facility] Last Admin: 02/16/18 12:17 Dose: 25 mg Vitamin B Complex/Vitamin C (Berocca) 1 tab PO DAILY [facility] Last Admin: 02/16/18 10:14 Dose: 1 tab - Labs Labs: 02/13/18 06:43 02/16/18 09:02 PT 12.6 SECONDS (9.7-12.2) H 02/13/18 06:43 INR 1.2 02/13/18 06:43 - Constitutional Appears: Confused, Chronically Ill - Head Exam Head Exam: NORMOCEPHALIC - Eye Exam Eye Exam: PERRL - ENT Exam ENT Exam: Mucous Membranes Dry - Neck Exam Neck Exam: absent: Lymphadenopathy - Respiratory Exam Respiratory Exam: Decreased Breath Sounds - Cardiovascular Exam Cardiovascular Exam: REGULAR RHYTHM - GI/Abdominal Exam GI & Abdominal Exam: Distended, Soft Assessment and Plan (1) NIURKA (acute kidney injury) Status: Acute (2) CVA (cerebral vascular accident) Status: Acute (3) HIV (human immunodeficiency virus infection) Status: Acute - Assessment and Plan (Free Text) Assessment: cont rx as ordered renal function improving slowly
[2018-02-16] MEDS: LamiVUDine 10 mg/ml Syringe PO SCH (18:33)
[2018-02-16] MEDS: metroNIDAZOLE IV 500 mg/100 ml 250 MG in Premixed IV 1 EA IVPB SCH (21:00)
[2018-02-16] MEDS: Magnesium Hydroxide Susp 30 ml UD PO SCH (21:31)
[2018-02-17] MEDS: metroNIDAZOLE IV 500 mg/100 ml 250 MG in Premixed IV 1 EA IVPB SCH ×3 (03:32→19:53)
[2018-02-17] MEDS: Sodium Bicarbonate 8.4% 75 MEQ in Dextrose 5%/0.45% NS 1,000 ML IV SCH ×3 (06:45→17:48)
[2018-02-17 07:17] LABS: ALB/GLOB RATIO 0.8 (1.0-2.1); ALBUMIN 2.7 g/dL (3.5-5.0); CALCIUM 8.3 mg/dl (8.6-10.4)
[2018-02-17] MEDS: INTELENCE 200 MG PO SCH ×2 (09:52→17:33)
[2018-02-17] MEDS: ENTECAVIR 1 MG PO SCH (09:52)
[2018-02-17] MEDS: Vitamin B Complex/Vitamin C Tab PO SCH (09:52)
[2018-02-17] MEDS: POLYETHYLENE GLYCOL 3350 17 GM/Dose PACKET PO SCH (11:48)
[2018-02-17 12:07] LABS: BASO % 0.4 % (0.0-2.0); EOS # 0.1 K/uL (0.0-0.7); EOS % 2.4 % (0.0-4.0); HEMOGLOBIN 9.1 g/dL (12.0-18.0); LYMPH # 1.2 K/uL (1.0-4.3); MEAN CELL VOLUME 98.1 fL (80.0-94.0); MEAN CORPUSCULAR HEMOGLOBIN 33.7 pg (27.0-31.0); MEAN CORPUSCULAR HGB CONC 34.4 g/dL (33.0-37.0); MEAN PLATELET VOLUME 7.5 fL (7.2-11.7); MONO # 0.7 K/uL (0.0-0.8); MONO % 11.2 % (0.0-10.0); NEUT # 3.9 K/uL (1.8-7.0); NRBC % 0.1 % (0.0-2.0); RBC 2.71 Mil/uL (4.40-5.90); RED CELL DISTRIBUTION WIDTH 14.8 % (11.5-14.5)
--- NOTE | 2018-02-17 12:11 | CP.PCM.PN ---
Subjective - Date & Time of Evaluation Date of Evaluation: 02/17/18 Time of Evaluation: 12:09 - Subjective Subjective: Sleepy now Good UO creat decreasing- 4.3 now lytes acceptable Objective - Vital Signs/Intake and Output Vital Signs (last 24 hours): Temp Pulse Resp BP Pulse Ox 98.1 F 90 20 132/78 98 02/17/18 10:00 02/17/18 10:00 02/17/18 10:00 02/17/18 10:00 02/17/18 10:00 Intake and Output: 02/17/18 02/17/18 06:59 18:59 Intake Total 1100 Output Total 800 Balance 300 - Medications Medications: Current Medications Calcium Acetate (Phoslo) 667 mg PO TID [facility] Last Admin: 02/17/18 09:52 Dose: 667 mg Docusate Sodium (Colace) 100 mg PO BID [facility] Last Admin: 02/17/18 09:52 Dose: 100 mg Home Med (Patient's Own Medication) 1 tab PO BID [facility] Last Admin: 02/17/18 09:52 Dose: 1 tab Home Med (Patient's Own Medication) 1 tab PO Q2D [facility] Last Admin: 02/17/18 09:52 Dose: 1 tab Sodium Bicarbonate 75 meq/ (Dextrose/Sodium Chloride) 1,075 mls @ 100 mls/hr IV .[id number] [facility] Last Admin: 02/16/18 22:51 Dose: 100 mls/hr Metronidazole 250 mg/ (Miscellaneous) 50 mls @ 100 mls/hr IVPB Q8H [facility] PRN Reason: Protocol Last Admin: 02/17/18 11:48 Dose: 100 mls/hr Lactulose (Enulose) 20 gm PO [facility] Last Admin: 02/16/18 21:31 Dose: Not Given Lamivudine (Epivir) 50 mg PO Q24H [facility] PRN Reason: Protocol Last Admin: 02/16/18 18:33 Dose: 50 mg Leucovorin Calcium (Leucovorin) 10 mg PO DAILY [facility] Last Admin: 02/17/18 11:13 Dose: 10 mg Magnesium Hydroxide (Milk Of Magnesia) 30 ml PO [facility] Last Admin: 02/16/18 21:31 Dose: 30 ml Mirtazapine (Remeron) 15 mg PO [facility] Last Admin: 02/16/18 21:31 Dose: 15 mg Olanzapine (Zyprexa) 15 mg PO HS [facility] Last Admin: 02/16/18 21:31 Dose: 15 mg Pantoprazole Sodium (Protonix Inj) 40 mg IVP DAILY [facility] Last Admin: 02/17/18 09:51 Dose: 40 mg Polyethylene Glycol (Miralax) 17 gm PO QNOON [facility] Last Admin: 02/17/18 11:48 Dose: 17 gm Raltegravir (Isentress) 400 mg PO BID [facility] PRN Reason: Protocol Last Admin: 02/17/18 09:52 Dose: 400 mg Tenofovir Disoproxil Fumarate (Viread) 300 mg PO Q7D [facility] PRN Reason: Protocol Last Admin: 02/16/18 17:59 Dose: 300 mg Topiramate (Topamax) 25 mg PO DAILY [facility] Last Admin: 02/17/18 09:52 Dose: 25 mg Vitamin B Complex/Vitamin C (Berocca) 1 tab PO DAILY [facility] Last Admin: 02/17/18 09:52 Dose: 1 tab - Labs Labs: 02/13/18 06:43 02/17/18 06:48 PT 12.6 SECONDS (9.7-12.2) H 02/13/18 06:43 INR 1.2 02/13/18 06:43 - Constitutional Appears: No Acute Distress, Confused, Cachectic, Chronically Ill - Head Exam Head Exam: ATRAUMATIC, NORMAL INSPECTION - Eye Exam Eye Exam: EOMI, Normal appearance - Neck Exam Neck Exam: Normal Inspection. absent: Tenderness - Respiratory Exam Respiratory Exam: Clear to Ausculation Bilateral, NORMAL BREATHING PATTERN - Cardiovascular Exam Cardiovascular Exam: REGULAR RHYTHM, +S1 - GI/Abdominal Exam GI & Abdominal Exam: Soft. absent: Tenderness - Extremities Exam Extremities Exam: Normal Inspection. absent: Tenderness - Neurological Exam Neurological Exam: Altered - Skin Skin Exam: Dry, Warm Assessment and Plan (1) NIURKA (acute kidney injury) Status: Acute (2) HIV (human immunodeficiency virus infection) Status: Acute (3) CVA (cerebral vascular accident) Status: Acute (4) Metabolic acidosis Status: Acute (5) CKD (chronic kidney disease) stage 5, GFR less than 15 ml/min Status: Acute - Assessment and Plan (Free Text) Plan: IV fluids follow up lytes, renal function No dialysis now
--- NOTE | 2018-02-17 15:12 | CP.PCM.PN ---
Subjective - Date & Time of Evaluation Date of Evaluation: 02/17/18 Time of Evaluation: 07:30 - Subjective Subjective: clinically same Objective - Vital Signs/Intake and Output Vital Signs (last 24 hours): Temp Pulse Resp BP Pulse Ox 98.1 F 90 20 132/78 98 02/17/18 10:00 02/17/18 10:00 02/17/18 10:00 02/17/18 10:00 02/17/18 10:00 Intake and Output: 02/17/18 02/17/18 06:59 18:59 Intake Total 1100 Output Total 800 Balance 300 - Medications Medications: Current Medications Calcium Acetate (Phoslo) 667 mg PO TID [facility] Last Admin: 02/17/18 14:17 Dose: 667 mg Docusate Sodium (Colace) 100 mg PO BID [facility] Last Admin: 02/17/18 09:52 Dose: 100 mg Home Med (Patient's Own Medication) 1 tab PO BID [facility] Last Admin: 02/17/18 09:52 Dose: 1 tab Home Med (Patient's Own Medication) 1 tab PO Q2D [facility] Last Admin: 02/17/18 09:52 Dose: 1 tab Sodium Bicarbonate 75 meq/ (Dextrose/Sodium Chloride) 1,075 mls @ 100 mls/hr IV .[id number] [facility] Last Admin: 02/17/18 15:03 Dose: 100 mls/hr Metronidazole 250 mg/ (Miscellaneous) 50 mls @ 100 mls/hr IVPB Q8H [facility] PRN Reason: Protocol Last Admin: 02/17/18 11:48 Dose: 100 mls/hr Lactulose (Enulose) 20 gm PO [facility] Last Admin: 02/16/18 21:31 Dose: Not Given Lamivudine (Epivir) 50 mg PO Q24H [facility] PRN Reason: Protocol Last Admin: 02/16/18 18:33 Dose: 50 mg Leucovorin Calcium (Leucovorin) 10 mg PO DAILY [facility] Last Admin: 02/17/18 11:13 Dose: 10 mg Magnesium Hydroxide (Milk Of Magnesia) 30 ml PO [facility] Last Admin: 02/16/18 21:31 Dose: 30 ml Mirtazapine (Remeron) 15 mg PO [facility] Last Admin: 02/16/18 21:31 Dose: 15 mg Olanzapine (Zyprexa) 15 mg PO [facility] Last Admin: 02/16/18 21:31 Dose: 15 mg Pantoprazole Sodium (Protonix Inj) 40 mg IVP DAILY [facility] Last Admin: 02/17/18 09:51 Dose: 40 mg Polyethylene Glycol (Miralax) 17 gm PO QNOON [facility] Last Admin: 02/17/18 11:48 Dose: 17 gm Raltegravir (Isentress) 400 mg PO BID [facility] PRN Reason: Protocol Last Admin: 02/17/18 09:52 Dose: 400 mg Tenofovir Disoproxil Fumarate (Viread) 300 mg PO Q7D [facility] PRN Reason: Protocol Last Admin: 02/16/18 17:59 Dose: 300 mg Topiramate (Topamax) 25 mg PO DAILY [facility] Last Admin: 02/17/18 09:52 Dose: 25 mg Vitamin B Complex/Vitamin C (Berocca) 1 tab PO DAILY [facility] Last Admin: 02/17/18 09:52 Dose: 1 tab - Labs Labs: 02/17/18 11:56 02/17/18 06:48 PT 12.6 SECONDS (9.7-12.2) H 02/13/18 06:43 INR 1.2 02/13/18 06:43 - Constitutional Appears: Well - Head Exam Head Exam: ATRAUMATIC, NORMAL INSPECTION, NORMOCEPHALIC - Eye Exam Eye Exam: EOMI, Normal appearance, PERRL Pupil Exam: NORMAL ACCOMODATION, PERRL - ENT Exam ENT Exam: Mucous Membranes Moist, Normal Exam - Neck Exam Neck Exam: Full ROM, Normal Inspection. absent: Lymphadenopathy - Respiratory Exam Respiratory Exam: Decreased Breath Sounds - Cardiovascular Exam Cardiovascular Exam: REGULAR RHYTHM, +S1, +S2 - GI/Abdominal Exam GI & Abdominal Exam: Soft, Diminished Bowel Sounds - Rectal Exam Rectal Exam: Deferred
--- NOTE | 2018-02-17 15:12 | CP.PCM.PN ---
Subjective - Date & Time of Evaluation Date of Evaluation: 02/17/18 Time of Evaluation: 15:10 - Subjective Subjective: f/u esophagitis Able to swallow and tolerate puree but requires assistance in feeding BMs recorded, on several laxatives Objective - Vital Signs/Intake and Output Vital Signs (last 24 hours): Temp Pulse Resp BP Pulse Ox 98.1 F 90 20 132/78 98 02/17/18 10:00 02/17/18 10:00 02/17/18 10:00 02/17/18 10:00 02/17/18 10:00 Intake and Output: 02/17/18 02/17/18 06:59 18:59 Intake Total 1100 Output Total 800 Balance 300 - Medications Medications: Current Medications Calcium Acetate (Phoslo) 667 mg PO TID [facility] Last Admin: 02/17/18 14:17 Dose: 667 mg Docusate Sodium (Colace) 100 mg PO BID [facility] Last Admin: 02/17/18 09:52 Dose: 100 mg Home Med (Patient's Own Medication) 1 tab PO BID [facility] Last Admin: 02/17/18 09:52 Dose: 1 tab Home Med (Patient's Own Medication) 1 tab PO Q2D [facility] Last Admin: 02/17/18 09:52 Dose: 1 tab Sodium Bicarbonate 75 meq/ (Dextrose/Sodium Chloride) 1,075 mls @ 100 mls/hr IV .[id number] [facility] Last Admin: 02/17/18 15:03 Dose: 100 mls/hr Metronidazole 250 mg/ (Miscellaneous) 50 mls @ 100 mls/hr IVPB Q8H [facility] PRN Reason: Protocol Last Admin: 02/17/18 11:48 Dose: 100 mls/hr Lactulose (Enulose) 20 gm PO [facility] Last Admin: 02/16/18 21:31 Dose: Not Given Lamivudine (Epivir) 50 mg PO Q24H [facility] PRN Reason: Protocol Last Admin: 02/16/18 18:33 Dose: 50 mg Leucovorin Calcium (Leucovorin) 10 mg PO DAILY [facility] Last Admin: 02/17/18 11:13 Dose: 10 mg Magnesium Hydroxide (Milk Of Magnesia) 30 ml PO [facility] Last Admin: 02/16/18 21:31 Dose: 30 ml Mirtazapine (Remeron) 15 mg PO [facility] Last Admin: 02/16/18 21:31 Dose: 15 mg Olanzapine (Zyprexa) 15 mg PO HS [facility] Last Admin: 02/16/18 21:31 Dose: 15 mg Pantoprazole Sodium (Protonix Inj) 40 mg IVP DAILY [facility] Last Admin: 02/17/18 09:51 Dose: 40 mg Polyethylene Glycol (Miralax) 17 gm PO QNOON [facility] Last Admin: 02/17/18 11:48 Dose: 17 gm Raltegravir (Isentress) 400 mg PO BID [facility] PRN Reason: Protocol Last Admin: 02/17/18 09:52 Dose: 400 mg Tenofovir Disoproxil Fumarate (Viread) 300 mg PO Q7D [facility] PRN Reason: Protocol Last Admin: 02/16/18 17:59 Dose: 300 mg Topiramate (Topamax) 25 mg PO DAILY [facility] Last Admin: 02/17/18 09:52 Dose: 25 mg Vitamin B Complex/Vitamin C (Berocca) 1 tab PO DAILY [facility] Last Admin: 02/17/18 09:52 Dose: 1 tab - Labs Labs: 02/17/18 11:56 02/17/18 06:48 PT 12.6 SECONDS (9.7-12.2) H 02/13/18 06:43 INR 1.2 02/13/18 06:43 - Constitutional Appears: Chronically Ill - Eye Exam Eye Exam: absent: Scleral icterus - Cardiovascular Exam Cardiovascular Exam: REGULAR RHYTHM - GI/Abdominal Exam GI & Abdominal Exam: Soft Assessment and Plan (1) Dysphagia Assessment & Plan: able to eat puree Limiting factor is weakness and hand incoordination- needs help at bedside when feeding No plans for PEG Status: Acute (2) NIURKA (acute kidney injury) Assessment & Plan: managed by renal. no dialysis planned Status: Acute (3) CVA (cerebral vascular accident) Status: Acute (4) HIV (human immunodeficiency virus infection) Assessment & Plan: HIV and HCV managed by ID Status: Acute (5) Constipation Assessment & Plan: on several laxatives. Consider stopping Lactulose if BMs OK Status: Acute (6) Esophagitis Assessment & Plan: On Protonix. Clinically doing better Status: Acute
[2018-02-17] MEDS: LamiVUDine 10 mg/ml Syringe PO SCH (17:33)
[2018-02-17] MEDS: Magnesium Hydroxide Susp 30 ml UD PO SCH (21:30)
[2018-02-18] MEDS: Sodium Bicarbonate 8.4% 75 MEQ in Dextrose 5%/0.45% NS 1,000 ML IV SCH (02:40)
[2018-02-18] MEDS: metroNIDAZOLE IV 500 mg/100 ml 250 MG in Premixed IV 1 EA IVPB SCH ×2 (03:23→11:51)
[2018-02-18 06:41] LABS: BASO % 0.4 % (0.0-2.0); EOS # 0.2 K/uL (0.0-0.7); EOS % 2.5 % (0.0-4.0); HEMOGLOBIN 9.4 g/dL (12.0-18.0); LYMPH # 1.4 K/uL (1.0-4.3); LYMPH % 22.4 % (20.0-40.0); MEAN CELL VOLUME 98.4 fL (80.0-94.0); MEAN CORPUSCULAR HGB CONC 33.5 g/dL (33.0-37.0); MEAN PLATELET VOLUME 7.4 fL (7.2-11.7); MONO # 0.7 K/uL (0.0-0.8); MONO % 11.5 % (0.0-10.0); NEUT # 4.1 K/uL (1.8-7.0); NEUT % 63.2 % (50.0-75.0); RBC 2.85 Mil/uL (4.40-5.90); RED CELL DISTRIBUTION WIDTH 14.7 % (11.5-14.5); WHITE BLOOD COUNT 6.4 K/uL (4.8-10.8)
[2018-02-18 07:19] LABS: CALCIUM 8.6 mg/dl (8.6-10.4)
[2018-02-18] MEDS: Vitamin B Complex/Vitamin C Tab PO SCH (09:37)
[2018-02-18] MEDS: INTELENCE 200 MG PO SCH ×2 (09:39→17:47)
--- NOTE | 2018-02-18 11:22 | CP.PCM.PN ---
Subjective - Date & Time of Evaluation Date of Evaluation: 02/18/18 Time of Evaluation: 11:20 - Subjective Subjective: Appears same UO excellent- 2600ml/ 24 hrs chemistries about same HTN stable Objective - Vital Signs/Intake and Output Vital Signs (last 24 hours): Temp Pulse Resp BP Pulse Ox 97.9 F 80 20 147/83 99 02/18/18 08:13 02/18/18 08:13 02/18/18 08:13 02/18/18 08:13 02/18/18 08:13 Intake and Output: 02/18/18 02/18/18 06:59 18:59 Intake Total 1200 Output Total 1200 Balance 0 - Medications Medications: Current Medications Calcium Acetate (Phoslo) 667 mg PO TID [facility] Last Admin: 02/18/18 09:37 Dose: 667 mg Docusate Sodium (Colace) 100 mg PO BID [facility] Last Admin: 02/18/18 09:37 Dose: 100 mg Home Med (Patient's Own Medication) 1 tab PO BID [facility] Last Admin: 02/18/18 09:39 Dose: 1 tab Home Med (Patient's Own Medication) 1 tab PO Q2D [facility] Last Admin: 02/17/18 09:52 Dose: 1 tab Sodium Bicarbonate 75 meq/ (Dextrose/Sodium Chloride) 1,075 mls @ 100 mls/hr IV .[id number] [facility] Last Admin: 02/18/18 02:40 Dose: 100 mls/hr Metronidazole 250 mg/ (Miscellaneous) 50 mls @ 100 mls/hr IVPB Q8H [facility] PRN Reason: Protocol Last Admin: 02/18/18 03:23 Dose: 100 mls/hr Lactulose (Enulose) 20 gm PO [facility] Last Admin: 02/17/18 21:30 Dose: 20 gm Lamivudine (Epivir) 50 mg PO Q24H [facility] PRN Reason: Protocol Last Admin: 02/17/18 17:33 Dose: 50 mg Leucovorin Calcium (Leucovorin) 10 mg PO DAILY [facility] Last Admin: 02/18/18 09:38 Dose: 10 mg Magnesium Hydroxide (Milk Of Magnesia) 30 ml PO [facility] Last Admin: 02/17/18 21:30 Dose: 30 ml Mirtazapine (Remeron) 15 mg PO [facility] Last Admin: 02/17/18 21:45 Dose: 15 mg Olanzapine (Zyprexa) 15 mg PO HS [facility] Last Admin: 02/17/18 21:30 Dose: 15 mg Pantoprazole Sodium (Protonix Inj) 40 mg IVP DAILY [facility] Last Admin: 02/18/18 09:37 Dose: 40 mg Polyethylene Glycol (Miralax) 17 gm PO QNOON [facility] Last Admin: 02/17/18 11:48 Dose: 17 gm Raltegravir (Isentress) 400 mg PO BID [facility] PRN Reason: Protocol Last Admin: 02/18/18 09:37 Dose: 400 mg Tenofovir Disoproxil Fumarate (Viread) 300 mg PO Q7D [facility] PRN Reason: Protocol Last Admin: 02/16/18 17:59 Dose: 300 mg Topiramate (Topamax) 25 mg PO DAILY [facility] Last Admin: 02/18/18 09:37 Dose: 25 mg Vitamin B Complex/Vitamin C (Berocca) 1 tab PO DAILY [facility] Last Admin: 02/18/18 09:37 Dose: 1 tab - Labs Labs: 02/18/18 06:30 02/18/18 06:30 PT 12.6 SECONDS (9.7-12.2) H 02/13/18 06:43 INR 1.2 02/13/18 06:43 - Constitutional Appears: No Acute Distress, Chronically Ill - Head Exam Head Exam: ATRAUMATIC, NORMAL INSPECTION - Eye Exam Eye Exam: EOMI, Normal appearance - Neck Exam Neck Exam: Normal Inspection. absent: Tenderness - Respiratory Exam Respiratory Exam: Clear to Ausculation Bilateral, NORMAL BREATHING PATTERN - Cardiovascular Exam Cardiovascular Exam: REGULAR RHYTHM, +S1 - GI/Abdominal Exam GI & Abdominal Exam: Soft. absent: Tenderness - Extremities Exam Extremities Exam: Normal Inspection. absent: Tenderness - Neurological Exam Neurological Exam: Awake, CN II-XII Intact - Skin Skin Exam: Dry, Warm Assessment and Plan (1) NIURKA (acute kidney injury) Status: Acute (2) HIV (human immunodeficiency virus infection) Status: Acute (3) CVA (cerebral vascular accident) Status: Acute (4) Metabolic acidosis Status: Acute (5) CKD (chronic kidney disease) stage 5, GFR less than 15 ml/min Status: Acute - Assessment and Plan (Free Text) Plan: Stop IV fluids change to oral bicarb No HD now Will need stent monitoring
[2018-02-18] MEDS: POLYETHYLENE GLYCOL 3350 17 GM/Dose PACKET PO SCH (11:53)
--- NOTE | 2018-02-18 12:16 | CP.PCM.PN ---
Subjective - Date & Time of Evaluation Date of Evaluation: 02/18/18 Time of Evaluation: 07:00 - Subjective Subjective: slow progress awake alert nad Objective - Vital Signs/Intake and Output Vital Signs (last 24 hours): Temp Pulse Resp BP Pulse Ox 97.9 F 80 20 147/83 99 02/18/18 08:13 02/18/18 08:13 02/18/18 08:13 02/18/18 08:13 02/18/18 08:13 Intake and Output: 02/18/18 02/18/18 06:59 18:59 Intake Total 1200 Output Total 1200 Balance 0 - Medications Medications: Current Medications Calcium Acetate (Phoslo) 667 mg PO TID [facility] Last Admin: 02/18/18 09:37 Dose: 667 mg Docusate Sodium (Colace) 100 mg PO BID [facility] Last Admin: 02/18/18 09:37 Dose: 100 mg Home Med (Patient's Own Medication) 1 tab PO BID [facility] Last Admin: 02/18/18 09:39 Dose: 1 tab Home Med (Patient's Own Medication) 1 tab PO Q2D [facility] Last Admin: 02/17/18 09:52 Dose: 1 tab Metronidazole 250 mg/ (Miscellaneous) 50 mls @ 100 mls/hr IVPB Q8H [facility] PRN Reason: Protocol Last Admin: 02/18/18 11:51 Dose: 100 mls/hr Lactulose (Enulose) 20 gm PO HS [facility] Last Admin: 02/17/18 21:30 Dose: 20 gm Lamivudine (Epivir) 50 mg PO Q24H [facility] PRN Reason: Protocol Last Admin: 02/17/18 17:33 Dose: 50 mg Leucovorin Calcium (Leucovorin) 10 mg PO DAILY [facility] Last Admin: 02/18/18 09:38 Dose: 10 mg Magnesium Hydroxide (Milk Of Magnesia) 30 ml PO HS [facility] Last Admin: 02/17/18 21:30 Dose: 30 ml Mirtazapine (Remeron) 15 mg PO HS [facility] Last Admin: 02/17/18 21:45 Dose: 15 mg Olanzapine (Zyprexa) 15 mg PO HS [facility] Last Admin: 02/17/18 21:30 Dose: 15 mg Pantoprazole Sodium (Protonix Inj) 40 mg IVP DAILY [facility] Last Admin: 02/18/18 09:37 Dose: 40 mg Polyethylene Glycol (Miralax) 17 gm PO QNOON [facility] Last Admin: 02/18/18 11:53 Dose: Not Given Raltegravir (Isentress) 400 mg PO BID [facility] PRN Reason: Protocol Last Admin: 02/18/18 09:37 Dose: 400 mg Sodium Bicarbonate (Sodium Bicarbonate Tab) 650 mg PO BID [facility] Tenofovir Disoproxil Fumarate (Viread) 300 mg PO Q7D [facility] PRN Reason: Protocol Last Admin: 02/16/18 17:59 Dose: 300 mg Topiramate (Topamax) 25 mg PO DAILY [facility] Last Admin: 02/18/18 09:37 Dose: 25 mg Vitamin B Complex/Vitamin C (Berocca) 1 tab PO DAILY [facility] Last Admin: 02/18/18 09:37 Dose: 1 tab - Labs Labs: 02/18/18 06:30 02/18/18 06:30 PT 12.6 SECONDS (9.7-12.2) H 02/13/18 06:43 INR 1.2 02/13/18 06:43 - Constitutional Appears: Non-toxic, Chronically Ill - Head Exam Head Exam: NORMOCEPHALIC - Eye Exam Eye Exam: PERRL. absent: Scleral icterus - ENT Exam ENT Exam: Mucous Membranes Dry - Neck Exam Neck Exam: absent: Lymphadenopathy - Respiratory Exam Respiratory Exam: Decreased Breath Sounds - Cardiovascular Exam Cardiovascular Exam: REGULAR RHYTHM - GI/Abdominal Exam GI & Abdominal Exam: Distended, Soft Assessment and Plan (1) NIURKA (acute kidney injury) Status: Acute (2) CVA (cerebral vascular accident) Status: Acute (3) HIV (human immunodeficiency virus infection) Status: Acute
[2018-02-18 15:52] VITALS: BP 114/67; PULSE 91; TEMP 98.4; O2SAT 97
--- NOTE | 2018-02-18 16:49 | CP.PCM.PN ---
Subjective - Date & Time of Evaluation Date of Evaluation: 02/18/18 Time of Evaluation: 07:30 - Subjective Subjective: clinically same Objective - Vital Signs/Intake and Output Vital Signs (last 24 hours): Temp Pulse Resp BP Pulse Ox 98.4 F 91 H 20 114/67 97 02/18/18 15:00 02/18/18 15:00 02/18/18 15:00 02/18/18 15:00 02/18/18 15:00 Intake and Output: 02/18/18 02/18/18 06:59 18:59 Intake Total 1200 1200 Output Total 1200 2400 Balance 0 -1200 - Medications Medications: Current Medications Calcium Acetate (Phoslo) 667 mg PO TID [facility] Last Admin: 02/18/18 13:30 Dose: 667 mg Docusate Sodium (Colace) 100 mg PO BID [facility] Last Admin: 02/18/18 09:37 Dose: 100 mg Home Med (Patient's Own Medication) 1 tab PO BID [facility] Last Admin: 02/18/18 09:39 Dose: 1 tab Home Med (Patient's Own Medication) 1 tab PO Q2D [facility] Last Admin: 02/17/18 09:52 Dose: 1 tab Metronidazole 250 mg/ (Miscellaneous) 50 mls @ 100 mls/hr IVPB Q8H [facility] PRN Reason: Protocol Last Admin: 02/18/18 11:51 Dose: 100 mls/hr Lactulose (Enulose) 20 gm PO HS [facility] Last Admin: 02/17/18 21:30 Dose: 20 gm Lamivudine (Epivir) 50 mg PO Q24H [facility] PRN Reason: Protocol Last Admin: 02/17/18 17:33 Dose: 50 mg Leucovorin Calcium (Leucovorin) 10 mg PO DAILY [facility] Last Admin: 02/18/18 09:38 Dose: 10 mg Magnesium Hydroxide (Milk Of Magnesia) 30 ml PO HS [facility] Last Admin: 02/17/18 21:30 Dose: 30 ml Mirtazapine (Remeron) 15 mg PO HS [facility] Last Admin: 02/17/18 21:45 Dose: 15 mg Olanzapine (Zyprexa) 15 mg PO HS [facility] Last Admin: 02/17/18 21:30 Dose: 15 mg Pantoprazole Sodium (Protonix Inj) 40 mg IVP DAILY [facility] Last Admin: 02/18/18 09:37 Dose: 40 mg Polyethylene Glycol (Miralax) 17 gm PO QNOON [facility] Last Admin: 02/18/18 11:53 Dose: Not Given Raltegravir (Isentress) 400 mg PO BID [facility] PRN Reason: Protocol Last Admin: 02/18/18 09:37 Dose: 400 mg Sodium Bicarbonate (Sodium Bicarbonate Tab) 650 mg PO BID [facility] Tenofovir Disoproxil Fumarate (Viread) 300 mg PO Q7D [facility] PRN Reason: Protocol Last Admin: 02/16/18 17:59 Dose: 300 mg Topiramate (Topamax) 25 mg PO DAILY [facility] Last Admin: 02/18/18 09:37 Dose: 25 mg Vitamin B Complex/Vitamin C (Berocca) 1 tab PO DAILY [facility] Last Admin: 02/18/18 09:37 Dose: 1 tab - Labs Labs: 02/18/18 06:30 02/18/18 06:30 PT 12.6 SECONDS (9.7-12.2) H 02/13/18 06:43 INR 1.2 02/13/18 06:43 - Constitutional Appears: Well - Head Exam Head Exam: ATRAUMATIC, NORMAL INSPECTION, NORMOCEPHALIC - Eye Exam Eye Exam: EOMI, Normal appearance, PERRL Pupil Exam: NORMAL ACCOMODATION, PERRL - ENT Exam ENT Exam: Mucous Membranes Moist, Normal Exam - Neck Exam Neck Exam: Full ROM, Normal Inspection. absent: Lymphadenopathy - Respiratory Exam Respiratory Exam: Decreased Breath Sounds - Cardiovascular Exam Cardiovascular Exam: REGULAR RHYTHM, +S1, +S2 - GI/Abdominal Exam GI & Abdominal Exam: Soft, Diminished Bowel Sounds - Rectal Exam Rectal Exam: Deferred
--- NOTE | 2018-02-18 16:54 | CP.PCM.PN ---
Subjective - Date & Time of Evaluation Date of Evaluation: 02/18/18 Time of Evaluation: 16:55 - Subjective Subjective: alert, awake, follows commands, no acute distress. Objective - Vital Signs/Intake and Output Vital Signs (last 24 hours): Temp Pulse Resp BP Pulse Ox 98.4 F 91 H 20 114/67 97 02/18/18 15:00 02/18/18 15:00 02/18/18 15:00 02/18/18 15:00 02/18/18 15:00 Intake and Output: 02/18/18 02/18/18 06:59 18:59 Intake Total 1200 1200 Output Total 1200 2400 Balance 0 -1200 - Medications Medications: Current Medications Calcium Acetate (Phoslo) 667 mg PO TID [facility] Last Admin: 02/18/18 13:30 Dose: 667 mg Docusate Sodium (Colace) 100 mg PO BID [facility] Last Admin: 02/18/18 09:37 Dose: 100 mg Home Med (Patient's Own Medication) 1 tab PO BID [facility] Last Admin: 02/18/18 09:39 Dose: 1 tab Home Med (Patient's Own Medication) 1 tab PO Q2D [facility] Last Admin: 02/17/18 09:52 Dose: 1 tab Metronidazole 250 mg/ (Miscellaneous) 50 mls @ 100 mls/hr IVPB Q8H [facility] PRN Reason: Protocol Last Admin: 02/18/18 11:51 Dose: 100 mls/hr Lactulose (Enulose) 20 gm PO HS [facility] Last Admin: 02/17/18 21:30 Dose: 20 gm Lamivudine (Epivir) 50 mg PO Q24H [facility] PRN Reason: Protocol Last Admin: 02/17/18 17:33 Dose: 50 mg Leucovorin Calcium (Leucovorin) 10 mg PO DAILY [facility] Last Admin: 02/18/18 09:38 Dose: 10 mg Magnesium Hydroxide (Milk Of Magnesia) 30 ml PO [facility] Last Admin: 02/17/18 21:30 Dose: 30 ml Mirtazapine (Remeron) 15 mg PO HS [facility] Last Admin: 02/17/18 21:45 Dose: 15 mg Olanzapine (Zyprexa) 15 mg PO HS [facility] Last Admin: 02/17/18 21:30 Dose: 15 mg Pantoprazole Sodium (Protonix Inj) 40 mg IVP DAILY [facility] Last Admin: 02/18/18 09:37 Dose: 40 mg Polyethylene Glycol (Miralax) 17 gm PO QNOON [facility] Last Admin: 02/18/18 11:53 Dose: Not Given Raltegravir (Isentress) 400 mg PO BID [facility] PRN Reason: Protocol Last Admin: 02/18/18 09:37 Dose: 400 mg Sodium Bicarbonate (Sodium Bicarbonate Tab) 650 mg PO BID [facility] Tenofovir Disoproxil Fumarate (Viread) 300 mg PO Q7D [facility] PRN Reason: Protocol Last Admin: 02/16/18 17:59 Dose: 300 mg Topiramate (Topamax) 25 mg PO DAILY [facility] Last Admin: 02/18/18 09:37 Dose: 25 mg Vitamin B Complex/Vitamin C (Berocca) 1 tab PO DAILY [facility] Last Admin: 02/18/18 09:37 Dose: 1 tab - Labs Labs: 02/18/18 06:30 02/18/18 06:30 PT 12.6 SECONDS (9.7-12.2) H 02/13/18 06:43 INR 1.2 02/13/18 06:43 Assessment and Plan - Assessment and Plan (Free Text) Assessment: Patient admitted with acute renal insufficiency, creatinine of 6.1 from the skilled nursing. Awake, alert, follows commands, weak from CVA, has chronic dysphagia. Creatinine 4.4 today, cleared by DR Laureano, plan to discharge back to the skilled nursing [facility] today.
[2018-02-18] MEDS: LamiVUDine 10 mg/ml Syringe PO SCH (17:46)
--- NOTE | 2018-02-18 21:58 | CON ---
DATE: 02/10/2018 CHIEF COMPLAINT: Hydronephrosis. HISTORY OF PRESENT ILLNESS: The patient is non-communicative male who has multiple psychiatric problems and history of CA. The consult was called by the primary doctor because the patient was noted to have an elevated creatinine and a hydronephrosis due to left obstructing calculi. Further history is impossible. SOCIAL HISTORY: The patient is confined to a assisted. He has a severe psychiatric problems. He is HIV positive and has a history of being non-communicative for many years. PHYSICAL EXAMINATION: VITAL SIGNS: The patient is afebrile. HEAD, EARS, EYES, NOSE AND THROAT: Within normal limits. NECK: Supple. There are no bruits or masses. CHEST: Clear bilaterally. There are no rales or rhonchi. HEART: Normal sinus rhythm. ABDOMEN: Soft and nontender. There are no masses or organomegaly. There is no CVA tenderness. EXTREMITIES: Normal. RECTAL: Shows a 3+ prostate. Testicles, epididymis and cord are normal. IMPRESSION: Left hydronephrosis. PLAN: If the patient can be medically cleared stenting is appropriate then just to wait someone will need to sign the consent for the procedure. I have discussed this with the primary doctor, Dr. Gonzalez. Pete Su MD
--- NOTE | 2018-02-19 06:51 | OP ---
PROCEDURE DATE: 02/14/2018 PREOPERATIVE DIAGNOSIS: Hydronephrosis secondary obstructing ureteral calculi. POSTOPERATIVE DIAGNOSIS: Hydronephrosis secondary obstructing ureteral calculi. PROCEDURE: Cystoscopy and insertion of left ureteral stent. SURGEON: Pete Su MD DESCRIPTION OF PROCEDURE: Prior to the procedure, a detailed informed consent was obtained from the brother. All risks, complications and alternatives were explained. He indicated that he was the person responsible for making decisions for the patient and signed the consent. The patient was brought into the room. He was already on IV antibiotics. He was anesthetized and draped and prepped in lithotomy position. He was cystoscoped with a #21 Storz panendoscope. The pendulous membranes and prostatic urethra were normal. The x-rays were present in the room as well as the x-ray films. The left ureteral orifice was cannulized after a time-out was taken, according to the rules and regulations of [facility]. Guidewire was passed above the stone and into the renal pelvis. A 6-Senegalese double-J stent was passed over the wire. The patient tolerated this procedure very well and was sent to the recovery room in good condition. Both the patient's brother and the Dr. Gonzalez were reminded that the stent must be removed within 1-3 months and definitive treatment of the stone must be attempted. Pete Su MD
== END 2018-02-18 20:44 | DRG 682 ==
LOC: C.ER 17:34 → C.9E 20:56 → C.3T 22:57
PROVIDERS: ADMIT Internal Medicine Nephrology; ATTEND Internal Medicine Nephrology
PROC: 0DJ08ZZ Inspection of Upper Intestinal Tract, Via Natural or Artificial Opening Endoscopic (ICD-10-PCS; 2018-02-13)
PROC: 0T778DZ Dilation of Left Ureter with Intraluminal Device, Via Natural or Artificial Opening Endoscopic (ICD-10-PCS; principal; 2018-02-14 14:25)
DX: N17.9 Acute kidney failure, unspecified (principal); N13.2 Hydronephrosis with renal and ureteral calculous obstruction; B20 Human immunodeficiency virus [HIV] disease; E87.2 Acidosis; R18.8 Other ascites; K21.0 Gastro-esophageal reflux disease with esophagitis; K44.9 Diaphragmatic hernia without obstruction or gangrene; I69.354 Hemiplegia and hemiparesis following cerebral infarction affecting left non-dominant side; B18.1 Chronic viral hepatitis B without delta-agent; I69.320 Aphasia following cerebral infarction; R13.10 Dysphagia, unspecified; N18.5 Chronic kidney disease, stage 5; D64.9 Anemia, unspecified; F17.210 Nicotine dependence, cigarettes, uncomplicated; B18.2 Chronic viral hepatitis C; F20.9 Schizophrenia, unspecified; K59.00 Constipation, unspecified; I69.322 Dysarthria following cerebral infarction; Z79.899 Other long term (current) drug therapy

== ENCOUNTER 2018-06-24 04:36 | Emergency (ER) | payer MEDICARE, MEDICAID ==
[2018-06-24 04:59] VITALS: O2SAT 100
--- NOTE | 2018-06-24 06:19 | C.PDOC ---
History Of Present Illness 52 year old male presents to the ER via EMS from [facility] presents s/p fall. As per skilled nursing staff patient was getting out of bed when he fell sustaining a hematoma to the forehead and pain to the right shoulder. Patient does not recall hitting his head or LOC. Patient is s/p Femur fracture, has past Hx of seizure, TIA, and schizophrenia. Denies weakness or numbness. - HPI Time Seen by Provider: 06/24/18 04:43 Chief Complaint (Nursing): Trauma History Per: Patient History/Exam Limitations: no limitations Onset/Duration Of Symptoms: Hrs Injury Occurred (Timing): Just Before Arrival Location Of Injury: Right: Shoulder, Anterior: Head Recent travel outside of the [place]: No Past Medical History Reviewed: Historical Data, Nursing Documentation, Vital Signs Vital Signs: Last Vital Signs Temp Pulse 60 06/24/18 04:54 Resp 18 06/24/18 04:54 BP 135/86 06/24/18 04:54 Pulse Ox 100 06/24/18 04:54 - Medical History PMH: Fractures, HIV, Schizophrenia, Seizures, TIA Denies: Chronic Kidney Disease - [facility] Procedures DILATION OF LEFT URETER WITH INTRALUMINAL DEVICE, ENDO (02/07/18) INSPECTION OF UPPER INTESTINAL TRACT, ENDO (02/07/18) Family History: States: Unknown Family Hx - Social History Hx Alcohol Use: No Hx Substance Use: No Review Of Systems Eyes: Negative for: Vision Change Gastrointestinal: Negative for: Nausea, Vomiting Musculoskeletal: Positive for: Shoulder Pain (Right). Negative for: Neck Pain Skin: Positive for: Other (Hematoma to left forehead) Neurological: Negative for: Weakness, Numbness Physical Exam - Physical Exam Appears: Non-toxic Skin: Warm, Dry Head: Normacephalic, Other (Hematoma to left forehead) Eye(s): bilateral: Normal Inspection, PERRL, EOMI Oral Mucosa: Moist Neck: Normal, No Midline Cervical Tenderness, No Paracervical Tenderness, Supple Chest: Symmetrical, No Tenderness Cardiovascular: Rhythm Regular Respiratory: Normal Breath Sounds, No Rales, No Rhonchi, No Wheezing Extremity: Normal ROM (x4), Tenderness (Right shoulder to palpation), No Deformity, No Swelling Pulses: Left Radial: Normal, Right Radial: Normal Neurological/Psych: Normal Motor, Normal Sensation, Other (Mental status is at baseline) ED Course And Treatment O2 Sat by Pulse Oximetry: 100 (Room air) Pulse Ox Interpretation: Normal - Other Rad Right shoulder x-ray X-Ray: Interpreted by Me, Viewed By Me Interpretation: No acute fracture or dislocation. - CT Scan/US CT Head Other Rad Studies (CT/US): Read By Radiologist, Radiology Report Reviewed CT/US Interpretation: EXAM: CT Head without Intravenous Contrast. CLINICAL HISTORY: Fall. TECHNIQUE: Axial computed tomography images of the head/brain without intravenous contrast. 1102.07 mGy-cm. COMPARISON: None provided. FINDINGS: BRAIN. No acute intraparenchymal hemorrhage. No mass lesion. No CT evidence for acute territorial infarct. No midline shift or extra-axial collections. Generalized cerebral atrophy and evidence of microangiopathic disease, the latter demonstrated by periventricular white matter hypodensities. VENTRICLES: No hydrocephalus. ORBITS: The orbits are unremarkable. SINUSES AND MASTOIDS: Extensive mucosal thickening in all paranasal sinuses and ethmoid air cells. Mastoid air cells are clear. BONES: No fracture. SOFT TISSUES: Unremarkable. IMPRESSION: No acute intracranial abnormality. Progress Note: Right shoulder x-ray and CT head ordered, results were negative. Patient is resting comfortably in the ER in no acute distress, lower extremities are without injury, moving b/l LE easily, knees are flexed while patient lays in bed, vitals are stable, patient cleared for discharge back to skilled nursing. Disposition - Disposition Referrals: Debra Gonzalez MD [Staff Provider] - Disposition: HOME/ ROUTINE Disposition Time: 06:33 Condition: STABLE Additional Instructions: Please follow up with PMD Continue tylenol PO Return to ER if patient becomes more drowsy than usual, lethargic, vomiting, severe headache or worse Instructions: Contusion (DC) Forms: [employer] (Slovak) - Clinical Impression Clinical Impression: Shoulder pain, right, Hematoma - PA / STAFF CERTIFIED NURSE MIDWIFE / Resident Statement MD/DO has reviewed & agrees with the documentation as recorded. - Scribe Statement The provider has reviewed the documentation as recorded by the Scribmodesto Joseph All medical record entries made by the Scribe were at my direction and personally dictated by me. I have reviewed the chart and agree that the record accurately reflects my personal performance of the history, physical exam, medical decision making, and the department course for this patient. I have also personally directed, reviewed, and agree with the discharge instructions and disposition.
--- NOTE | 2018-06-24 08:19 | CT ---
Date of service: 06/24/2018 PROCEDURE: CT HEAD WITHOUT CONTRAST. HISTORY: head trauma, fall COMPARISON: None available. TECHNIQUE: Axial computed tomography images were obtained through the head/brain without intravenous contrast. Radiation dose: Total exam DLP = 1102.07 mGy-cm. This CT exam was performed using one or more of the following dose reduction techniques: Automated exposure control, adjustment of the mA and/or kV according to patient size, and/or use of iterative reconstruction technique. FINDINGS: HEMORRHAGE: No intracranial hemorrhage. BRAIN: No mass effect or edema. Extensive confluent low attenuation seen within the bilateral periventricular and subcortical white matter suggestive for severe chronic microvascular ischemic changes; however, additional etiologies cannot be excluded. Correlation with MRI may be helpful if clinically indicated. Bilateral caudate head and basal ganglia lacunar infarcts. Cerebral and cerebellar atrophy. Prominence of the ventricles. VENTRICLES: Prominent. CALVARIUM: Unremarkable. PARANASAL SINUSES: Dense mucosal opacification of the bilateral maxillary sinuses, sphenoid sinus, ethmoid air cells, and frontal sinus. MASTOID AIR CELLS: Unremarkable as visualized. No inflammatory changes. OTHER FINDINGS: None. IMPRESSION: Extensive confluent low attenuation seen within the bilateral periventricular and subcortical white matter suggestive for severe chronic microvascular ischemic changes; however, additional etiologies cannot be excluded. Correlation with MRI may be helpful if clinically indicated. Bilateral caudate head and basal ganglia lacunar infarcts. Cerebral and cerebellar atrophy. Prominence of the ventricles. Dense mucosal opacification of the bilateral maxillary sinuses, sphenoid sinus, ethmoid air cells, and frontal sinus. If symptoms persists, consider correlation with MRI. A preliminary report was generated at 6:23 a.m. on 06/24/[address] Estrellita Mabry from [employer] [facility]. This case was placed in the PA review folder.
--- NOTE | 2018-06-24 09:04 | RAD ---
Date of service: 06/24/2018 PROCEDURE: Radiographs of the Right Shoulder HISTORY: shoulder pain, fall COMPARISON: None FINDINGS: BONES: A lateral clavicular shaft fracture is present with the distal fracture fragment lying inferior. There is overriding of the fracture fragments. The apex of the proximal fracture fragment points cephalad. JOINTS: Glenohumeral and acromioclavicular minimal osteoarthritis. The joint is maintained. Right sternoclavicular joint is maintained. SOFT TISSUES: Normal. OTHER FINDINGS: None. IMPRESSION: Lateral clavicular fracture with the aforementioned displacement overriding and apical angulation trace deformity. Comments: Prior to the dictation these findings were called in to the ER and given to the Vee KRAMER at approximately 8:55 a.m. on 06/24/2018
[2018-06-24 12:31] VITALS: BP 114/74; PULSE 61; RESP 20; TEMP 98
== END 2018-06-24 11:47 | disposition home or self-care (01) ==
LOC: C.ER 04:36
DX: S42.021A Displaced fracture of shaft of right clavicle, initial encounter for closed fracture (principal); S00.83XA Contusion of other part of head, initial encounter; W06.XXXA Fall from bed, initial encounter; Y92.129 Unspecified place in nursing home as the place of occurrence of the external cause